=== PATIENT | female | born 1980 | race African-American/Black ===

== ENCOUNTER 2024-01-12 09:09 | Outpatient (CLI) | payer OTHER, SELFPAY ==
--- NOTE | ~2024-01-12 | MMUS_ITS ---
EXAMINATION: MM diagnostic dora BI w nilsa, US breast BI limited HISTORY: Palpable lump at the 3:00 location of the left breast TECHNIQUE: Craniocaudal, mediolateral, and mediolateral oblique 3-D tomosynthesis images of the breas ts were performed and synthetic 2-D images were generated. CAD analysis was submitted and interpreted . High resolution limited bilateral breast ultrasound was performed. COMPARISON: None, baseline BREAST PARENCHYMAL COMPOSITION: The breasts are extremely dense, which lowers the sensitivity of mamm ography. FINDINGS: MAMMOGRAPHIC FINDINGS: Right breast: There is a 1.7 cm round, obscured, equal density mass in the middle third of the outer breast at the 9:00 location, approximately 5 cm from the nipple. No suspicious calcification or archi tectural distortion are identified. Left breast: There appears to be an approximately 1.9 cm obscured, low density mass in the middle thi rd of the outer breast at the 2:00 location, 6 cm from the nipple corresponding to the area of palpab le concern. There is a 2.2 cm round, obscured, equal density mass in the anterior/middle third of the inner breast at the 9:00 location, 3 cm from the nipple. No suspicious calcification or architectura l distortion are identified. ULTRASOUND: Right breast: There is a 1.3 cm cyst at the 9:00 location, 3 cm from the nipple. There is a 1.3 x 0.7 cm oval, circumscribed, parallel, hypoechoic mass with no posterior features or internal vascularity at the 10:00 location, 3 cm from the nipple. An 8 mm round mass with similar sonographic features is seen at the 11:00 location, 2 cm from the nipple. A 4 mm mass with similar sonographic features is s een at the 12:00 location, 4 cm from the nipple. Left breast: There is a 2 cm cyst of the breast at the 2:00 location, 5 cm from the nipple correspond ing to the palpable abnormality of concern with a contiguous 6 mm complex cystic and solid component. There is a 9 mm round cyst at the 12:00 location, 4 cm from the nipple. There is a 5 mm cyst at the 1:00 location, 4 cm from the nipple. There is a 2.2 x 1.6 cm cyst at the 8:00 location, 3 cm from the nipple. A 6 mm cyst is noted at the 9:00 location, 3 cm from the nipple. There is a 1.9 cm cyst at t he 10:00 location, 4 cm from the nipple. IMPRESSION: 1. Probably benign left breast mass corresponding to the palpable abnormality of concern and probably benign masses at the 10:00, 11:00, and 12:00 locations of the right breast as detailed above. 2. Recommend 6 month follow-up bilateral diagnostic mammogram and ultrasound. BI-RADS category 3, probably benign findings. Reviewed, dictated and finalized at location L. [employer] IMPRESSION: 1. Probably benign left breast mass corresponding to the palpable abnormality o f concern and probably benign masses at the 10:00, 11:00, and 12:00 locations o f the right breast as detailed above. 2. Recommend 6 month follow-up bilateral diagnostic mammogram and ultrasound. BI-RADS category 3, probably benign findings.
== END 2024-01-12 09:10 | disposition home or self-care (01) ==
PROVIDERS: PCP Nurse Practitioner Family; Visit Provider Family Medicine
DX: Z12.31 Encounter for screening mammogram for malignant neoplasm of breast (principal); R92.8 Other abnormal and inconclusive findings on diagnostic imaging of breast
CPT/HCPCS: 76642; 77062; 77066; G0279

== ENCOUNTER 2024-02-29 08:26 | Outpatient (CLI) | payer OTHER, SELFPAY ==
--- NOTE | ~2024-02-29 | US_ITS ---
EXAMINATION: US pelvic complete DATE: 02/29/2024 09:35 INDICATION: Pelvic pain Comparison:No prior studies for comparison. TECHNIQUE: Multiple transabdominal and endovaginal sonographic images of the pelvis performed. FINDINGS: The uterus measures 10 x 5.3 x 5.8. The endometrial complex measures 6.5. The right ovary measures 6.5 x 4.3 x 5.3 cm and the left ovary measures 4.8 x 1.9 x 3.4 cm. There is a right ovarian cyst measuring 3.2 cm. There are small follicles in each ovary. Normal doppler signal in both ovaries. There is no free fluid in the pelvis. There are no abnormal masses seen on either side. IMPRESSION: 1. Right ovarian cyst measuring 3.2 cm. Reviewed, dictated and finalized at location B.
== END 2024-02-29 08:27 ==
PROVIDERS: PCP Nurse Practitioner; Visit Provider Nurse Practitioner
DX: N92.0 Excessive and frequent menstruation with regular cycle (principal); N83.201 Unspecified ovarian cyst, right side
CPT/HCPCS: 76856

== ENCOUNTER 2024-06-13 20:50 | Observation (INO) | payer OTHER, SELFPAY ==
--- NOTE | ~2024-06-13 | XR_ITS ---
EXAMINATION: XR chest 1V portable Exam Date/Time: 06/13/2024 22:23 CDT HISTORY: dyspnea Comparison: 09/24/2023. RESULT: Lines, tubes, and devices: None. Lungs and pleura: Clear. Cardiomediastinal silhouette: Stable. Other: No acute osseous or upper abdominal finding. IMPRESSION: No acute cardiopulmonary process. Reviewed, dictated and finalized at location K.
[2024-06-13 21:09] VITALS: BP 126/69; PULSE 95; RESP 20; TEMP 36.6; O2SAT 100
--- NOTE | 2024-06-13 21:27 | ECG_ITS ---
Test Date: 2024-06-13 21:58:02 Measurements Intervals [place] Rate: 87 P: 64 MT: 160 QRS: 27 QRSD: 81 T: 33 QT: 374 QTc: 450 Interpretive Statements SINUS RHYTHM No previous ECG available for comparison Electronically Signed On 06-14-2024 14:41:02 CDT by Ally Burdick M.D.
[2024-06-13 21:51] VITALS: RESP 18
[2024-06-13 21:52] VITALS: BP 113/74; PULSE 86; RESP 15; O2SAT 100
[2024-06-13 21:53] LABS: BEDSIDEPREGUCG Negative
[2024-06-13 21:59] LABS: Basophils Absolute Auto 0.1 K/mm3 (0.0-0.1); Basophils Percent Auto 1.2 % (0.2-1.2); Eosinophils Percent Auto 0.8 % (0-4.4); Hematocrit 21.8 % (37.0-47.0); Immature Granulocyte Absolute 0.01 K/mm3 (0.00-0.031); Immature Granulocyte Percent A 0.2 % (0-0.5); Lymphocytes Absolute Auto 1.63 K/mm3 (0.9-3.2); Lymphocytes Percent Auto 31.7 % (18.3-44.2); Mean Corpuscular HGB Conc 28.9 g/dl (32-36); Mean Corpuscular Hemoglobin 21.3 pg (26-34); Mean Corpuscular Volume 73.6 fl (80-100); Mean Platelet Volume 9.8 fl (7.4-10.4); Monocytes Absolute Auto 0.6 K/mm3 (0.1-0.6); Monocytes Percent Auto 11.1 % (2.6-8.5); Neutrophils Absolute Auto 2.8 K/mm3 (1.3-6.7); Platelet Count Result 380 k/mm3 (150-375); Red Blood Count 2.96 M/mm3 (4.2-5.4); Red Cell Distribution Width 17.9 % (11.5-14.5); White Blood Count 5.1 K/mm3 (4.5-10.0)
[2024-06-13 22:00] LABS: Reticulocyte Hemoglobin Conten 20.5 pg (28.2-36.6); Reticulocyte Percent 1.49 % (0.7-4.3); Reticulocytes Absolute 0.04 10^6/uL (0.02-0.10)
[2024-06-13 22:02] LABS: Add Urine Microscopic? NO; Appearance Urine Clear (Clear); Bilirubin Urine Negative (Negative); Blood Urine Negative (Negative); Color Urine Yellow (Yellow); Glucose Urine UA Negative (Negative); Ketones Urine Trace mg/dL (Negative); Leukocyte Esterase Ur Negative LEU/UL (Negative); Nitrate Urine Negative (Negative); Protein Urine Negative (Negative); Specific Grav Ur 1.024 (1.001-1.035)
[2024-06-13 22:10] LABS: Prothrombin Time 13.9 Seconds (11.1-14.7)
[2024-06-13 22:11] LABS: Partial Thromboplastin Time 26.8 Seconds (22.3-36.8)
[2024-06-13 22:18] LABS: Hemoglobin 6.3 g/dL (12.0-15.0)
[2024-06-13 22:20] LABS: NT Pro B Type Natriuretic Pept < 20 pg/mL (19.9-100); Platelet Estimate Slightly Increased (Adequate); Troponin I < 0.012 ng/mL (0.000-0.034)
[2024-06-13 22:21] LABS: Anisocytosis 2+; Schistocytes Rare
[2024-06-13 22:22] LABS: Hypochromasia 2+
[2024-06-13 22:24] LABS: Iron 23 ug/dL (37-170)
--- NOTE | 2024-06-13 22:30 | ED.GENADULT ---
HPI - General Adult General Chief complaint: Recheck/Abnormal Lab/Rx Stated complaint: low hgb Time Seen by Provider: 06/13/24 21:18 History of Present Illness HPI narrative: Patient is a 44-year-old female who presents emergency department chief complaint of low hemoglobin. Patient has prior history of anemia has had iron infusions in the past and reports that she has been feeling lightheaded the patient had outpatient blood work done by her primary care provider who called her and told her hemoglobin was 6. The patient reports that she has felt a little short of breath with exertion and reports that the symptoms are improved with rest Related Data Allergies Allergy/AdvReac Type Severity Reaction Status Date / Time No Known Allergies Allergy Verified 06/13/24 21:11 Review of Systems Review of Systems: A 10 system review of systems was completed on the patient and is negative except for what is stated in the HPI. Nursing and ancillary documentation was reviewed. Exam Narrative: GENERAL: Well-appearing, well-nourished, and in no acute distress. HEAD: Normocephalic, atraumatic. EYES: PERRLA and EOMI. ENT: Nares clear, no rhinorrhea or epistaxis. Mucous membranes moist. NECK: Supple. CHEST: Clear to auscultation. No respiratory distress. HEART: Regular rate and rhythm. No murmur heard. Normal peripheral pulses. ABDOMEN: Soft, nontender, nondistended, normal active bowel sounds. EXTREMITIES: Normal range of motion. No edema. SKIN: Warm, dry, no rash. NEURO: No focal deficits. Alert and oriented x3. PSYCH: Normal mood and affect. Course Vital Signs Vital signs: Vital Signs Temperature 36.6 C 06/13/24 21:09 Pulse Rate 95 06/13/24 21:09 Respiratory Rate 20 06/13/24 21:09 Blood Pressure 126/69 06/13/24 21:09 Pulse Oximetry 100 06/13/24 21:09 Oxygen Delivery Room Air 06/13/24 21:09 Temperature 36.6 C 06/13/24 21:09 Pulse Rate 86 06/13/24 21:52 Respiratory Rate 15 06/13/24 21:52 Blood Pressure 113/74 06/13/24 21:52 Pulse Oximetry 100 06/13/24 21:52 Oxygen Delivery Room Air 06/13/24 21:09 Medical Decision Making [facility] Narrative Medical decision making narrative: Differential diagnosis includes symptomatic anemia, GI bleed, chronic anemia, Laboratory studies were obtained showed hemoglobin of 6.3 Anemia labs were ordered 2 units of packed red blood cells were ordered for the patient case was discussed with the hospitalist patient admitted for observation Vital Signs Vital Signs: Vital Signs Temperature 36.6 C 06/13/24 21:09 Pulse Rate 95 06/13/24 21:09 Respiratory Rate 20 06/13/24 21:09 Blood Pressure 126/69 06/13/24 21:09 Pulse Oximetry 100 06/13/24 21:09 Oxygen Delivery Room Air 06/13/24 21:09 Temperature 36.6 C 06/13/24 21:09 Pulse Rate 86 06/13/24 21:52 Respiratory Rate 15 06/13/24 21:52 Blood Pressure 113/74 06/13/24 21:52 Pulse Oximetry 100 06/13/24 21:52 Oxygen Delivery Room Air 06/13/24 21:09 Lab Data 06/13/24 21:48 06/13/24 21:47 Labs: Lab Results 06/13/24 06/13/24 06/13/24 Range/Units 21:47 21:48 21:51 WBC 5.1 (4.5-10.0) K/mm3 RBC 2.96 L (4.2-5.4) M/mm3 Hgb 6.3 L* (12.0-15.0) g/dL Hct 21.8 L (37.0-47.0) % MCV 73.6 L (80-100) fl MCH 21.3 L (26-34) pg MCHC 28.9 L (32-36) g/dl RDW 17.9 H (11.5-14.5) % Plt Count 380 H (150-375) k/mm3 MPV 9.8 (7.4-10.4) fl Immature Gran % (Auto) 0.2 (0-0.5) % Neut % (Auto) 55.0 (45.5-73.1) % Lymph % (Auto) 31.7 (18.3-44.2) % [place] % (Auto) 11.1 H (2.6-8.5) % Eos % (Auto) 0.8 (0-4.4) % Baso % (Auto) 1.2 (0.2-1.2) % Lymph # (Auto) 1.63 (0.9-3.2) K/mm3 [place] # (Auto) 0.6 (0.1-0.6) K/mm3 Eos # (Auto) 0.0 (0-0.3) K/mm3 Baso # (Auto) 0.1 (0.0-0.1) K/mm3 Abs Immat Gran (auto) 0.01 (0.00-0.031) K/mm3 Absolute Neuts (auto)
[2024-06-13 22:33] LABS: Percent Iron Saturation 5 % (20-50)
[2024-06-13 22:38] LABS: Alanine Aminotransferase 12 U/L (6-35); Albumin Level 4.2 g/dL (3.5-5.1); Alkaline Phosphatase 66 U/L (38-126); Anion Gap 10 mmol/L (4-12); Aspartate Amino Transferase 21 U/L (14-36); Bilirubin,Total 0.3 mg/dL (0.2-1.3); Blood Urea Nitrogen 15 mg/dL (7-17); Calcium 8.7 mg/dL (8.4-10.2); Carbon Dioxide 24 mmol/L (22-30); Chloride 102 mmol/L (98-107); Estimated CRCL calculation 54 ml/min; Estimated Glomerular Filt Rate > 60; Glucose 96 mg/dL (65-110); Potassium 3.5 mmol/L (3.4-5.0); Sodium 136 mmol/L (137-145)
[2024-06-13 22:51] VITALS: BP 111/74; PULSE 84; RESP 18; O2SAT 100
--- NOTE | 2024-06-13 22:54 | PC.NURSE ---
second type and screen added on in [facility].
[2024-06-13 23:18] VITALS: BP 113/77; PULSE 90; RESP 19; O2SAT 99
--- NOTE | 2024-06-13 23:33 | PM.IMHP ---
H&P: HPI History of Present Illness Date/Time: 06/13/24 23:33 Chief Complaint: Fatigue, abnormal labs Narrative: Patient is a 44-year-old female with past medical history of G6PD deficiency, iron deficient anemia presents to ED with complaints of generalized weakness and abnormal labs. Patient has a known history of anemia since childhood and has had iron tablets before, iron infusions when she was [place]. She has known G6PD deficiency and has family history with her brother also having G6PD deficiency. She has never needed blood transfusion in the past. She has no other family history of anemia. She was told that she may have a hemolytic anemia. In the ED: Patient's hemoglobin 6.3, 2 units of packed red blood cells ordered. She is hemodynamically stable. Patient admitted for observation for symptomatic anemia. Review of Systems Review of Systems: Constitutional: No Fever, No Chills, No Night Sweats, endorses fatigue and generalized weakness ENT/Mouth: No Hearing Changes, No Ear Pain, No Nasal Congestion, No Sinus Pain, No Hoarseness, No sore throat, No Rhinorrhea, No Swallowing Difficulty Eyes: No Eye Pain, No Redness, No Vision Changes Cardiovascular: No Chest Pain, No Palpitations, No Dyspnea on Exertion, No Orthopnea, No Claudication, No Edema Respiratory: No Cough, No Sputum, No Wheezing, endorses some shortness of breath Gastrointestinal: No Nausea, No Vomiting, No Diarrhea, No Constipation, No Abdominal Pain, No Heartburn, No Hematochezia, No Melena Genitourinary: No Dysuria, No Urinary Frequency, No Hematuria, No Urinary Incontinence, No Urgency Musculoskeletal: No Arthralgias, No Myalgias, No Joint Swelling, No Joint Stiffness, No Back Pain Skin: No Skin Lesions, No Pruritis, No Hair Changes Neuro: No Weakness, No Numbness, No Paresthesias, No Loss of Consciousness, No Syncope, No Dizziness, No Headache Psych: No Anxiety/Panic, No Depression, No Insomnia Heme: No Bruising, No Bleeding Lymph: No Adenopathy Endocrine: No Polyuria, No Polydipsia, No Temperature Intolerance PMFSH Past Medical History Medical History (Updated 06/13/24 @ 23:38 by Cas Spicer DO) Anemia, hemolytic, G6PD deficiency Migraine Family History Family History (Updated 06/13/24 @ 23:38 by Cas Spicer DO) Sibling G6PD deficiency Social History Social History (Updated 06/13/24 @ 23:38 by Cas Spicer DO) Social History: Meds Home Medications and Allergies Home Medications Medication Instructions Recorded Confirmed Type topiramate 25 mg tablet 50 mg PO BID PRN Migraine Headache 06/13/24 06/13/24 History trazodone 50 mg tablet 50 mg PO HS 06/13/24 06/13/24 History Allergies Allergy/AdvReac Type Severity Reaction Status Date / Time No Known Allergies Allergy Verified 06/13/24 21:11 Vital Signs Vital Signs - 24 hr 06/13/24 21:09 06/13/24 21:51 06/13/24 21:52 Temperature 36.6 C Pulse Rate 95 86 Respiratory Rate 20 18 15 Blood Pressure 126/69 113/74 Pulse Oximetry 100 100 Oxygen Delivery Room Air 06/13/24 22:51 06/13/24 23:18 Temperature Pulse Rate 84 90 Respiratory Rate 18 19 Blood Pressure 111/74 113/77 Pulse Oximetry 100 99 Oxygen Delivery Exam Narrative: - GENERAL: Pleasant woman in no acute distress. Well-nourished. - EYES: EOMI. Anicteric. - HENT: Moist mucous membranes. - LUNGS: Clear to auscultation bilaterally, no wheezing, rhonchi, or rales. - CARDIOVASCULAR: Regular rate and rhythm. No murmur. No JVD. - ABDOMEN: Soft, non-tender and non-distended. No palpable masses. - EXTREMITIES: No edema. Peripheral pulses 2+. Non-tender. - NEUROLOGIC: No focal neurological deficits. CN II-XII grossly intact. - PSYCHIATRIC: Awake, Alert and oriented x 3. Appropriate mood and affect. - SKIN: No rashes or lesions. Warm. - LYMPH: No cervical lymphadenopathy. H&P: Results Labs Labs: Short CBC 06/13/24 Range/Units 21:48 WB
[2024-06-13 23:41] VITALS: BMI 26.9
--- NOTE | 2024-06-13 23:56 | ADMGEN ---
This patient, Chioma Kline, was admitted to [facility] Surg Room 323-02. Patient/family oriented to hospital policies and general routines including ID bracelet, bed and alarms, visiting hours, pain management, procedures, bathroom and other care routines, personal items, smoking policy, room service/diet, and visiting hours. Information on how to activate the Rapid Response Team has been discussed. Patient/Family are encouraged to report perceived risks to care and to ask questions if they do not understand what they are told or what they should do.
[2024-06-14] VITALS (15 sets, daily range): BP systolic 101–135; BP diastolic 54–74; PULSE 80–103; RESP 14–20; TEMP 35.9–37.1; O2SAT 98–100
[2024-06-14 00:17] LABS: Lactate Dehydrogenase 141 U/L (120-246)
[2024-06-14 00:27] LABS: Fibrinogen 261 mg/dl (215-510)
[2024-06-14 00:29] LABS: Hematocrit 20.2 % (37.0-47.0); Hemoglobin 5.9 g/dL (12.0-15.0)
[2024-06-14 00:30] LABS: Folic Acid 14.3 ng/mL (2.76->20)
[2024-06-14] MEDS: SODIUM CHLORIDE 0.9% IV 250 ML 30 ML IV CONT (00:40)
[2024-06-14] MEDS: traZODone HCL 50 MG TABLET PO (00:41)
[2024-06-14 08:03] LABS: Hematocrit 27.3 % (37.0-47.0); Hemoglobin 8.2 g/dL (12.0-15.0)
[2024-06-14] MEDS: FERROUS SULFATE 325 MG TABLET DR PO (09:14)
--- NOTE | 2024-06-14 13:37 | PM.DS ---
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 She should avoid medications that interfere with G6PD, Elizabeth beans -unclear what triggered this anemia event, ordering hemolysis labs -hemoglobin 6.3 on presentation, giving 2 units packed red blood cells in ED -no GI bleed -patient may need to establish care with rehabilitation director outpatient for iron infusions and monitoring anemia -checking ferritin, fibrinogen, iron, TIBC, LDH, reticulocyte, TSH, B12, folic acid # chronic conditions -history of migraines: Topamax -insomnia: Trazodone Diet: Regular DVT prophylaxis: SCDs Code status: Full code Disposition: Home tomorrow DS: Summary Hospital Course Reason for hospitalization: Hemolytic anemia Hospital Course: Patient is a 44-year-old female with past medical history of G6PD deficiency, iron deficient anemia presents to ED with complaints of generalized weakness and abnormal labs. Patient has a known history of anemia since childhood and has had iron tablets before, iron inf[place] was [place]. She has known G6PD deficiency and has family history with her brother also having G6PD deficiency. She has never needed blood transfusion in the past. She has no other family history of anemia. She was told that she may have a hemolytic anemia. In the ED: Patient's hemoglobin 6.3, 2 units of packed red blood cells ordered. She is hemodynamically stable. Patient was admitted for observation for symptomatic anemia. 06/14/2024: DISCHARGED After 2 units of PRBCs patient's hemoglobin stable at 8.2 no signs of any overt bleeding and remained hemodynamically stable. Patient states she was prescribed iron pills by her PCP but had not been taking them educated to continue use. Referred patient to our rehabilitation director group for continued follow-up she will likely need further transfusions of iron. Patient with no complaints denied any chest pain or shortness of breath or dizziness symptoms had overall improved. She was discharged home with spouse order given for follow-up CBC in 1 week. Time Spent with Patient Time attestation: Total time spent providing and/or coordinating discharge services: Time spent: Greater than 30 minutes Exam Narrative: - GENERAL: Pleasant woman in no acute distress. Well-nourished. - EYES: EOMI. Anicteric. - HENT: Moist mucous membranes. - LUNGS: Clear to auscultation bilaterally, no wheezing, rhonchi, or rales. - CARDIOVASCULAR: Regular rate and rhythm. No murmur. No JVD. - ABDOMEN: Soft, non-tender and non-distended. No palpable masses. - EXTREMITIES: No edema. Peripheral pulses 2+. Non-tender. - NEUROLOGIC: No focal neurological deficits. CN II-XII grossly intact. - PSYCHIATRIC: Awake, Alert and oriented x 3. Appropriate mood and affect. - SKIN: No rashes or lesions. Warm. - LYMPH: No cervical lymphadenopathy. DS: Data Data Completed and Pending Labs on day of discharge: Labs from last 24 hours 06/14/24 06/13/24 06/13/24 07:41 23:53 23:47 WBC RBC Hgb 8.2 L 5.9 L* Hct 27.3 L 20.2 L* MCV MCH MCHC RDW Plt Count MPV Immature Gran % (Auto) Neut % (Auto) Lymph % (Auto) [place] % (Auto) Eos % (Auto) Baso % (Auto) Lymph # (Auto) [place] # (Auto) Eos # (Auto) Baso # (Auto) Abs Immat Gran (auto) Absolute Neuts (auto) Absolute Nucleated RBC Nucleated RBC % Platelet Estimate Hypochromasia Anisocytosis Schistocytes Absolute Retic Percent Retic Immature Retic Fracti
[2024-06-14 14:56] LABS: Hemoglobin 8.3 g/dL (12.0-15.0)
== END 2024-06-14 15:22 | disposition home or self-care (01) ==
LOC: ANHED 22:49 → ANH3MEDSUR 06-14 07:09
PROVIDERS: Admitting Provider Student in an Organized Health Care Education/Training Program; Emergency Provider Emergency Medicine; Visit Provider Nurse Practitioner Family
DX: D55.0 Anemia due to glucose-6-phosphate dehydrogenase [G6PD] deficiency (principal); G47.00 Insomnia, unspecified
CPT/HCPCS: 36415; 36430; 71045; 80053; 81003; 81025; 82607; 82728; 82746; 83540; 83550; 83615; 83880; 84443; 84484; 85014; 85018; 85025; 85046; 85384; 85610; 85730; 86850; 86880; 86900; 86901; 86920; 93005; 99285; A9270; G0378; J7050; P9016

== ENCOUNTER 2024-06-21 11:39 | Outpatient (CLI) | payer OTHER, SELFPAY ==
[2024-06-21 11:51] LABS: Basophils Absolute Auto 0.1 K/mm3 (0.0-0.1); Basophils Percent Auto 1.4 % (0.2-1.2); Eosinophils Absolute Auto 0.1 K/mm3 (0-0.3); Eosinophils Percent Auto 2.2 % (0-4.4); Hematocrit 30.3 % (37.0-47.0); Hemoglobin 9.4 g/dL (12.0-15.0); Immature Granulocyte Absolute 0.02 K/mm3 (0.00-0.031); Immature Granulocyte Percent A 0.4 % (0-0.5); Lymphocytes Absolute Auto 1.24 K/mm3 (0.9-3.2); Lymphocytes Percent Auto 24.4 % (18.3-44.2); Mean Corpuscular Hemoglobin 23.5 pg (26-34); Mean Corpuscular Volume 75.8 fl (80-100); Mean Platelet Volume 9.3 fl (7.4-10.4); Monocytes Absolute Auto 0.4 K/mm3 (0.1-0.6); Monocytes Percent Auto 8.7 % (2.6-8.5); Neutrophils Absolute Auto 3.2 K/mm3 (1.3-6.7); Neutrophils Percent Auto 62.9 % (45.5-73.1); Platelet Count Result 323 k/mm3 (150-375); Red Cell Distribution Width 18.8 % (11.5-14.5); White Blood Count 5.1 K/mm3 (4.5-10.0)
[2024-06-21 12:03] LABS: Hypochromasia 2+; Platelet Estimate Adequate (Adequate); Schistocytes None Seen
[2024-06-21 12:04] LABS: Anisocytosis 1+; Microcytosis 1+ (NORMAL)
[2024-06-21 12:49] LABS: Iron 31 ug/dL (37-170)
[2024-06-21 12:52] LABS: Alanine Aminotransferase 15 U/L (6-35); Alkaline Phosphatase 60 U/L (38-126); Anion Gap 9 mmol/L (4-12); Aspartate Amino Transferase 20 U/L (14-36); Bilirubin,Total 0.3 mg/dL (0.2-1.3); Blood Urea Nitrogen 12 mg/dL (7-17); Calcium 8.8 mg/dL (8.4-10.2); Carbon Dioxide 24 mmol/L (22-30); Chloride 104 mmol/L (98-107); Estimated Glomerular Filt Rate > 60; Glucose 75 mg/dL (65-110); Potassium 3.8 mmol/L (3.4-5.0); Sodium 137 mmol/L (137-145)
[2024-06-21 13:02] LABS: Percent Iron Saturation 7 % (20-50)
[2024-06-21 13:25] LABS: Ferritin 7.39 ng/mL (6.24-137)
== END 2024-06-21 11:40 | disposition home or self-care (01) ==
LOC: ANHLAB 11:42
PROVIDERS: Visit Provider Internal Medicine Hematology & Oncology
DX: D64.9 Anemia, unspecified (principal)
CPT/HCPCS: 36415; 80053; 82607; 82728; 82746; 83540; 83550; 85025

== ENCOUNTER 2024-07-18 00:37 | Day surgery (SDC) | payer OTHER, SELFPAY ==
[2024-07-07 13:20] VITALS: BMI 25.0
--- NOTE | 2024-07-07 13:50 | PC.NURSE ---
Patient states she does get nauseated when not able to eat, ordered Zofran per Dr. Pham but instructed pt to check with Dr. Elliott office to make sure she is okay to take this medication with the G6PD deficiency. Pt verbalizes understanding.
[2024-07-18 11:31] VITALS: BP 115/73; PULSE 104; RESP 18; TEMP 36.1; O2SAT 100; BMI 26.0
[2024-07-18] MEDS: LACTATED RINGERS 1,000 ML 150 ML IV CONT (11:34)
--- NOTE | 2024-07-18 11:58 | WPDANESEPPF ---
Anes - Initial Pre Proc Eval Procedure: Operation Date: 07/18/24 12:30 Proposed Procedures p Colonoscopy - Fabrizio Palencia MD Date/Time: 07/18/24 11:58 Surgeon: Fabrizio Palencia MD Pre Op Diagnosis: anemia, family history of cancer Patient Data Age: 44 Gender: F Height: 1.6 m Weight: 66.7 kg Last Vital Signs Temp 96.9 F L 07/18/24 11:31 Pulse 104 H 07/18/24 11:31 Resp 18 07/18/24 11:31 BP 115/73 07/18/24 11:31 Pulse Ox 100 07/18/24 11:31 O2 Del Method Room Air 07/18/24 11:31 Allergies Allergy/AdvReac Type Severity Reaction Status Date / Time No Known Allergies Allergy Verified 07/18/24 11:26 Home Medications Medication Instructions Recorded Confirmed Type trazodone 50 mg tablet 50 mg PO HS PRN Insomnia 06/13/24 07/18/24 History ferrous sulfate 325 mg (65 mg 325 mg PO BID #60 tabs 06/14/24 07/18/24 Rx iron) tablet,delayed release atogepant 30 mg tablet (Qulipta) 30 mg PO DAILY PRN MIGRAINES 07/07/24 07/18/24 History ergocalciferol (vitamin D2) 1,250 50,000 unit PO WEEKLY 07/07/24 07/18/24 History mcg (50,000 unit) capsule Patient hx anesthesia problems: none Family hx anesthesia problems: none Results Review: All pre-operative results and documents have been reviewed as part of the pre-operative evaluation. [facility] Past Medical History Medical History (Updated 06/21/24 @ 18:18 by Alex Locke MD) Anemia, hemolytic, G6PD deficiency Migraine Family History Family History (Updated 06/13/24 @ 23:38 by Cas Spicer DO) Sibling G6PD deficiency Social History Social History (Updated 06/13/24 @ 23:38 by Cas Spicer DO) Social History: Smoking status: Never smoker Second hand tobacco smoke exposure: No Alcohol intake: current Substance use: never Substance use type: does not use Do You Feel Safe in your Home?: Yes Lack of Transportation: No Lack of Food: Never True Current Housing: I Have Housing Concerned About Future Housing: No Difficulty Paying Gas/Electric Bills: No Difficulty Paying for Meds: No Currently Unemployed: No Education: Bachelor's Degree Difficulty w/ Childcare or Family Care: No Living arrangements: with family Spiritual care concerns: No Anes - Eval Final PreProcedure Day of Procedure 07/18/24 11:58 Patient weight: normal Heart: regular rate and rhythm Lungs: clear to auscultation Airway: Mallampati scale class II Neurological: alert and oriented Last oral intake: >/= 8 hours ASA classification: II Emergent: no Anesthetic plan: proceed Anesthesia type and monitoring: general GIVS and standard monitoring Results Review: All pre-operative results and documents have been reviewed as part of the pre-operative evaluation. Informed Consent: The patient's anesthetic plan and its attendant risks and benefits were discussed with the patient/family/POA. Questions were solicited and answers provided to the satisfaction of the patient/family/POA.
--- NOTE | 2024-07-18 12:23 | PM.HPGS ---
History of Present Illness History of Present Illness Consent: Risks, benefits, and alternatives have been discussed and questions answered. Patient agrees to proceed with procedure. Chief complaint: anemia, family history of cancer Narrative: Chioma Kline is a 44 year old female here for first colonoscopy, also anemia that required blood transfusion, denies overt gib Review of Systems Review of Systems: All systems reviewed & are unremarkable except as noted in HPI and below PMFSH Past Medical History Medical History (Updated 07/18/24 @ 12:33 by Fabrizio Palencia MD) Anemia, hemolytic, G6PD deficiency Family history of colon cancer in father Migraine Family History Family History (Updated 06/13/24 @ 23:38 by Cas Spicer DO) Sibling G6PD deficiency Social History Social History (Updated 06/13/24 @ 23:38 by Cas Spicer DO) Social History: Smoking status: Never smoker Second hand tobacco smoke exposure: No Alcohol intake: current Substance use: never Substance use type: does not use Do You Feel Safe in your Home?: Yes Lack of Transportation: No Lack of Food: Never True Current Housing: I Have Housing Concerned About Future Housing: No Difficulty Paying Gas/Electric Bills: No Difficulty Paying for Meds: No Currently Unemployed: No Education: Bachelor's Degree Difficulty w/ Childcare or Family Care: No Living arrangements: with family Spiritual care concerns: No Meds Home Medications and Allergies Home Medications Medication Instructions Recorded Confirmed Type trazodone 50 mg tablet 50 mg PO HS PRN Insomnia 06/13/24 07/18/24 History ferrous sulfate 325 mg (65 mg 325 mg PO BID #60 tabs 06/14/24 07/18/24 Rx iron) tablet,delayed release atogepant 30 mg tablet (Qulipta) 30 mg PO DAILY PRN MIGRAINES 07/07/24 07/18/24 History ergocalciferol (vitamin D2) 1,250 50,000 unit PO WEEKLY 07/07/24 07/18/24 History mcg (50,000 unit) capsule Allergies Allergy/AdvReac Type Severity Reaction Status Date / Time No Known Allergies Allergy Verified 07/18/24 11:26 Vital Signs Vital Signs - 24 hr 07/18/24 11:31 Temperature 96.9 F L Pulse Rate 104 H Respiratory Rate 18 Blood Pressure 115/73 Pulse Oximetry 100 Oxygen Delivery Room Air Exam Const: General: comfortable and no acute distress HENMT: Face/Nose/Sinus: Normal nares present Eyes: General: appearance normal, both eyes and all related structures Neck: Neck: no JVD Resp: Auscultation: clear to auscultation bilaterally Cardio: Rate: regular rate Rhythm: regular rhythm GI: Inspection: non-distended GI Palp: Yes Soft to palpation Skin: General skin exam: normal color Neuro: General: gait normal Speech: normal speech Extrem: General: normal to inspection Psych: Mental Status: mental status grossly normal Assessment and Plan Assessment and plan (1) BARI (iron deficiency anemia): Code(s): D50.9 - Iron deficiency anemia, unspecified Status: Acute Assessment and Plan: colonoscopy if negative then will set up egd at another time (2) Family history of colon cancer in father: Code(s): Z80.0 - Family history of malignant neoplasm of digestive organs Status: Acute
[2024-07-18 12:37] VITALS: BP 105/48; PULSE 98; RESP 20; O2SAT 100
[2024-07-18 12:47] VITALS: BP 91/63; PULSE 96; RESP 22; O2SAT 100
[2024-07-18 12:57] VITALS: BP 105/66; PULSE 88; RESP 20; O2SAT 100
== END 2024-07-18 13:10 | disposition home or self-care (01) ==
PROVIDERS: Referring Provider Internal Medicine Hematology & Oncology; Visit Provider Internal Medicine Gastroenterology
PROC: 0DJD8ZZ Inspection of Lower Intestinal Tract, Via Natural or Artificial Opening Endoscopic (ICD-10-PCS; CPT 45378; principal; 2024-07-18 12:30)
DX: D64.9 Anemia, unspecified (principal); D50.9 Iron deficiency anemia, unspecified; Z80.0 Family history of malignant neoplasm of digestive organs
CPT/HCPCS: 45378; J2704; J7120

== ENCOUNTER 2024-08-29 17:20 | Outpatient (CLI) | payer OTHER, SELFPAY ==
[2024-08-29 18:11] LABS: Hematocrit 28.4 % (37.0-47.0); Hemoglobin 9.1 g/dL (12.0-15.0)
== END 2024-08-29 17:21 | disposition home or self-care (01) ==
LOC: ANHLAB 17:22
PROVIDERS: Visit Provider Anesthesiology
DX: D64.9 Anemia, unspecified (principal)
CPT/HCPCS: 36415; 85014; 85018

== ENCOUNTER 2024-09-05 01:12 | Day surgery (SDC) | payer OTHER, SELFPAY ==
[2024-08-29 12:20] VITALS: BMI 26.6
--- NOTE | 2024-08-29 12:24 | PC.NURSE ---
Report to the Outpatient Waiting Room, entrance under the green pavilion located off [facility], at time _0700_ on date _[id number]_. Planned Procedure Time: _0900_.? Time changes happen often and if your time is changed the preop area will call you the afternoon before. - You and your visitor will be asked to self-screen and do not enter if you have any COVID symptoms. Please call surgeon if you need to reschedule. - A mask is optional within the hospital at this time. Patients may have clear liquids (water, carbonated beverages, clear teas, apple juice) until 3 hours prior to surgery with a maximum of 20 ounces. - No food from midnight until time of surgery and no smoking Take only the following medications with a SIP of water on the morning of surgery: __None DO NOT STOP ANY OF YOUR OTHER PRESCRIPTION MEDICATIONS PRIOR TO SURGERY EXCEPT THE FOLLOWING Medications to discontinue per physician Vitamins Date to take last nrrx___[phone] Please no make-up, nail tuvaluan, hairspray, perfume, deodorant, or body powder the day of surgery.? No jewelry (including any body piercings) or valuables the day of surgery, leave them at home.? Please take a shower or bath the night before, or the morning of, surgery with an antibacterial soap.? Wear comfortable, loose fitting clothing.? - Jewelry must be removed prior to entering the operating room.? Rings and piercings that are not removed may be cut off. - The hospital will not accept responsibility for valuables.? - Please leave all valuables, including medications, at home the day of surgery. If you are going home after surgery, a licensed new autos delivery driver must drive you home.? - NO public transportation without another adult if you receive anesthesia. - We recommend that an adult stay with you for 24 hours following discharge. - We also recommend that you do not drive, make important decision, drink alcoholic beverages, or take any drugs that were not prescribed by your health care provider for at least 24 hours after your discharge time. Follow any additional instructions given to you from your surgeon. Telephone instructions given to _Chioma__and asked if any additional questions and then verbalized understanding. Patient advised to call surgeon office or pre surgery nurse liaison [phone] if any additional questions.
--- NOTE | 2024-09-04 15:45 | P.PNAN_ITS ---
Anes - Eval Pre Procedure Procedure: Operation Date: 09/05/24 11:00 Proposed Procedures p Hysteroscopy Dilation and Curettage - Albertina Rojas MD Date/Time: 09/04/24 15:45 Pre Op Diagnosis: menorrhagia with anemia Patient Data Age: 44 Gender: F Height: 1.6 m Weight: 68.2 kg Allergies Allergy/AdvReac Type Severity Reaction Status Date / Time No Known Allergies Allergy Verified 08/29/24 12:19 Home Medications Medication Instructions Recorded Confirmed Type trazodone 50 mg tablet 50 mg PO HS PRN Insomnia 06/13/24 08/29/24 History ferrous sulfate 325 mg (65 mg 325 mg PO BID #60 tabs 06/14/24 08/29/24 Rx iron) tablet,delayed release atogepant 30 mg tablet (Qulipta) 30 mg PO DAILY PRN MIGRAINES 07/07/24 08/29/24 History ergocalciferol (vitamin D2) 1,250 50,000 unit PO WEEKLY 07/07/24 08/29/24 History mcg (50,000 unit) capsule Patient hx anesthesia problems: none Family hx anesthesia problems: none Results Review: All pre-operative results and documents have been reviewed as part of the pre-operative evaluation. [facility] Past Medical History Medical History Anemia, hemolytic, G6PD deficiency Family history of colon cancer in father Migraine Family History Family History Sibling G6PD deficiency Social History Social History Social History: Smoking status: Never smoker Second hand tobacco smoke exposure: No Alcohol intake: current Substance use: never Substance use type: does not use Do You Feel Safe in your Home?: Yes Lack of Transportation: No Lack of Food: Never True Current Housing: I Have Housing Concerned About Future Housing: No Difficulty Paying Gas/Electric Bills: No Difficulty Paying for Meds: No Currently Unemployed: No Education: Bachelor's Degree Difficulty w/ Childcare or Family Care: No Living arrangements: with family Spiritual care concerns: No Exam Day of Procedure 09/04/24 15:45
--- NOTE | 2024-09-05 07:25 | WPDHPUPDATE1 ---
History and Physical Update Update Date/Time: 09/05/24 07:25 History and Physical has been reviewed, including an updated exam of the patient. There are NO changes in the patient's condition. Risks, benefits, and alternatives have been discussed and questions answered. Patient agrees to proceed with procedure.
--- NOTE | 2024-09-05 07:27 | PM.HPGS ---
History of Present Illness History of Present Illness Consent: Risks, benefits, and alternatives have been discussed and questions answered. Patient agrees to proceed with procedure. Chief complaint: menorrhagia with anemia Narrative: Chioma Kline is a 44 year old female for with heavy long cycles. Last hemoglobin was 8.8. Patient has a prior ablation in 2020 without success. Patient states she has a history of fibroids but current ultrasound shows no obvious fibroids. Plan is to proceed with D&C hysteroscopy for further evaluation. Risks of infection, bleeding, perforation, and inability to enter the cavity are reviewed. Patient voices understanding and agrees to proceed. Review of Systems Review of Systems: not repeated day of surgery; patient states no changes in status PMFSH Past Medical History Medical History (Updated 09/05/24 @ 07:33 by Albertina Rojas MD) Anemia, hemolytic, G6PD deficiency Depression with anxiety Family history of colon cancer in father Migraine Surgical History Surgical History (Updated 09/05/24 @ 07:32 by Ablertina Rojas MD) History of abdominoplasty History of bilateral tubal ligation with 3rd History of breast lift History of x3 History of endometrial ablation Family History Family History Sibling G6PD deficiency Social History Social History Social History: Smoking status: Never smoker Second hand tobacco smoke exposure: No Alcohol intake: current Substance use: never Substance use type: does not use Do You Feel Safe in your Home?: Yes Lack of Transportation: No Lack of Food: Never True Current Housing: I Have Housing Concerned About Future Housing: No Difficulty Paying Gas/Electric Bills: No Difficulty Paying for Meds: No Currently Unemployed: No Education: Bachelor's Degree Difficulty w/ Childcare or Family Care: No Living arrangements: with family Spiritual care concerns: No Meds Home Medications and Allergies Home Medications Medication Instructions Recorded Confirmed Type trazodone 50 mg tablet 50 mg PO HS PRN Insomnia 06/13/24 08/29/24 History ferrous sulfate 325 mg (65 mg 325 mg PO BID #60 tabs 06/14/24 08/29/24 Rx iron) tablet,delayed release atogepant 30 mg tablet (Qulipta) 30 mg PO DAILY PRN MIGRAINES 07/07/24 08/29/24 History ergocalciferol (vitamin D2) 1,250 50,000 unit PO WEEKLY 07/07/24 08/29/24 History mcg (50,000 unit) capsule Allergies Allergy/AdvReac Type Severity Reaction Status Date / Time No Known Allergies Allergy Verified 08/29/24 12:19 Exam Const: General: healthy appearing and alert Orientation/consciousness: patient oriented x3 Resp: Effort & Inspection: normal respiratory effort GI: GI Palp: Yes Soft to palpation, No Tenderness to palpation present (GI) and No Palpable mass present : External Female Exam: normal external appearance Speculum Exam - Vagina: normal appearance of the vagina and normal vaginal discharge Speculum Exam - Cervix: normal appearance of the cervix Bimanual exam- vagina & uterus: uterine size normal and consistency normal Bimanual Exam- Adnexa, other: normal adnexae and No adnexal tenderness Neuro: General: patient oriented x3 Assessment and Plan Assessment and plan (1) Menorrhagia: Code(s): N92.0 - Excessive and frequent menstruation with regular cycle Status: Acute Assessment and Plan: plan to proceed with D&C hysteroscopy (2) Anemia: Code(s): D64.9 - Anemia, unspecified Status: Acute
[2024-09-05 09:17] VITALS: BMI 26.3
[2024-09-05 09:42] VITALS: BP 104/69; PULSE 97; TEMP 36.5; O2SAT 100
[2024-09-05] MEDS: LACTATED RINGERS 1,000 ML 30 ML IV CONT (09:48)
[2024-09-05] MEDS: ACETAMINOPHEN 500 MG TABLET 1000 MG PO (09:48)
[2024-09-05 09:49] LABS: BEDSIDEPREGUCG Negative (Negative)
--- NOTE | 2024-09-05 10:01 | P.PNAN_ITS ---
Anes - Initial Pre Proc Eval Procedure: Operation Date: 09/05/24 11:00 Proposed Procedures p Hysteroscopy Dilation and Curettage - Albertina Rojas MD Date/Time: 09/05/24 10:01 Surgeon: Albertina Rojas MD Pre Op Diagnosis: menorrhagia with anemia Patient Data Age: 44 Gender: F Height: 1.6 m Weight: 67.5 kg Last Vital Signs Temp 36.5 C 09/05/24 09:42 Pulse 97 09/05/24 09:42 BP 104/69 09/05/24 09:42 Pulse Ox 100 09/05/24 09:42 O2 Del Method Room Air 09/05/24 09:42 Allergies Allergy/AdvReac Type Severity Reaction Status Date / Time No Known Allergies Allergy Verified 08/29/24 12:19 Home Medications Medication Instructions Recorded Confirmed Type trazodone 50 mg tablet 50 mg PO HS PRN Insomnia 06/13/24 08/29/24 History ferrous sulfate 325 mg (65 mg 325 mg PO BID #60 tabs 06/14/24 08/29/24 Rx iron) tablet,delayed release atogepant 30 mg tablet (Qulipta) 30 mg PO DAILY PRN MIGRAINES 07/07/24 08/29/24 History ergocalciferol (vitamin D2) 1,250 50,000 unit PO WEEKLY 07/07/24 08/29/24 History mcg (50,000 unit) capsule Laboratory Tests 09/05/24 09:42 POC Urine HCG, Qual Negative (Negative) Patient hx anesthesia problems: none Family hx anesthesia problems: none Results Review: All pre-operative results and documents have been reviewed as part of the pre- operative evaluation. [facility] Past Medical History Medical History Anemia, hemolytic, G6PD deficiency Depression with anxiety Family history of colon cancer in father Migraine Surgical History Surgical History History of abdominoplasty History of bilateral tubal ligation with 3rd History of breast lift History of x3 History of endometrial ablation Family History Family History Sibling G6PD deficiency Social History Social History Social History: Smoking status: Never smoker Second hand tobacco smoke exposure: No Alcohol intake: current Substance use: never Substance use type: does not use Do You Feel Safe in your Home?: Yes Lack of Transportation: No Lack of Food: Never True Current Housing: I Have Housing Concerned About Future Housing: No Difficulty Paying Gas/Electric Bills: No Difficulty Paying for Meds: No Currently Unemployed: No Education: Bachelor's Degree Difficulty w/ Childcare or Family Care: No Living arrangements: with family Spiritual care concerns: No Anes - Eval Final PreProcedure Day of Procedure 09/05/24 10:01 Patient weight: overweight Heart: regular rate and rhythm Lungs: clear to auscultation Airway: Mallampati scale class 1 Neurological: alert and oriented Last oral intake: >/= 8 hours ASA classification: II Emergent: no Anesthetic plan: proceed Anesthesia type and monitoring: general GIVS and standard monitoring Results Review: All pre-operative results and documents have been reviewed as part of the pre- operative evaluation. Informed Consent: The patient's anesthetic plan and its attendant risks and benefits were discussed with the patient/family/POA. Questions were solicited and answers provided to the satisfaction of the patient/family/POA.
[2024-09-05 10:47] VITALS: BP 120/79; PULSE 91; RESP 16; O2SAT 100
--- NOTE | 2024-09-05 10:48 | W.PM.PROC2 ---
Procedure Note - Detailed Date of Procedure 09/05/24 Pre-op Diagnosis menorrhagia with anemia Post-op Diagnosis Same Procedure Performed D&C hysteroscopy Surgeon Albertina Rojas MD Anesthesia MAC Findings uterus sounds to 8cm and appears very scarred consistent with prior ablation Description of Procedure The patient is taken to the operating and placed under anesthesia in the dorsal lithotomy position. She was prepped and draped in usual sterile fashion. Linville speculum was placed in the vagina and the cervix grasped on the anterior lip with a tenaculum. The sound encounters stenosis at 4cm. The os Finders were used and the hysteroscope used to hydro dissect. The cavity appears very scarred consistent with prior ablation. The hysteroscope was removed and the uterus sounded to 8cm. The sharp OO curette is used to curette the endometrium until a good uterine cry was noted in all areas. Minimal materials obtained consistent with the visual appearance. All instruments are removed. Sponge, needle, and instrument counts are correct per the OR staff. The patient was awakened from anesthesia and taken to recovery in stable condition. Estimated Blood Loss 5 Drains No Packing No Pathology Yes ( Endometrial curettings) Complications No immediate complications Condition Stable Disposition PACU
[2024-09-05 11:15] VITALS: BP 117/80; PULSE 82; RESP 18; O2SAT 100
[2024-09-05] MEDS: oxyCODONE HCL (*CRX) 5 MG TAB IR PO (11:17)
[2024-09-05 11:44] VITALS: BP 122/74; PULSE 73; RESP 16
== END 2024-09-05 11:46 | disposition home or self-care (01) ==
PROVIDERS: Visit Provider Obstetrics & Gynecology Gynecology
PROC: 0U5B8ZZ Destruction of Endometrium, Via Natural or Artificial Opening Endoscopic (ICD-10-PCS; CPT 58563; principal; 2024-09-05 11:00)
DX: N92.0 Excessive and frequent menstruation with regular cycle (principal); D58.9 Hereditary hemolytic anemia, unspecified; D55.0 Anemia due to glucose-6-phosphate dehydrogenase [G6PD] deficiency; N99.85 Post endometrial ablation syndrome; F41.8 Other specified anxiety disorders; Z98.890 Other specified postprocedural states; Z98.51 Tubal ligation status; Z80.0 Family history of malignant neoplasm of digestive organs
CPT/HCPCS: 58558; 88305; A9270; J2003; J2250; J2704; J3010; J7120

== ENCOUNTER 2024-10-21 00:53 | Day surgery (SDC) | payer OTHER, SELFPAY ==
[2024-10-12 15:49] VITALS: BMI 25.7
[2024-10-21 12:15] VITALS: BP 122/70; PULSE 97; RESP 16; TEMP 36.2; O2SAT 100
[2024-10-21 12:23] LABS: BEDSIDEPREGUCG Negative (Negative)
[2024-10-21] MEDS: LACTATED RINGERS 1,000 ML 150 ML IV CONT (12:27)
--- NOTE | 2024-10-21 12:31 | P.PNAN_ITS ---
Anes - Initial Pre Proc Eval Procedure: Operation Date: 10/21/24 13:30 Proposed Procedures p Esophagogastroduodenoscopy - Fabrizio Palencia MD Date/Time: 10/21/24 12:31 Surgeon: Fabrizio Palencia MD Pre Op Diagnosis: iron def anemia Patient Data Age: 44 Gender: F Height: 1.6 m Weight: 67.1 kg Last Vital Signs Temp 36.2 C L 10/21/24 12:15 Pulse 97 10/21/24 12:15 Resp 16 10/21/24 12:15 BP 122/70 10/21/24 12:15 Pulse Ox 100 10/21/24 12:15 O2 Del Method Room Air 10/21/24 12:15 Allergies Allergy/AdvReac Type Severity Reaction Status Date / Time No Known Allergies Allergy Verified 10/21/24 12:11 Home Medications ?Medication ?Instructions ?Recorded ?Confirmed ?Type ferrous sulfate 325 mg (65 mg 325 mg PO BID #60 tabs 06/14/24 10/21/24 Rx iron) tablet,delayed release atogepant 30 mg tablet (Qulipta) 30 mg PO DAILY PRN MIGRAINES 07/07/24 10/21/24 History ergocalciferol (vitamin D2) 1,250 50,000 unit PO WEEKLY 07/07/24 10/21/24 History mcg (50,000 unit) capsule atomoxetine 40 mg PO DAILY 10/12/24 10/21/24 History zolpidem 5 mg PO HS 10/12/24 10/21/24 History Laboratory Tests 10/21/24 12:21 POC Urine HCG, Qual Negative (Negative) Patient hx anesthesia problems: none Family hx anesthesia problems: none Results Review: All pre-operative results and documents have been reviewed as part of the pre- operative evaluation. [facility] Past Medical History Medical History Depression with anxiety Family history of colon cancer in father Migraine Anemia, hemolytic, G6PD deficiency Surgical History Surgical History History of endometrial ablation History of breast lift History of abdominoplasty History of bilateral tubal ligation with 3rd History of x3 Family History Family History Sibling G6PD deficiency Social History Social History Social History: Smoking status: Never smoker Second hand tobacco smoke exposure: No Alcohol intake: current Substance use: never Substance use type: does not use Do You Feel Safe in your Home?: Yes Lack of Transportation: No Lack of Food: Never True Current Housing: I Have Housing Concerned About Future Housing: No Difficulty Paying Gas/Electric Bills: No Difficulty Paying for Meds: No Currently Unemployed: No Education: Bachelor's Degree Difficulty w/ Childcare or Family Care: No Living arrangements: with family Spiritual care concerns: No Anes - Eval Final PreProcedure Day of Procedure 10/21/24 12:31 Patient weight: overweight Heart: regular rate and rhythm Lungs: clear to auscultation Airway: Mallampati scale class II Last oral intake: >/= 8 hours ASA classification: II Emergent: no Anesthetic plan: proceed Anesthesia type and monitoring: general GIVS Results Review: All pre-operative results and documents have been reviewed as part of the pre- operative evaluation. Informed Consent: The patient's anesthetic plan and its attendant risks and benefits were discussed with the patient/family/POA. Questions were solicited and answers provided to the satisfaction of the patient/family/POA.
--- NOTE | 2024-10-21 12:32 | PM.HPGS ---
History of Present Illness History of Present Illness Consent: Risks, benefits, and alternatives have been discussed and questions answered. Patient agrees to proceed with procedure. Chief complaint: iron def anemia Narrative: Chioma Kline is a 44 year old female here for egd, h/o anemia, denies overt gib, she is not using blood thinners Review of Systems Review of Systems: All systems reviewed & are unremarkable except as noted in HPI and below PMFSH Past Medical History Medical History Depression with anxiety Family history of colon cancer in father Migraine Anemia, hemolytic, G6PD deficiency Surgical History Surgical History History of endometrial ablation History of breast lift History of abdominoplasty History of bilateral tubal ligation with 3rd History of x3 Family History Family History Sibling G6PD deficiency Social History Social History Social History: Smoking status: Never smoker Second hand tobacco smoke exposure: No Alcohol intake: current Substance use: never Substance use type: does not use Do You Feel Safe in your Home?: Yes Lack of Transportation: No Lack of Food: Never True Current Housing: I Have Housing Concerned About Future Housing: No Difficulty Paying Gas/Electric Bills: No Difficulty Paying for Meds: No Currently Unemployed: No Education: Bachelor's Degree Difficulty w/ Childcare or Family Care: No Living arrangements: with family Spiritual care concerns: No Meds Home Medications and Allergies Home Medications ?Medication ?Instructions ?Recorded ?Confirmed ?Type ferrous sulfate 325 mg (65 mg 325 mg PO BID #60 tabs 06/14/24 10/21/24 Rx iron) tablet,delayed release atogepant 30 mg tablet (Qulipta) 30 mg PO DAILY PRN MIGRAINES 07/07/24 10/21/24 History ergocalciferol (vitamin D2) 1,250 50,000 unit PO WEEKLY 07/07/24 10/21/24 History mcg (50,000 unit) capsule atomoxetine 40 mg PO DAILY 10/12/24 10/21/24 History zolpidem 5 mg PO HS 10/12/24 10/21/24 History Allergies Allergy/AdvReac Type Severity Reaction Status Date / Time No Known Allergies Allergy Verified 10/21/24 12:11 Vital Signs Vital Signs - 24 hr 10/21/24 12:15 Temperature 97.1 F L Pulse Rate 97 Respiratory Rate 16 Blood Pressure 122/70 Pulse Oximetry 100 Oxygen Delivery Room Air Exam Const: General: comfortable and no acute distress HENMT: Face/Nose/Sinus: Normal nares present Eyes: General: appearance normal, both eyes and all related structures Neck: Neck: no JVD Resp: Auscultation: clear to auscultation bilaterally Cardio: Rate: regular rate Rhythm: regular rhythm GI: Inspection: non-distended GI Palp: Yes Soft to palpation Skin: General skin exam: normal color Neuro: General: gait normal Speech: normal speech Extrem: General: normal to inspection Psych: Mental Status: mental status grossly normal Assessment and Plan Assessment and plan (1) BARI (iron deficiency anemia): Code(s): D50.9 - Iron deficiency anemia, unspecified Status: Acute Assessment and Plan: egd to assess if gi source
[2024-10-21 12:41] VITALS: BP 101/60; PULSE 97; RESP 18; O2SAT 100
[2024-10-21 12:51] VITALS: BP 103/68; PULSE 89; RESP 17; O2SAT 100
[2024-10-21 13:01] VITALS: BP 106/63; PULSE 91; RESP 18; O2SAT 100
== END 2024-10-21 13:22 | disposition home or self-care (01) ==
PROVIDERS: Anesthesiology; Visit Provider Internal Medicine Gastroenterology
PROC: 0DJ08ZZ Inspection of Upper Intestinal Tract, Via Natural or Artificial Opening Endoscopic (ICD-10-PCS; CPT 43235; principal; 2024-10-21 13:30)
DX: D50.9 Iron deficiency anemia, unspecified (principal); D55.0 Anemia due to glucose-6-phosphate dehydrogenase [G6PD] deficiency; K21.9 Gastro-esophageal reflux disease without esophagitis; F41.8 Other specified anxiety disorders; Z98.890 Other specified postprocedural states; Z98.891 History of uterine scar from previous surgery; Z98.51 Tubal ligation status; Z80.0 Family history of malignant neoplasm of digestive organs
CPT/HCPCS: 43239; 88305; J2704; J7120

== ENCOUNTER 2024-12-09 12:19 | Outpatient (CLI) | payer OTHER, SELFPAY ==
--- OUTSIDE RECORDS SUMMARY | 2024-12-09 12:24 | XMS_ITS | Data Portability ---
Author Organization [place] [facility] [employer], Main Office Address [address] [place] [address] Care Team Providers Care Tire Balancer Name Role Phone MARK BURDICK Primary Care Provider [phone] Assessment No assessment recorded. Plan of Treatment Reminders Order Date Submit Date Provider Last Modified By Organization Details Last Modified Time Details Appointments Physical/ Annual Wellness 30 2024 07:30A M VERNON Morgan Not available Not available Not available Lab TSH, serum or plasma 2023 024 [facility] (Lab), [address] [place], [address], 03/04/2024 16:07:48 CBC w/ auto diff 2023 024 [facility] (Lab), [address] [place], [address], 03/04/2024 16:07:48 glycohemo globin, total, blood [address] (Lab), [address] [place], [address], 03/11/2024 11:22:11 vitamin D, 25-hydrox y, total, serum [address] (Lab), [address] [place], [address], 06/20/2024 08:18:46 vitamin B12 + folate, serum or blood [address] (Lab), [address] [place], [address], 06/20/2024 08:18:46 iron + total iron-bind ing capacity (TIBC), serum 2023 024 [facility] (Lab), [address] [place], [address], 06/13/2024 22:02:04 CBC w/ auto diff 2023 024 [facility] (Lab), [address] [place], [address], 06/13/2024 22:02:04 Referral None recorded. Procedures None recorded. Surgeries None recorded. Imaging US, gallbladd er [email or web address] [place] [address] Imaging Center, [address] [facility] [address], [place], [address], 09/01/2024 10:12:14 Medication Orders Wegovy 2.4 mg/0.75 mL subcutane ous pen injector [address] [facility]41863, [address] [place], [place], [id number], 06/13/2024 14:51:38 topiramat e 25 mg tablet 2023 024 [facility] #88460, [address] [place], [place], [id number], 06/13/2024 15:28:04 Ubrelvy 50 mg tablet [address] [facility]38007, [address] [place], [place], [id number], 06/13/2024 14:51:44 Qulipta 10 mg tablet 2023 [facility] #88189, [address] [facility], [place], [place], [id number], 06/13/2024 16:11:07 ketoconaz ole 2 % shampoo 2023 [facility] #93154, [address] [facility], [place], [place], [id number], 08/18/2024 08:50:07 Wegovy 0.25 mg/0.5 mL subcutane ous pen injector 2023 [facility] #14200, [address] [facility], [place], [place], [id number], 08/18/2024 08:45:04 zolpidem 5 mg tablet 2023 [facility] #32064, [address] [facility], [place], [place], [id number], 10/04/2024 09:30:28 atomoxeti ne 40 mg capsule 2023 [facility] #16570, [address] [facility], [place], [place], [id number], 10/04/2024 09:30:27 Patient TargetsNo targets recorded. Patient InstructionsNo instructions recorded. Reason for Referral None Reported. Results Created Date Observation Date Name Description Value Unit Range Abnormal Flag Note LastModifiedBy Organization Detail LastModifiedTime Result Notes None recorded. Problems Name Problem SNOMED Code Status Onset Date Resolution Date Notes Provider Name and Address Organization Details Recorded Time Mixed anxiety and depressive disorder 780826215 Active 2021 Not Available [facility] 3 23:59:51 Depressive disorder 24618461 Active 2020 Not Available [facility] 3 23:59:51 Chronic insomnia 726802778 Active 2023 Mark Burdick MD [address], [address], [place], [address] , [place] [facility] 4 16:58:49 Overweight 871051115 Active 2023 Mark Burdick MD [address], [address], [place], [address] , [facility] 4 17:04:53 History of obesity 904716095 Active 2023 Mark Burdick MD [address], [address], [place], [address] , [facility] 4 17:05:13 Mammography abnormal 358234454 Active 2023 Mark Burdick MD [address], [address], [place], [address] , [facility] 4 10:45:55 Fatigue 96410826 Active 2023 VERNON Morgan [address], [address], [place], [address] , [facility] [employer] 4 08:58:28 Migraine with aura 7542253 Active 2023 VERNON Morgan [address], [address], [place], [address] , [place] [facility] 4 09:01:46 Iron deficiency anemia 92524424 Active 2023 VERNON Morgan [address], [place], [address] , [facility] 4 08:27:54 Vitamin D deficiency 37735345 Active 2023 VERNON Morgan [address], [place], [address] , [facility] 4 08:17:54 Anemia 361372790 Active 2023 VERNON Morgan [address], [place], [address] , [facility] [employer] [facility] [employer] 4 08:19:25 Right upper quadrant pain 420180271 Active 2023 VERNON Morgan [address] [facility], [address], [address] , [facility] [employer] [facility] [employer] 4 08:42:17 Alopecia 64948537 Active 2023 VERNON Morgan [address] [facility], [address], [address] , [facility] [employer] [facility] [employer] 4 08:44:45 Attention deficit hyperactivity disorder 460946896 Active 2023 VERNON Morgan [address] [facility], [address], [address] , [employer] [facility] [employer] 4 09:23:16 Insomnia 739186897 Active 2023 VERNON Morgan [address] [facility], [address], [address] , [employer] [facility] [employer] 4 09:25:18 Cramp in lower limb 551863850 Active 2023 VERNON Morgan [address], [address] , [employer] [facility] [employer] 4 09:30:36 Problem Notes None recorded. Procedures Surgical History Date Name Laterality Status Provider Name and Address Organization Details Recorded Time 4 Date of Last Pap Smear completed Magdalena Arreguin RN [facility] [employer] [facility] 03/04/2024 08:49:47 4 Most Recent Mammogram completed Magdalena Arreguin RN [facility] [employer] [facility] 03/04/2024 08:49:31 section completed Not Available [facility] 01/07/2023 23:58:58 extraction of wisdom tooth completed Not Available [facility] 01/07/2023 23:58:58 Ablation completed Not Available [facility] 23:58:58 cosmetic surgery completed Not Available [facility] 01/07/2023 23:58:58 Imaging Results None recorded. Procedure Notes None recorded. Medical Equipment None Reported. Allergies No known drug allergies Medications Name Sig Start Date Stop Date Status Note LastModified by Organization Details LastModified Time ketoconazol e 2 % shampoo APPLY TO THE AFFECTED AREA(S), LATHER, LEAVE IN PLACE FOR 5 MINUTES, AND THEN RINSE OFF WITH WATER BY TOPICAL ROUTE ONCE DAILY active Not Available Not Available No t Available trazodone 50 mg tablet TAKE 1 TABLET BY MOUTH EVERY NIGHT 10/04 completed Not Available Not Available Not Available tretinoin 0.025 % topical cream active Not Available Not Available Not Available phentermine 15 mg capsule Take 1 capsule every day by oral route. active Not Available Not Available No t Available topiramate 25 mg tablet TAKE 1 TABLET BY MOUTH TWICE DAILY DIRECTED 06/13 completed Not Available Not Available Not Available phentermine 37.5 mg tablet TAKE 1 TABLET BY MOUTH EVERY DAY 10/21 completed Not Available Not Available Not Available ferrous sulfate 325 mg (65 mg iron) tablet Take 1 tablet every day by oral route as directed for 90 days. 2023 active Not Available Not Available Not Avai lable fluoxetine 10 mg capsule TAKE 1 CAPSULE BY MOUTH EVERY DAY DIRECTED 10/21 completed Not Available Not Available Not Available zolpidem 5 mg tablet Take 1 tablet every day by oral route as needed for 30 days. active Not Available Not Available No t Available ergocalcife rol (vitamin D2) 1,250 mcg (50,000 unit) capsule TAKE 1 CAPSULE BY MOUTH EVERY WEEK DIRECTED active Not Available Not Available No t Available hydroxychlo roquine 200 mg tablet Take 2 tablets every day by oral route. 10/21 completed Not Available Not Available Not Available doxycycline hyclate 20 mg tablet TAKE 1 TABLET BY MOUTH TWICE DAILY 06/13 completed Not Available Not Available Not Available clobetasol 0.05 % scalp solution APPLY THIN LAYER TOPICALLY TO THE AFFECTED AREA TWICE DAILY active Not Available Not Available No t Available fluoxetine 20 mg capsule TAKE 1 CAPSULE BY MOUTH EVERY DAY 01/23 completed Not Available Not Available Not Available sertraline 50 mg tablet Take 1 tablet every day by oral route. 10/15 completed prn- Not Available Not Available Not Available aripiprazol e 10 mg tablet TAKE 1 TABLET BY MOUTH EVERY NIGHT AT BEDTIME 01/23 completed Not Available Not Available Not Available atomoxetine 40 mg capsule Take 1 capsule every day by oral route as directed for 30 days. active Not Available Not Available No t Available aripiprazol e 5 mg tablet TAKE 1 TABLET BY MOUTH EVERY NIGHT AT BEDTIME 10/21 completed Not Available Not Available Not Available Golytely 236 gram-22.74 gram-6.74 gram-5.86 gram oral solution take as directed 06/13 completed Not Available Not Available Not Available Contrave 8 mg-90 mg tablet,exte nded release 2 tab po bid 03/17 completed Not Available Not Available Not Available Ubrelvy 50 mg tablet Take by oral route for 30 days. 06/13 completed Not Available Not Available Not Available Wegovy 2.4 mg/0.75 mL subcutaneou s pen injector Inject 2.4 mg every week by subcutane ous route as directed. 06/13 completed Not Available Not Available Not Available Wegovy 1.7 mg/0.75 mL subcutaneou s pen injector Inject by subcutane ous route for 28 days. 08/25 completed Not Available Not Available Not Available Wegovy 1 mg/0.5 mL subcutaneou s pen injector ADMINISTE R 0.5 ML UNDER THE SKIN EVERY WEEK FOR 56 DAYS 05/15 completed Not Available Not Available Not Available Wegovy 0.25 mg/0.5 mL subcutaneou s pen injector Inject by subcutane ous route for 28 days. 2023 active Not Available Not Available Not Avai lable Wegovy 0.5 mg/0.5 mL subcutaneou s pen injector INJECT 0.5MG UNDER THE SKIN EVERY WEEK FOR 4 WEEKS THEN USE 1MG DOSE 03/17 completed Not Available Not Available Not Available Qulipta 10 mg tablet active Not Available Not Available No t Available Vitals Date Recorded Body height Body mass index (BMI) Body weight Body temperature Heart rate Respiratory rate Oxygen saturation Oxygen saturation in Arterial blood by Pulse oximetry Pain severity - 0-10 verbal numeric rating [Score] - Reported Systolic blood pressure Diastolic blood pressure Provider Name and Address Organization Details Last Updated DateTime 4 160.02 cm 27.5 kg/m2 69286.2 7 g 97.2 [degF] 98 /min 20 /min 98 % 98 % 0 98 mm[Hg] 60 mm[Hg] REID Mitchell [facility] [employer] [facility] 4 08:48:01 Date Recorded Body height Body mass index (BMI) Body weight Body temperature Heart rate Oxygen saturation Oxygen saturation in Arterial blood by Pulse oximetry Respiratory rate Pain severity - 0-10 verbal numeric rating [Score] - Reported Systolic blood pressure Diastolic blood pressure Provider Name and Address Organization Details Last Updated DateTime 4 160.02 cm 25.6 kg/m2 78617.7 g 98.1 [degF] 90 /min 99 % 99 % 20 /min 0 100 mm[Hg] 62 mm[Hg] REID Mitchell [facility] [employer] [facility] 4 14:53:42 Date Recorded Body height Body mass index (BMI) Body weight Body temperature Heart rate Respiratory rate Oxygen saturation Oxygen saturation in Arterial blood by Pulse oximetry Pain severity - 0-10 verbal numeric rating [Score] - Reported Systolic blood pressure Diastolic blood pressure Provider Name and Address Organization Details Last Updated DateTime 4 160.02 cm 26.8 kg/m2 47488.2 5 g 97.4 [degF] 88 /min 20 /min 99 % 99 % 0 116 mm[Hg] 80 mm[Hg] Magdalena Arreguin RN [facility] [employer] [facility] 4 08:38:56 Date Recorded Body height Body mass index (BMI) Body weight Body temperature Heart rate Respiratory rate Oxygen saturation Oxygen saturation in Arterial blood by Pulse oximetry Pain severity - 0-10 verbal numeric rating [Score] - Reported Systolic blood pressure Diastolic blood pressure Provider Name and Address Organization Details Last Updated DateTime 4 160.02 cm 26.3 kg/m2 22971.8 2 g 97.4 [degF] 90 /min 20 /min 99 % 99 % 2 104 mm[Hg] 62 mm[Hg] REID Mitchell [facility] [employer] [facility] 4 09:03:08 Social History Question Answer Notes LastModified by Organizat ion Details LastModified Time Tobacco Smoking Status Never Smoker Not Available [facility] 01/07/2023 23:58:29 Do You Have An Advance Directive? No [id number] Information not available 01/07/2023 What Is Your Level Of Alcohol Consumption? None [id number] Information not available 01/07/2023 Is Blood Transfusion Acceptable In An Emergency? Yes Information not available 01/23/2023 What Is Your Level Of Caffeine Consumption? None MIGRATION.23400 22943 Information not available 01/07/2023 What Is Your Code Status? Full Code Information not available 01/23/2023 In The 14 Days Before Symptom Onset, Have You Had Close Contact With A Laboratory-confi rmed COVID-19 While That Case Was Ill? No MIGRATION.97263 [id number] Information not available 01/07/2023 In The 14 Days Before Symptom Onset, Have You Had Close Contact With A Person Who Is Under Investigation For COVID-19 While That Person Was Ill? No MIGRATION.45971 [id number] Information not available 01/07/2023 Are You Currently Employed? Yes Information not available 01/23/2023 What Type Of Diet Are You Following? REGULAR MIGRATION.38498 88208 Information not available 01/07/2023 What Is The Highest Grade Or Level Of School You Have Completed Or The Highest Degree You Have Received? [id number] MIGRATION.55251 56934 Information not available 01/07/2023 What Is Your Occupation? [employer] Information not available 03/17/2023 How Many Days Of Moderate To Strenuous Exercise, Like A Brisk Walk, Did You Do In The Last 7 Days? 4 Information not available 08/25/2023 On Those Days That You Engage In Moderate To Strenuous Exercise, How Many Minutes, On Average, Do You Exercise? 40 Information not available 08/25/2023 Have There Been Any Changes To Your Family Or Social Situation? No Information not available 06/13/2024 What Is The Fluoride Status Of Your Home? Unknown MIGRATION.[id number] Information not available 01/07/2023 Do You Use Insect Repellent Routinely? No MIGRATION.32277 15183 Information not available 01/07/2023 Where Do You Live? [place]House MIGRATION.80360 01338 Information not available 01/07/2023 Do You Have A Medical Power Of Or Scrub Tech? No MIGRATION.13016 17356 Information not available 01/07/2023 How Many Children Do You Have? 1 Information not available 01/23/2023 Do You Have Any Pets? No MIGRATION.26244 55829 Information not available 01/07/2023 Do You Use Protection During Sex? No Information not available 01/23/2023 What Is Your Relationship Status? MIGRATION.38906 61743 Information not available 01/07/2023 Do You Use Your Seat Belt Or Car Seat Routinely? Yes MIGRATION.56701 90422 Information not available 01/07/2023 Are You Sexually Active? Yes Information not available 01/23/2023 Do You Have Smoke And Carbon Monoxide Detectors In Your Home? Yes MIGRATION.38805 62249 Information not available 01/07/2023 Are You Passively Exposed To Smoke? No MIGRATION.13192 65041 Information not available 01/07/2023 Are There Any Smokers In Your House? No MIGRATION.95419 90432 Information not available 01/07/2023 Do You Participate In Social Media? Yes Information not available 01/23/2023 What Types Of Sporting Activities Do You Participate In? Cardio, Stepper ,weight Lifting Information not available 08/25/2023 Do You Feel Stressed (tense, Restless, Nervous, Or Anxious, Or Unable To Sleep At Night)? [id number] MIGRATION.65391 95326 Information not available 01/07/2023 Do You Use Any Illicit Or Recreational Drugs? No Information not available 01/23/2023 Do You Use Sunscreen Routinely? No MIGRATION.17091 93757 Information not available 01/07/2023 Have You Recently Traveled Abroad? No MIGRATION.11616 89613 Information not available 01/07/2023 Are You Currently In School? No MIGRATION.57985 75014 Information not available 01/07/2023 Do You Have Any Dietary Restrictions? No MIGRATION.86585 94363 Information not available 01/07/2023 Do You Or Have You Ever Used Any Other Forms Of Tobacco Or Nicotine? No Information not available 01/23/2023 Sex: Unknown Functional Status Question Answer Note LastModified by Organization D etails LastModified Time What is your exercise level? Moderate Information not available 01/23/2023 Mental Status None recorded. Family History Relationship Description Onset Age of this Age Resolved Age Notes LastModified by Organization Details LastModified Time Father Family history of malignant neoplasm colon [email or web address] Not available 10/04 08:53:01 Paternal Grandfather Family history of malignant neoplasm [email or web address] Not available 10/04 08:53:01 Paternal Grandmother Family history of malignant neoplasm [email or web address] Not available 10/04 08:53:01 Maternal Grandmother Family history of malignant neoplasm [email or web address] Not available 10/04 08:53:01 Maternal Grandfather Myocardial infarction [id number] Not available 01/07/2023 23:59:00 Medical History Condition Response BLINDNESS N RHEUMATIC FEVER N KIDNEY STONES N BLADDER PROBLEMS N MRSA N OTHER # 1 N POLIO N LUNG DISEASE/DISORDER N HISTORY OF DRUG ABUSE N COPD N RADIATION / CHEMOTHERAPY N Other # 2 N BLOOD DISEASES N SURGERY N EAR OR HEARING PROBLEMS N MUMPS N SHINGLES N BOWEL PROBLEMS N FEMALE PROBLEMS / INFECTIONS N DEPRESSION (INCLUDING POST ) N STROKE/TIA N THYROID DISEASE N ULCERS N BENIGN PROSTATIC HYPERPLASIA N MEASLES N CERVICALGIA N TB SKIN TEST N HYPOTENSION N MYOCARDIAL INFARCTION N OBESITY Y PARAPELGIA N GERD/NAUSEA N ANEURYSM N URINARY/BLADDER/KIDNEY PROBLEMS N CORONARY ARTERY DISEASE (CAD) N MENIERE'S DISEASE N ADDICTION CONCERNS N ENDOMETRIOSIS N USE OF BLOOD THINNERS N SKIN PROBLEMS N EMPHYSEMA N GASTROINTESTINAL DISORDER N MUSCLE,JOINT OR BONE PROBLEMS N GASTROINTESTINAL BLEEDING N BLOOD CLOTS N ASTHMA N CATARACTS N ERECTILE DYSFUNCTION N GI PROBLEMS N CHF N Low Testosterone N NEUROPATHY N INFERTILITY N AIDS/HIV N FRACTURES N CHEMOTHERAPY / RADIATION N VISION/EYE PROBLEMS N LIVER DISEASE N MALE HYPOGONADISM N HYPERTENSION N TOURETTE'S N ANXIETY DISORDER N BLOOD TRANSFUSION N ANEMIA/BLOOD DISORDER N CHRONIC EAR INFECTIONS N BRONCHITIS N TUBERCULOSIS N GLAUCOMA N FOOT PROBLEM N DIVERTICULITIS N CHICKENPOX N SLEEP APNEA N ALLERGIES/HAYFEVER N INFECTIOUS DISEASE N HEART ARRHYTHMIA N PROSTATE N INSOMNIA Y HIGH CHOLESTEROL / HYPERLIPIDEMIA N HYPERTHYROIDISM N EYE PROBLEMS N EATING DISORDER N EDEMA N CHRONIC PAIN SYNDROME N CONSTIPATION N CAROTID BLOCKAGE N BACK / NECK PROBLEMS N HAVE YOU BEEN HOSPITALIZED OR SEEN IN [facility] IN THE PAST YEAR ? N ATHEROSCLEROSIS N BREAST PROBLEMS N DIALYSIS N ECZEMA N FIBROMYALGIA N OSTEOPOROSIS N ARTHRITIS N NO SIGNIFICANT PAST MEDICAL HISTORY N APPENDICITIS N DIABETES, TYPE N BAD TEETH N HEARTBURN / REFLUX N ADD/ADHD N AUTISM SPECTRUM DISORDER (ASD) N HEPATITIS / LIVER DISEASE N PULMONARY DISEASE N GOUT N SLEEP DISORDER N ALZHEIMER'S DISEASE N PAIN N HERPES N DEMENTIA N HEADACHES/MIGRAINES N SEIZURES/EPILEPSY N VASCULAR DISEASE N PACEMAKER N DIZZINESS Y HEART DISEASE/HEART PROBLEMS N KIDNEY DISEASE N DEVELOPMENTAL OR BEHAVIORAL DISORDERS N MULTIPLE SCLEROSIS N SCARLET FEVER N MENTAL DISORDER/ILLNESS N CARDIAC ARRHYTHMIA N CANCER: SPECIFY N PNEUMONIA N ATRIAL FIBRILLATION N Gall Stones N PULMONARY EMBOLISM N AUTOIMMUNE DISEASE N Gynecological History Statement/Question Response Abnormal Pap N Flow Heavy Date of LMP 08/03/2024 STIs/STDs N Dislike of Light during Menstrual Headac he Y Do your menstrual headaches get severe Y Duration of Flow (days) 10 Most Recent Mammogram 01/08/2024 Age at Menarche 14 Breast Problems no How many live births 3 Date of Last Colonoscopy Frequency of Cycle (Q days) Most Recent Bone Density Sexually Active? Y Do you get headaches during your period Y Menses Monthly N Date of Last Pap Smear 02/08/2024 Discharge no Obstetrics History GPAL:G 3 P 3 0 0 0 Type Value Full Term 3 Total 3 Immunizations Vaccine Type Date Status Note Provider Nam e and Address Organization Details Recorded Time Influenza, split virus, quadrivalent, PF 08/25/2023 completed REID Mitchell, [facility] [employer] 08/25/2023 11:32:21 Influenza, split virus, trivalent, PF 10/05/2024 completed Magdalena Arreguin RN null, [facility] [employer] [facility] 10/05/2024 09:31:35 Past Encounters Encounter ID Performer Location Encounter Start Date Encounter Closed Date Diagnosis/Indication Diagnosis SNOMED-CT Code Diagnosis ICD10 Code Diagnosis Note [id number] [address] [address] 09/12/2021 00:00:00 09/12/2021 16:17:[id number] [address] 10/15/2021 00:00:00 10/15/2021 12:23:48 [id number] [facility] [address] [place] [address] 11/13/2021 00:00:00 11/13/2021 16:45:31 [id number] [facility] [address] [place] [address] 04/15/2022 00:00:00 04/15/2022 18:14:56 [id number] [facility] [address] [place] [address] 06/11/2022 00:00:00 06/11/2022 16:45:37 [id number] [facility] [address] [place] [address] 10/21/2022 00:00:00 10/21/2022 18:04:32 [id number] [facility] [address] [facility] [place] [address] 10/30/2022 00:00:00 10/30/2022 16:43:14 [id number] Magdalena Quintero NP [facility] [address] [facility] [place] [address] 01/23/2023 08:56:16 01/23/2023 09:36:16 Mixed anxiety and depressive disorder 433278779 F41.8 Trazodone nightly working. Obese 875009525 E66.9 Failed phentermin e, contrave, orlistat ( overseas), Qsymia, topiramate . Patient believes she has tried all steps to get through what is needed for approval of wegovy. [id number] Magdalena Quintero NP [facility] [address] [facility] [place] [address] 03/17/2023 17:42:15 03/18/2023 08:58:46 Obese 721467254 E66.9 Failed phentermin e, contrave, orlistat ( overseas), Qsymia, topiramate . Patient believes she has tried all steps to get through what is needed for approval of wegovy. 03/17/23 Wegovy 1 mg for 4 weeks and then to 1.7 mg weekly. [id number] Magdalena Quintero NP [address] [address] 05/15/2023 10:59:50 05/15/2023 11:52:55 Obese 206002056 E66.9 Failed phentermin e, contrave, orlistat ( overseas), Qsymia, topiramate . Patient believes she has tried all steps to get through what is needed for approval of wegovy. 03/17/23 Wegovy 1 mg for 4 weeks and then to 1.7 mg weekly. Insomnia 359211520 G47.0 0 Trazodone prn sleep. [id number] Magdalena Quintero NP [place] [address] 08/25/2023 10:46:38 08/25/2023 11:33:18 Insomnia 913640493 G47.00 Trazodone prn sleep. Obese 644676391 E66.9 Failed phentermin e, contrave, orlistat ( overseas), Qsymia, topiramate . Patient believes she has tried all steps to get through what is needed for approval of wegovy. 03/17/23 Wegovy 1 mg for 4 weeks and then to 1.7 mg weekly. wegovy 2.4 mg weekly. Down another 20 lbs today. Increased belching 88798 005 R14.2 sulfur odor- take famotidine or prilosec otc prn. Change diet to remove garlic. Administra tion of influenza vaccine [id number] Z23 Flu shot given 08/25/23 [id number] Mark Burdick MD [address] [address] 08/31/2023 12:26:13 08/31/2023 14:47:21 [id number] Mark Burdick MD [address] [address] 11/23/2023 16:44:19 11/23/2023 17:21:55 Chronic insomnia 169373381 F51.04 Obese 881465556 E66.9 Overweight 717692863 E66 .3 History of obesity 72217 3001 Z91.89 [id number] Mark Burdick MD [address] [address] 12/24/2023 08:59:31 12/24/2023 09:26:01 Adult health examination 475082708 Z00.00 Overweight 937559154 E66 .3 History of obesity 61654 3001 Z91.89 Screening for disorder 106132735 Z13.9 [id number] VERNON Morgan [address] [address] 03/04/2024 08:30:51 03/04/2024 09:27:33 Fatigue 35752338 R53.83 Migraine with aura 48277 06 G43.109 Obese 029408321 E66.9 [id number] Annmarie Montes De Oca [employer]ESS [employer] [address] [address] 06/13/2024 14:38:31 06/13/2024 15:36:56 Iron deficiency anemia 35303998 D50.9 Migraine with aura 20492 06 G43.109 Patient has failed amitripyli ne and topiramate . Unable to take propranolo l due to BP Fatigue 66962848 R53.83 [id number] VERNON Morgan [address] [address] 06/20/2024 08:56:20 06/20/2024 11:16:06 [id number] VERNON Morgan [address] [address] 08/18/2024 08:32:19 08/18/2024 08:54:06 Right upper quadrant pain 731377793 R10.11 Overweight 038563402 E66 .3 Alopecia 60714607 L65.9 [id number] VERNON Morgan [facility] [address] [place] [address] 10/04/2024 08:52:29 10/04/2024 09:33:35 Attention deficit hyperactivity disorder 654828597 F90.9 Insomnia 600476072 F51.0 1 Administra tion of influenza vaccine 40452401 Z23 Cramp in lower limb 4499 78346 R25.2 Advised to add OTC Magnesium Health Concerns Section Related Observation LastModified by Organization Detai ls LastModified Time None Recorded Concern Status LastModified by Organization Details LastModified Time None Recorded Advance Directives Directive N: Payers Encounter Date Sequence Insurance Name Policy Number Policy Saab Covered Member ID Saab Member ID Guarantor Name 03/04/2024 1 EAST - DOS PRIOR TO 2024 - [employer] () Antwan Kline [id number] Chioma Kline 06/13/2024 1 EAST - DOS PRIOR TO 2024 - [employer] () Antwan Kline [id number] Chioma Kline 06/20/2024 1 EAST - DOS PRIOR TO 2024 - [employer]NA () Antwan Kline [id number] Chioma Kline 08/18/2024 1 EAST - DOS PRIOR TO 2024 - [employer] () Antwan Kline [id number] Chioma Green 10/04/2024 1 EAST - DOS PRIOR TO 2024 - [employer] () Antwan Kline [id number] Chioma Kline Notes Date Note Type Note Provider Name and Address Organization Details Recorded Time 03/04/2024 text/html Chioma Kline is a 43 year old patient here for generalized malaise. She states that she is fatigued and having headaches. She is having headaches at least three times a week. She previously took rizatriptan which minimally helps the headache and causes side effects.The headaches are causing photophobia. She has to call out of work, lay in her dark closet, and sleep them off.She is interested in starting a daily prophylactic. She previously tried topamax and amitriptyline. VERNON Morgan [address], [place], [address], [employer] [facility] [employer] [facility] 03/04/2024 09:17:12 06/13/2024 text/html Chioma Kline is a 44 year old Dizziness, fatigue, eating 10 pounds of ice weekly. 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 VERNON Morgan [address], [place], [address], [employer] [facility] [employer] 06/13/2024 15:36:46 08/18/2024 text/html Chioma Kline is a 44 year old female patient here today for stomach concerns She notes that after she eats, she will have RUQ stabbing stomach pains, cramping, and bloating. States this will subside when she fasts but comes back as soon as she eats. She would like to restart Wegovy She has alopecia, previously managed by derm. Industrial Services Worker she was seeing is no longer seeing her, she has asked that I take over her ketoconazole shampoo. 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 Adult Self-Audit ADHD score rating 6, consistent with adult ADHD. Advised we can trial non-controlled substance, will have to see psych for controlled. She has concerns with insomnia, states her trazodone is not effective anymore. Concerns with muscle cramps VERNON Morgan [address], [place], [address], [employer] [facility] 10/04/2024 09:32:07 OBGyn Episode No OBEpisode recorded.
--- OUTSIDE RECORDS SUMMARY | 2024-12-09 12:24 | XMS_ITS | Clinical Summary ---
Author Organization [facility] Address [address] [place] [address] Care Team Providers Care Glacing Machine Tender Name Role Phone Mark Burdick MD Primary Care Provider [phone] Allergies No known active allergies Medications traZODone (DESYREL) 50 mg tablet Take 50 mg by mouth 2 times daily. 09/16/2021 Active cholecalciferol 1,250 mcg (50,000 unit) Capsule Take 50,000 Units by mouth every 7 days. Active ferrous fumarate (FERRETTS) 325 mg (106 mg iron) Tablet Take 325 mg by mouth daily. Active Active Problems No known active problems Encounters Date Type Department Care Team Description 12/01/2024 External Device Data [facility] ABSTRACTION Provider, Abstract 11/22/2024 External Device Data [facility] ABSTRACTION Provider, Abstract 09/12/2024 External Device Data [facility]STRACTION Provider, Abstract from Last 3 Months Family History Medical History Relation Name Comments No Known Problems Brother 1 No Known Problems Child 1 No Known Problems Child 2 No Known Problems Child 3 Colon Cancer Father No Known Problems Mother No Known Problems Sister 1 No Known Problems Sister 2 Relation Name Status Comments Brother 1 Alive Brother 2 Alive Child 1 Alive Child 2 Alive Child 3 Alive Father Mother Alive Sister 1 Alive Sister 2 Alive Social History Tobacco Use Types Packs/Day Years Used Date Smoking Tobacco: Never Tobacco Cessation:Counseling Given: Not Answered Alcohol Use Standard Drinks/Week Comments Not Currently 0 (1 standard drink = 0.6 oz pur e alcohol) Comments Unknown Sex and Gender Information Value Date Recorded Sex Assigned at Not on file Legal Sex Female 10:51 AM CDT Gender Identity Not on file Sexual Orientation Not on file Last Filed Vital Signs Vital Sign Reading Time Taken Comments Blood Pressure 129/87 06/21/2024 10:56 AM CDT Pulse 64 06/21/2024 10:56 AM CDT Temperature 36.7 ??C (98 ??F) 06/21/2024 10:56 AM CDT Respiratory Rate 16 06/21/2024 10:56 AM CDT Oxygen Saturation 93% 06/21/2024 10:56 AM CDT Inhaled Oxygen Concentration - - Weight 67.1 kg (148 lb) 06/21/2024 10:56 AM CDT Height 160 cm (5' 3 ) 06/21/2024 10:56 AM CDT Body Mass Index 26.22 06/21/2024 10:56 AM CDT Plan of Treatment Upcoming Encounters Date Type Department Care Team (Late st Contact Info) Description 12/09/2024 12:30 PM DRIVER LICENSE TECHNICIAN Office Visit [facility] Oncology and Hematology [facility] [address] [facility] [place] [address] Alex Locke MD [address] [facility] [address] [place] [address] Health Maintenance Due Date Last Done Comments Pre-Diabetes and Diabetes Screening 1980 HEPATITIS B VACCINES (1 of 3 - 19+ 3-dose series) 2001 CERVICAL CANCER SCREENING 02/09/2022 02/09/2019 BREAST CANCER SCREENING 2022 INFLUENZA VACCINE (#1) 2024 3, 08/24/2020, 08/10/2019, Additional history exists COVID-19 Vaccine ( season) 2024 2021, 03/22/2021 DTAP/TDAP/TD VACCINES (2 - Td or Tdap) 10/14/2028 10/14/2018 HPV VACCINES Aged Out No longer eligi ble based on patient's age to complete this topic Procedures Procedure Name Priority Date/Time Associated Diagnosis Comments VITAMIN B12 AND FOLATE Routine 8:22 AM DRIVER LICENSE TECHNICIAN Chronic anemia RETICULOCYTES Routine 12/06/2024 8:22 AM DRIVER LICENSE TECHNICIAN Chronic anemia LACTATE DEHYDROGENASE Routine 12/06/2024 8:22 AM DRIVER LICENSE TECHNICIAN Chronic anemia IRON, TIBC, AND PERCENT SATURATION Routine 12/06/2024 8:22 AM DRIVER LICENSE TECHNICIAN Chronic anemia FERRITIN Routine 12/06/2024 8:22 AM DRIVER LICENSE TECHNICIAN Chronic anemia from Last 3 Months Results * VITAMIN B12 AND FOLATE (12/06/2024 8:22 AM DRIVER LICENSE TECHNICIAN) [facility] VITAMIN B12 485 200 - 1100 pg/mL [facility] FOLATE, SERUM 13.9 ng/mL [facility] Comment: ? Reference Range ? Low: ? <3.4 ? Borderline: ?3.4-5.4 ? Normal: ?>5.4 Test Performed at: [address] ??[phone] Katelynn Tan MD Blood 12/06/2024 8:22 AM DRIVER LICENSE TECHNICIAN 12/06/2024 8:22 AM DRIVER LICENSE TECHNICIAN us Alex Locke MD CHEMISTRY ORDERABLES Final Resu lt [facility] [phone] [address] * (ABNORMAL) IRON, TIBC, AND PERCENT SATURATION (12/06/2024 8:22 AM DRIVER LICENSE TECHNICIAN) IRON <10(L) 40 - 190 mcg/dL [facility] Comment: Verified by repeat analysis. TIBC 456(H) 250 - 450 mcg/dL (calc) [facility] IRON % SATURATION 1.10(L) 16 - 45 % (calc) [facility] Comment: Test Performed at: [facility] [address] [place] [address] ??[phone] Katelynn Tan MD Blood 12/06/2024 8:22 AM DRIVER LICENSE TECHNICIAN 12/06/2024 8:22 AM DRIVER LICENSE TECHNICIAN us Alex Locke MD CHEMISTRY ORDERABLES Final Resu lt Performing Organization Address [facility]/ZIP Co de Phone Number [facility] [phone] [facility] [address] [place] [phone] * RETICULOCYTES (12/06/2024 8:22 AM DRIVER LICENSE TECHNICIAN) RETICULOCYTES 1.1 % [facility] RETICULOCYTE, ABSOLUTE 26,400 20,000 - 80,000 cells/uL [facility] Comment: Test Performed at: [facility] ??[id number] Katelynn Tan MD Blood 12/06/2024 8:22 AM DRIVER LICENSE TECHNICIAN 12/06/2024 8:22 AM DRIVER LICENSE TECHNICIAN us Alex Locke MD HEMATOLOGY ORDERABLES Final Res ult Performing Organization Address City/[facility]/ZIP Co de Phone Number [facility] [phone] [facility] [address] [place] [phone] * LACTATE DEHYDROGENASE (12/06/2024 8:22 AM DRIVER LICENSE TECHNICIAN) LD (LACTATE DEHYDROGENASE) 125 100 - 200 U/L [facility] Comment: Test Performed at: [facility] [address] [place] [address] ??[phone] Katelynn Tan MD Blood 12/06/2024 8:22 AM DRIVER LICENSE TECHNICIAN 12/06/2024 8:22 AM DRIVER LICENSE TECHNICIAN Alex Locke MD CHEMISTRY ORDERABLES Final Resu lt [facility] [phone] [facility] [address] [place] [phone] * (ABNORMAL) FERRITIN (12/06/2024 8:22 AM DRIVER LICENSE TECHNICIAN) FERRITIN 1(L) 16 - 232 ng/mL [facility] Comment: Test Performed at: [facility] ??[id number] Katelynn Tan MD Blood 12/06/2024 8:22 AM DRIVER LICENSE TECHNICIAN 12/06/2024 8:22 AM DRIVER LICENSE TECHNICIAN Alex Locke MD CHEMISTRY ORDERABLES Final Resu lt Performing Organization Address City/[facility]/ZIP Co de Phone Number [facility] [phone] [facility] [phone] from Last 3 Months Insurance [facility] Care Teams Glacing Machine Tender Relationship Specialty Start Date End Date Burdick, Mark, MD [address] [place] [address] PCP - General Family Practice 06/21/24
[2024-12-09 12:32] LABS: Mean Corpuscular HGB Conc 27.2 g/dl (32-36); Mean Corpuscular Hemoglobin 19.4 pg (26-34); Mean Corpuscular Volume 71.4 fl (80-100); Mean Platelet Volume 9.5 fl (7.4-10.4); Platelet Count Result 526 k/mm3 (150-375); Red Blood Count 2.52 M/mm3 (4.2-5.4); Red Cell Distribution Width 17.5 % (11.5-14.5); White Blood Count 6.4 K/mm3 (4.5-10.0)
[2024-12-09 12:34] LABS: Hemoglobin 4.9 g/dL (12.0-15.0)
== END 2024-12-09 12:20 | disposition home or self-care (01) ==
LOC: ANHLAB 12:21
PROVIDERS: Visit Provider Internal Medicine Hematology & Oncology
DX: D64.9 Anemia, unspecified (principal)
CPT/HCPCS: 36415; 85027

== ENCOUNTER 2024-12-09 13:53 | Observation (INO) | payer OTHER, SELFPAY ==
--- OUTSIDE RECORDS SUMMARY | 2024-12-09 14:01 | XMS_ITS | Encounter Summary ---
Author Organization [facility] Address [address] [place] [address] Care Team Providers Care Arch Support Technician Name Role Phone Mark Burdick MD Primary Care Provider [phone] Reason for Visit * Reason Comments Follow Up Encounter Details Date Type Department Care Team (Late st Contact Info) Description 12/09/2024 12:30 PM FEDERAL APPELLATE CLERK Office Visit [facility] Oncology and Hematology - [place] [address] [place] [address] [facility] [address] [place] [address] Alex Locke MD [address] [facility] [address] [place] [address] Chronic anemia (Primary Dx) Social History Tobacco Use Types Packs/Day Years [...] on file Sexual Orientation Not on file documented as of this encounter Last Filed Vital Signs Vital Sign Reading Time Taken Comments Blood Pressure 117/80 12/09/2024 12:36 PM FEDERAL APPELLATE CLERK Pulse 96 12/09/2024 12:36 PM FEDERAL APPELLATE CLERK Temperature 36.6 ??C (97.8 ??F) 12/09/2024 12:[address] Respiratory Rate 16 12/09/2024 12:36 PM FEDERAL APPELLATE CLERK Oxygen Saturation 94% 12/09/2024 12:36 PM FEDERAL APPELLATE CLERK Inhaled Oxygen Concentration - - Weight 73.6 kg (162 lb 3.2 oz) 12/09/2024 12:36 PM FEDERAL APPELLATE CLERK Height - - Body Mass Index 28.73 06/21/2024 10:56 AM CDT documented in this encounter Progress Notes * Alex Locke MD - 12/09/2024 12:39 PM CST HEMATOLOGY / ONCOLOGY PROGRESS NOTE Patient Identification: Name: Chioma Kline Age: 44 y.o. Sex: female : 1980 DIAGNOSIS Iron deficiency anemia CURRENT TREATMENT Iron twice a day with vitamin C TREATMENT HISTORY Iron infusion July 17, 2024 EGD October 21, 2024 came back normal Colonoscopy July 2024 came back normal SUBJECTIVE Patient came into the office for follow-up visit after the iron infusion. She is extremely tired and exhausted. She denies any melena hematochezia but does have her menstrual bleeding which she believes is not heavy. Complain of shortness of breath. No other new complaint. Review of system Constitutional: Patient did not mention fevers, sweats, complain of tiredness and fatigue and shortness of breath HEENT: Patient did not mention sinus congestion, hearing or vision problems Respiratory: Patient did not mention cough, dyspnea, wheeze Cardiovascular: Patient did not mention chest pain, exertional chest pressure/discomfort, nausea, syncope, complain of shortness of breath GI: Patient did not mention constipation, diarrhea, dsyphagia, reflux symptoms, vomiting, melena : Patient did not mention dysuria, frequency, incontinence, urgency Integumentary system: no lymphadenopathy, sweats, flushing Musculoskeletal: Patient not mention: myalgia, arthralgia Neurological: Patient did not mention blurry or disturbed vision, numbness/weakness, dizziness Skin: No lumps, bumps or rashes. 12 point review of system was reviewed Objective: Vital signs in last 24 hours: As per nursing note Exam: HEENT: Atraumatic, external ears normal, nose normal, oropharynx moist, no pharyngeal exudates. no sinus tenderness Neck- normal range of motion, no tenderness, supple Respiratory: No respiratory distress, normal breath sounds, no rales, no wheezing Cardiovascular: Normal rate, normal rhythm, no murmurs, no gallops, no rubs GI: Soft, nondistended, normal bowel sounds, nontender, no splenomegaly, no hepatomegaly, no mass, no rebound, no guarding : No costovertebral angle tenderness Musculoskeletal: No edema, no tenderness, no deformities. Back- no tenderness Integument: Well hydrated, no rash, Digits and nails inspection normal Lymphatic: No lymphadenopathy noted Neurologic: Alert & oriented x 3, CN 2-12 normal, normal motor function, normal sensory function, no focal deficits noted Exam as above PATH LABS Labs from June 21 showed creatinine 0.7 B12 541 iron 31 saturation 7 ferritin 7 hemoglobin 9.4 MCV 75.8 Labs from December 09 showed hemoglobin 4.9 hematocrit 18 ferritin 1 LDH 125 vitamin B12 485 iron less than 10 saturation 1.1 Assessment: Plan: There are no active problems to display for this patient. Iron deficiency anemia. Patient received iron infusion in July 2024. EGD and colonoscopy done in 2023 came back normal. Most likely her significant iron deficiency anemia is due to female bleeding. I will admit her to the hospital today for blood transfusion and gynecology evaluation. She will receive IV iron infusionin the hospital as well. She will continue oral iron twice a day with vitamin C. Follow-up with me after discharge from the hospital. 12/09/2024 Alex Locke MD RAL APPELLATE CLERK documented in this encounter Plan of Treatment Upcoming Encounters Date Type Department Care Team (Late st Contact Info) Description 01/09/2025 11:00 AM FEDERAL APPELLATE CLERK Office Visit [facility] Oncology and Hematology - [place] [address] [facility] [address] [place] [address] Alex Locke MD [address] [facility] [address] [place] [address] Scheduled Orders Name Type Priority Associated Diagnoses Orde r Schedule CBC WITHOUT DIFFERENTIAL Lab Stat Chronic anemia Expected: 01/06/2025, Expires: 12/09/2025 FERRITIN Lab Routine Chronic anemia Expected: 01/06/2025, Expires: 12/09/2025 IRON, TIBC, AND PERCENT SATURATION Lab Routine Chronic anemia Expected: 01/06/2025, Expires: 12/09/2025 documented as of this encounter Visit Diagnoses Diagnosis Chronic anemia- Primary Anemia, unspecified documented in this encounter Care Teams Arch Support Technician Relationship Specialty Start Date End Date Mark Burdick MD [address] [place] [address] PCP - General Family Practice 06/21/24 documented as of this encounter
[2024-12-09 14:28] VITALS: BP 135/75; PULSE 110; RESP 20; TEMP 36.6; O2SAT 100
--- NOTE | 2024-12-09 15:27 | ED.RECABL ---
HPI - Recheck/Abnormal Lab/Rx General Chief Complaint: Recheck/Abnormal Lab/Rx <Meri Shelton PA-C - Last Filed: 12/10/24 15:24> Stated Complaint: low hgb 4.7 <Meri Shelton PA-C - Last Filed: 12/10/24 15:24> Time Seen by Provider: 12/09/24 15:27 <Meri Shelton PA-C - Last Filed: 12/10/24 15:24> Focused HPI: This is a 44-year-old female that presents to the emergency department for low hemoglobin. Reports hemoglobin of 4.9 on outpatient blood work today. Her mattress finisher is Dr. Locke. GENERAL: Well-appearing, well-nourished, and in no acute distress. HEAD: Normocephalic, atraumatic. CHEST: Clear to auscultation. ?No respiratory distress. HEART: Regular rate and rhythm.? NEURO: ?Alert and oriented x3. Patient screened in triage and initial orders placed.? ?Additional care and disposition to be based upon?diagnostic testing and treatment. <Meri Shelton PA-C - Last Filed: 12/10/24 15:24> History of Present Illness HPI narrative: Agree with HPI. Routine follow-up today that showed low hemoglobin. She has been having exertional shortness of breath and dizziness with going from sitting to standing. Has been compliant with oral and IV iron therapy. Recently completed her menstrual cycle 2 days ago. Did not have heavy bleeding or clotting. No syncope. No dark black stools or blood in stool. <James Choudhury MD - Last Filed: 12/09/24 23:27> Related Data Home Medications: Home Medications ?Medication ?Instructions ?Recorded ?Confirmed ?Last Taken ?Type atogepant 30 mg tablet (Qulipta) 30 mg PO DAILY PRN MIGRAINES 07/07/24 12/10/24 10/10/24 History ergocalciferol (vitamin D2) 1,250 50,000 unit PO WEEKLY 07/07/24 12/10/24 12/06/24 History mcg (50,000 unit) capsule atomoxetine 40 mg PO DAILY 10/12/24 12/10/24 12/09/24 History zolpidem 5 mg PO HS 10/12/24 12/10/24 12/09/24 History <Meri Shelton PA-C - Last Filed: 12/10/24 15:24> Allergies/Adverse Reactions: Allergies Allergy/AdvReac Type Severity Reaction Status Date / Time No Known Allergies Allergy Verified 12/09/24 13:54 <Meri Shelton PA-C - Last Filed: 12/10/24 15:24> Review of Systems Review of Systems: All systems reviewed & are unremarkable except as noted in HPI and below <James Choudhury MD - Last Filed: 12/09/24 23:27> Constitutional: Constitutional: Denies chills, Reports fatigue and Denies fever(s) <James Choudhury MD - Last Filed: 12/09/24 23:27> Cardiovascular: Cardiovascular: Reports no additional cardiovascular complaints <James Choudhury MD - Last Filed: 12/09/24 23:27> Respiratory: Respiratory: Reports no additional respiratory complaints <James Choudhury MD - Last Filed: 12/09/24 23:27> Gastrointestinal: Gastrointestinal: Reports no additional gastrointestinal complaints <James Choudhury MD - Last Filed: 12/09/24 23:27> Neurologic: Reports system reviewed and no additional complaints, except as documented <James Choudhury MD - Last Filed: 12/09/24 23:27> FOR[facility]LY [facility], [facility] Past Medical History Medical History: Medical History Depression with anxiety Family history of colon cancer in father Migraine Anemia, hemolytic, G6PD deficiency <Meri Shelton PA-C - Last Filed: 12/10/24 15:24> Surgical History Surgical History: Surgical History History of endometrial ablation History of breast lift History of abdominoplasty History of bilateral tubal ligation with 3rd History of x3 <Meri Shelton PA-C - Last Filed: 12/10/24 15:24> Family History Family History: Family History Sibling G6PD deficiency <Meri Shelton PA-C - Last Filed: 12/10/24 15:24> Social History Social History: Social History Social History: Smoking status: Never smoker Second hand tobacco smoke exposure: No Alcohol intake: never Substance use: never Substance use type: does not use Do You Feel Safe in your Home?: Yes Lack of Transportation: No Lack of Food: Never True Current Housing: I Have Housing Concerned About Future Housing: No Difficulty Paying Gas/Electric Bills: No Difficulty Paying for Meds: No Currently Unemployed: No Education: Bachelor's Degree Difficulty w/ Childcare or Family Care: No Living arrangements: with family Spiritual care concerns: No <Meri Shelton PA-C - Last Filed: 12/10/24 15:24> Exam Narrative: GENERAL: Well-appearing, well-nourished, and in no acute distress. HEAD: Normocephalic, atraumatic. ENT: Mucous membranes moist. CHEST: Clear to auscultation. No respiratory distress. HEART: Regular rate and rhythm. Normal peripheral pulses. ABDOMEN: Soft, nontender, nondistended. EXTREMITIES: Normal range of motion. No edema. SKIN: Warm, dry, no rash. NEURO: Alert and oriented x3. PSYCH: Normal mood and affect. <James Choudhury MD - Last Filed: 12/09/24 23:27> Course Course Emergency Course: Resting comfortably. Admit to hospitalist service. Blood transfusion ordered. <James Choudhury MD - Last Filed: 12/09/24 23:27> Vital Signs Vital signs: Vital Signs Temperature 97.9 F 12/09/24 14:28 Pulse Rate 110 H 12/09/24 14:28 Respiratory Rate 20 12/09/24 14:28 Blood Pressure 135/75 12/09/24 14:28 Pulse Oximetry 100 12/09/24 14:28 Oxygen Delivery Room Air 12/09/24 14:28 Temperature 98.3 F 12/10/24 14:00 Pulse Rate 84 12/10/24 14:00 Respiratory Rate 18 12/10/24 14:00 Blood Pressure 116/78 12/10/24 14:00 Pulse Oximetry 96 12/10/24 14:00 Oxygen Delivery Room Air 12/09/24 14:28 <Meri Shelton PA-C - Last Filed: 12/10/24 15:24> Vital Signs Temperature 97.9 F 12/09/24 14:28 Pulse Rate 110 H 12/09/24 14:28 Respiratory Rate 20 12/09/24 14:28 Blood Pressure 135/75 12/09/24 14:28 Pulse Oximetry 100 12/09/24 14:28 Oxygen Delivery Room Air 12/09/24 14:28 Temperature 98.3 F 12/10/24 14:00 Pulse Rate 84 12/10/24 14:00 Respiratory Rate 18 12/10/24 14:00 Blood Pressure 116/78 12/10/24 14:00 Pulse Oximetry 96 12/10/24 14:00 Oxygen Delivery Room Air 12/09/24 14:28 <James Choudhury MD - Last Filed: 12/09/24 23:27> MDM - Recheck/Abnormal Lab/Rx Lab Data Result diagrams: 12/10/24 13:52 12/09/24 17:53 <Meri Shelton PA-C - Last Filed: 12/10/24 15:24> Labs: Lab Results 12/09/24 Range/Units 17:53 Sodium 139 (137-145) mmol/L Potassium 3.7 (3.4-5.0) mmol/L Chloride 105 (98-107) mmol/L Carbon Dioxide 23 (22-30) mmol/L Anion Gap 11 (4-12) mmol/L BUN 11 (7-17) mg/dL Creatinine 0.59 L (0.7-1.0) mg/dL Estim Creat Clear Calc 101 ml/min Estimated GFR > 60 (59 - ) Glucose 100 (65-110) mg/dL Calcium 8.8 (8.4-10.2) mg/dL Total Bilirubin 0.4 (0.2-1.3) mg/dL AST 27 (14-36) U/L ALT 19 (6-35) U/L Alkaline Phosphatase 86 (38-126) U/L Total Protein 8.0 (6.3-8.2) g/dL Albumin 4.1 (3.5-5.1) g/dL Blood Type A Positive Antibody Screen Negative Crossmatch See Detail <Meri Shelton PA-C - Last Filed: 12/10/24 15:24> Lab Results 12/09/24 Range/Units 17:53 Sodium 139 (137-145) mmol/L Potassium 3.7 (3.4-5.0) mmol/L Chloride 105 (98-107) mmol/L Carbon Dioxide 23 (22-30) mmol/L Anion Gap 11 (4-12) mmol/L BUN 11 (7-17) mg/dL Creatinine 0.59 L (0.7-1.0) mg/dL Estim Creat Clear Calc 101 ml/min Estimated GFR > 60 (59 - ) Glucose 100 (65-110) mg/dL Calcium 8.8 (8.4-10.2) mg/dL Total Bilirubin 0.4 (0.2-1.3) mg/dL AST 27 (14-36) U/L ALT 19 (6-35) U/L Alkaline Phosphatase 86 (38-126) U/L Total Protein 8.0 (6.3-8.2) g/dL Albumin 4.1 (3.5-5.1) g/dL Blood Type A Positive Antibody Screen Negative Crossmatch See Detail <James Choudhury MD - Last Filed: 12/09/24 23:27> Critical Care Time Critical Care Time Critical Care Time: No <Meri Shelton PA-C - Last Filed: 12/10/24 15:24> Discharge Plan Discharge Clinical Impression: Anemia Qualifiers: Anemia type: unspecified type Qualified Code(s): D64.9 - Anemia, unspecified <Meri Shelton PA-C - Last Filed: 12/10/24 15:24> Patient Disposition: Still a Patient <KOBE Anna Last Filed: 12/10/24 15:24> Condition: Stable <Meri Shelton PA-C - Last Filed: 12/10/24 15:24>
[2024-12-09 18:25] LABS: Alanine Aminotransferase 19 U/L (6-35); Alkaline Phosphatase 86 U/L (38-126); Aspartate Amino Transferase 27 U/L (14-36); Blood Urea Nitrogen 11 mg/dL (7-17); Calcium 8.8 mg/dL (8.4-10.2); Chloride 105 mmol/L (98-107); Estimated CRCL calculation 101 ml/min; Estimated Glomerular Filt Rate > 60
[2024-12-09 18:26] LABS: Bilirubin,Total 0.4 mg/dL (0.2-1.3); Glucose 100 mg/dL (65-110); Potassium 3.7 mmol/L (3.4-5.0); Sodium 139 mmol/L (137-145)
[2024-12-09 18:38] LABS: Albumin Level 4.1 g/dL (3.5-5.1)
[2024-12-09 18:51] LABS: Anion Gap 11 mmol/L (4-12); Carbon Dioxide 23 mmol/L (22-30)
[2024-12-09 21:02] VITALS: BP 123/77; PULSE 99; RESP 18; TEMP 36.8; O2SAT 100
--- OUTSIDE RECORDS SUMMARY | 2024-12-09 21:11 | XMS_ITS | Encounter Summary ---
Author Organization [facility] Address [address] [place] [address] Care Team Providers Care Temperature Regulator Pyrometer Name Role Phone Mark Burdick MD Primary Care Provider [phone] Reason for Visit * Reason Comments Follow Up Encounter Details Date Type Department Care Team (Late st Contact Info) Description 12/09/2024 12:30 PM FIELD MARKETING LEAD Office Visit [facility] Oncology and Hematology - [place] [address] [place] [address] [facility] [address] [place] [address] Alex Locke MD [address] [facility] [address] [place] [address] Chronic anemia (Primary Dx) Social [...] Comments Blood Pressure 117/80 12/09/2024 12:36 PM FIELD MARKETING LEAD Pulse 96 12/09/2024 12:36 PM FIELD MARKETING LEAD Temperature 36.6 ??C (97.8 ??F) 12/09/2024 12:[address] Respiratory Rate 16 12/09/2024 12:36 PM FIELD MARKETING LEAD Oxygen Saturation 94% 12/09/2024 12:36 PM FIELD MARKETING LEAD Inhaled Oxygen Concentration - - Weight 73.6 kg (162 lb 3.2 oz) 12/09/2024 12:36 PM FIELD MARKETING LEAD Height - - Body Mass Index 28.73 [...] from the hospital. 12/09/2024 Alex Locke MD D MARKETING LEAD documented in this encounter Plan of Treatment Upcoming Encounters Date Type Department Care Team (Late st Contact Info) Description 01/09/2025 11:00 AM FIELD MARKETING LEAD Office Visit [facility] Oncology and Hematology - [place] [address] [facility] [address] [place] [address] Alex Locke MD [address] [facility] [address] [place] [address] Scheduled Orders Name Type Priority [...] unspecified documented in this encounter Care Teams Temperature Regulator Pyrometer Relationship Specialty Start Date End Date Mark Burdick MD [address] [place] [address] PCP - General Family Practice 06/21/24 documented as of this encounter
--- OUTSIDE RECORDS SUMMARY | 2024-12-09 21:11 | XMS_ITS | Encounter Summary ---
Author Organization [facility] Address [address] [facility] Attn: [place] [address] Care Team Providers Care Computer Science Teacher Name Role Phone Mark Burdick MD Primary Care Provider [phone] Encounter Details Date Type Department Care Team (Late st Contact Info) Description 12/08/2024 Orders Only Initial Department [address] [facility] [address] GOMEZN: [place] [address] Provider, Historical Social History Tobacco Use Types Packs/Day Years Used Date Smoking Tobacco: Never Alcohol Use Standard Drinks/Week Comments Not Currently 0 (1 standard drink = 0.6 oz pur e alcohol) Comments Unknown Sex and Gender Information Value Date Recorded Sex Assigned at Not on file Legal Sex Female 10:51 AM CDT Gender Identity Not on file Sexual Orientation Not on file documented as of this encounter Plan of Treatment Upcoming Encounters Date Type Department Care Team (Late st Contact Info) Description 01/09/2025 11:00 AM WAREHOUSE DELIVERY MANAGER Office Visit [facility] Oncology and Hematology - [place] [address] [place] [address] [facility] [address] [place] [address] Alex Locke MD [address] [facility] [address] [place] [address] documented as of this encounter Procedures Procedure Name Priority Date/Time Associated Diagnosis Comments CBC WITH DIFFERENTIAL Routine 12/08/2024 1:51 PM WAREHOUSE DELIVERY MANAGER documented in this encounter Results * (ABNORMAL) CBC WITH DIFFERENTIAL (12/08/2024 1:51 PM WAREHOUSE DELIVERY MANAGER) [facility] Signature WBC 5.4 3.8 - 10.8 Thousand/ uL [facility] RBC 2.44(L) 3.80 - 5.10 Million/u L [facility] HEMOGLOBIN 4.7(LL) 11.7 - 15.5 g/dL [facility] Comment: Verified by repeat analysis. HEMATOCRIT 19.1(L) 35.0 - 45.0 % [facility] Comment: Verified by repeat analysis. MCV 78.3(L) 80.0 - 100.0 fL [facility] MCH 19.3(L) 27.0 - 33.0 pg [facility] MCHC 24.6(L) 32.0 - 36.0 g/dL [facility] Comment: For adults, a slight decrease in the calculated MCHC value (in the range of 30 to 32 g/dL) is most likely not clinically significant; however, it should be interpreted with caution in correlation with other red cell parameters and the patient's clinical condition. RDW 15.9(H) 11.0 - 15.0 % [facility] PLATELETS 498(H) 140 - 400 Thousand/ uL [facility] MPV 10.6 7.5 - 12.5 fL [facility] NEUTROPHIL ABSOLUTE 2,700 1,500 - 7,800 cells/uL [facility] BANDS ABSOLUTE 54 0 - 750 cells/uL [facility] LYMPHOCYTE ABSOLUTE 1,998 850 - 3,900 cells/uL [facility] MONOCYTE ABSOLUTE 378 200 - 950 cells/uL [facility] EOSINOPHIL ABSOLUTE 108 15 - 500 cells/uL [facility] BASOPHILS ABSOLUTE 162 0 - 200 cells/uL [facility] NEUTROPHIL 50 % [facility] BANDS 1 % [facility] LYMPHOCYTES 37 % [facility] MONOCYTE 7 % [facility] EOSINOPHILS 2 % [facility] BASOPHILS 3 % [facility] COMMENT HEMATOLOGY [facility] Comment: The smear has been manually reviewed and the manual differential has been reported. Review of the peripheral smear reveals increased numbers of platelets. Hypochromasia 2 + Anisocytosis 2 + Basophilic stippling 1 + Tear-drop cells 1 + Ovalocytes 1 + Test Performed at: [place] [address] [place] ??[phone] Katelynn Tan 12/08/2024 1:51 PM WAREHOUSE DELIVERY MANAGER 12/08/2024 1:52 PM WAREHOUSE DELIVERY MANAGER us Alex Locke MD HEMATOLOGY ORDERABLES Final Res ult [facility] [phone] [place] [address] [place] [address] documented in this encounter Visit Diagnoses Not on filedocumented in this encounter Care Teams Computer Science Teacher Relationship Specialty Start Date End Date Mark Burdick MD [address] [place] [phone] PCP - General Family Practice 06/21/24 documented as of this encounter
--- OUTSIDE RECORDS SUMMARY | 2024-12-09 21:11 | XMS_ITS | Clinical Summary ---
Author Organization [facility] Address [address] [place] [address] [place] [address] Care Team Providers Care Administrative Support Coordinator Name Role Phone Mark Burdick MD Primary Care Provider [phone] Allergies No known active allergies Medications traZODone (DESYREL) 50 mg tablet Take 50 mg by mouth 2 times daily. 09/16/2021 Active cholecalciferol 1,250 mcg (50,000 unit) Capsule Take 50,000 Units by mouth every 7 days. Active ferrous fumarate (FERRETTS) 325 mg (106 mg iron) Tablet Take 325 mg by mouth daily. Active atogepant (Qulipta) 10 mg Tablet Take 10 mg by mouth daily. Active zolpidem (AMBIEN) 5 mg tablet Take 1 Tablet by mouth daily. 11/03/2024 Active atomoxetine (STRATTERA) 40 mg capsule Take 40 mg by mouth daily. 11/30/2024 Active Active Problems No known active problems Encounters Date Type Department Care Team Description 12/09/2024 12:30 PM FOREST RANGER TECHNICIAN Office Visit [facility] Oncology and Hematology - [place] [address] [facility] [address] [place] [address] [place] [address] Alex Locke MD Chronic anemia (Primary Dx) 12/08/2024 Orders Only Initial Department [address] [facility] [address] [place]ATES: [place] [address] Provider, Historical 12/01/2024 External Device Data STL ABSTRACTION Provider, [...] Comments Blood Pressure 117/80 12/09/2024 12:36 PM FOREST RANGER TECHNICIAN Pulse 96 12/09/2024 12:36 PM FOREST RANGER TECHNICIAN Temperature 36.6 ??C (97.8 ??F) 12/09/2024 12:[address] Respiratory Rate 16 12/09/2024 12:36 PM FOREST RANGER TECHNICIAN Oxygen Saturation 94% 12/09/2024 12:36 PM FOREST RANGER TECHNICIAN Inhaled Oxygen Concentration - - Weight 73.6 kg (162 lb 3.2 oz) 12/09/2024 12:36 PM FOREST RANGER TECHNICIAN Height 160 cm (5' 3 ) 06/21/2024 10:56 AM CDT Body Mass Index 28.73 06/21/2024 10:56 AM CDT Plan of Treatment Upcoming Encounters Date Type Department Care Team (Late st Contact Info) Description 01/09/2025 11:00 AM FOREST RANGER TECHNICIAN Office Visit [facility] Oncology and Hematology - [place] [address] [facility] [address] [place] [address] Alex Locke MD [address] [facility] [place] [address] [place] [address] Health Maintenance Due Date Last Done Comments Pre-Diabetes and Diabetes Screening 1982 HEPATITIS B VACCINES (1 of 3 - 19+ 3-dose series) 2001 CERVICAL CANCER SCREENING 2012 BREAST CANCER SCREENING 2022 COVID-19 Vaccine ( season) 2024 2021, 03/22/2021 DTAP/TDAP/TD VACCINES (2 - Td or Tdap) 10/14/2028 10/14/2018 INFLUENZA VACCINE Completed 10/05/2024, , 08/24/2020, Additional history exists HPV VACCINES Aged Out No longer eligi ble based on patient's age to complete this topic Procedures Procedure Name Priority Date/Time Associated Diagnosis Comments CBC WITH DIFFERENTIAL Routine 12/08/2024 1:51 PM FOREST RANGER TECHNICIAN VITAMIN B12 AND FOLATE Routine 8:22 AM FOREST RANGER TECHNICIAN Chronic anemia RETICULOCYTES Routine 12/06/2024 8:22 AM FOREST RANGER TECHNICIAN Chronic anemia LACTATE DEHYDROGENASE Routine 12/06/2024 8:22 AM FOREST RANGER TECHNICIAN Chronic anemia IRON, TIBC, AND PERCENT SATURATION Routine 12/06/2024 8:22 AM FOREST RANGER TECHNICIAN Chronic anemia FERRITIN Routine 12/06/2024 8:22 AM FOREST RANGER TECHNICIAN Chronic anemia from Last 3 Months Results * (ABNORMAL) CBC WITH DIFFERENTIAL (12/08/2024 1:51 PM FOREST RANGER TECHNICIAN) WBC 5.4 3.8 - 10.8 Thousand/ uL [facility] RBC 2.44(L) 3.80 - 5.10 Million/u L [facility] HEMOGLOBIN 4.7(LL) 11.7 - 15.5 g/dL [facility] Comment: Verified by repeat analysis. HEMATOCRIT 19.1(L) 35.0 - 45.0 % [facility] Comment: Verified by repeat analysis. MCV 78.3(L) 80.0 - 100.0 fL [facility] MCH 19.3(L) 27.0 - 33.0 pg [facility] MCHC 24.6(L) 32.0 - 36.0 g/dL [facility] Comment: For adults, a slight decrease in the calculated MCHC value (in the range of 30 to 32 g/dL) is most likely not clinically significant; however, it should be interpreted with caution in correlation with other red cell parameters and the patient's clinical condition. RDW 15.9(H) 11.0 - 15.0 % [facility] PLATELETS 498(H) 140 - 400 Thousand/ uL [facility] MPV 10.6 7.5 - 12.5 fL [...] + Ovalocytes 1 + Test Performed at: [place] [address] [place] ??[phone] ParrisOrlandoleigh Tameka 12/08/2024 1:51 PM FOREST RANGER TECHNICIAN 12/08/2024 1:52 PM FOREST RANGER TECHNICIAN us Alex Locke MD HEMATOLOGY ORDERABLES Final Res ult [facility] [phone] [place] [address] [place] [address] * VITAMIN B12 AND FOLATE (12/06/2024 8:22 AM FOREST RANGER TECHNICIAN) VITAMIN B12 485 200 - 1100 pg/mL [facility] FOLATE, SERUM 13.9 ng/mL [facility] Comment: ? Reference Range ? Low: ? <3.4 ? Borderline: ?3.4-5.4 ? Normal: ?>5.4 Test Performed at: [address] ??[phone] Katelynn Tan MD Blood 12/06/2024 8:22 AM FOREST RANGER TECHNICIAN 12/06/2024 8:22 AM FOREST RANGER TECHNICIAN Alex Locke MD CHEMISTRY ORDERABLES Final Resu lt [facility] [phone] [address] * (ABNORMAL) IRON, TIBC, AND PERCENT SATURATION (12/06/2024 8:22 AM FOREST RANGER TECHNICIAN) IRON <10(L) 40 - 190 mcg/dL [facility] Comment: Verified by repeat analysis. TIBC 456(H) 250 - 450 mcg/dL (calc) [facility] IRON % SATURATION 1.10(L) 16 - 45 % (calc) [facility] Comment: Test Performed at: [facility] ??[phone] Katelynn Tan MD Blood 12/06/2024 8:22 AM FOREST RANGER TECHNICIAN 12/06/2024 8:22 AM FOREST RANGER TECHNICIAN Alex Locke MD CHEMISTRY ORDERABLES Final Resu lt Performing Organization Address [facility]/ZIP Co de Phone Number [facility] [phone] [facility] [address] [place] [phone] * RETICULOCYTES (12/06/2024 8:22 AM FOREST RANGER TECHNICIAN) RETICULOCYTES 1.1 % [facility] RETICULOCYTE, ABSOLUTE 26,400 20,000 - 80,000 cells/uL [facility] Comment: Test Performed at: [facility] [address] [place] [address] ??[phone] Katelynn Tan MD Blood 12/06/2024 8:22 AM FOREST RANGER TECHNICIAN 12/06/2024 8:22 AM FOREST RANGER TECHNICIAN us Alex Locke MD HEMATOLOGY ORDERABLES Final Res ult Performing Organization Address [facility] Co de Phone Number [facility] [phone] [facility] [address] [place] [phone] * LACTATE DEHYDROGENASE (12/06/2024 8:22 AM FOREST RANGER TECHNICIAN) Pathologist [facility] LD (LACTATE DEHYDROGENASE) 125 100 - 200 U/L [facility] Comment: Test Performed at: [facility] [address] [place] [address] ??[phone] Katelynn Tan MD Blood 12/06/2024 8:22 AM FOREST RANGER TECHNICIAN 12/06/2024 8:22 AM FOREST RANGER TECHNICIAN us Alex Locke MD CHEMISTRY ORDERABLES Final Resu lt Performing Organization Address [facility] Co de Phone Number [facility] [phone] [facility] [address] [place] [phone] * (ABNORMAL) FERRITIN (12/06/2024 8:22 AM FOREST RANGER TECHNICIAN) Pathologist [facility] FERRITIN 1(L) 16 - 232 ng/mL [facility] Comment: Test Performed at: [facility] [address] ??[phone] Katelynn Tan MD Blood 12/06/2024 8:22 AM FOREST RANGER TECHNICIAN 12/06/2024 8:22 AM FOREST RANGER TECHNICIAN us Alex Locke MD CHEMISTRY ORDERABLES Final Resu lt [facility] [phone] [facility] [address] [phone] from Last [address] [address] [place] [address] Care Teams Administrative Support Coordinator Relationship Specialty Start Date End Date Mark Burdick MD [address] [place] [address] PCP - General Family Practice 06/21/24
[2024-12-09 22:00] VITALS: BP 122/74; PULSE 98; RESP 15; TEMP 36.9; O2SAT 100
[2024-12-09 22:07] VITALS: BP 122/74; PULSE 98; RESP 15; TEMP 36.9; O2SAT 100
[2024-12-09] MEDS: SODIUM CHLORIDE 0.9% IV 250 ML 30 ML IV CONT (22:08)
[2024-12-09] MEDS: TUBING, BLOOD PLUM PUMP TUBING 1 EACH XX (22:08)
[2024-12-09 22:16] VITALS: BP 116/80; PULSE 96; RESP 15; TEMP 36.9; O2SAT 100
[2024-12-09] MEDS: diphenhydrAMINE HCl INJ 50 MG/ML VIAL 25 MG IV PUSH (22:17)
[2024-12-09 23:38] VITALS: BP 100/66; PULSE 104; RESP 21; O2SAT 100
[2024-12-10] VITALS (9 sets, daily range): BP systolic 100–116; BP diastolic 52–78; PULSE 84–101; RESP 14–19; TEMP 36.5–36.8; O2SAT 79–100; BMI 30.3
[2024-12-10] MEDS: TUBING, BLOOD PLUM PUMP TUBING 1 EACH XX (01:44)
--- NOTE | 2024-12-10 02:49 | ADMGEN ---
This patient, Chioma Kline, was admitted to 3 Med Surg Room 303-01. Patient/family oriented to hospital policies and general routines including ID bracelet, bed and alarms, visiting hours, pain management, procedures, bathroom and other care routines, personal items, smoking policy, room service/diet, and visiting hours. Information on how to activate the Rapid Response Team has been discussed. Patient/Family are encouraged to report perceived risks to care and to ask questions if they do not understand what they are told or what they should do.
[2024-12-10 06:35] LABS: Basophils Absolute Auto 0.1 K/mm3 (0.0-0.1); Basophils Percent Auto 0.9 % (0.2-1.2); Eosinophils Absolute Auto 0.1 K/mm3 (0-0.3); Eosinophils Percent Auto 1.6 % (0-4.4); Hematocrit 23.4 % (37.0-47.0); Immature Granulocyte Absolute 0.02 K/mm3 (0.00-0.031); Immature Granulocyte Percent A 0.3 % (0-0.5); Lymphocytes Absolute Auto 1.66 K/mm3 (0.9-3.2); Mean Corpuscular HGB Conc 29.9 g/dl (32-36); Mean Corpuscular Hemoglobin 22.8 pg (26-34); Mean Corpuscular Volume 76.2 fl (80-100); Mean Platelet Volume 9.5 fl (7.4-10.4); Monocytes Absolute Auto 0.8 K/mm3 (0.1-0.6); Monocytes Percent Auto 11.9 % (2.6-8.5); Neutrophils Absolute Auto 3.8 K/mm3 (1.3-6.7); Neutrophils Percent Auto 59.3 % (45.5-73.1); Platelet Count Result 385 k/mm3 (150-375); Red Blood Count 3.07 M/mm3 (4.2-5.4); Red Cell Distribution Width 19.7 % (11.5-14.5); White Blood Count 6.4 K/mm3 (4.5-10.0)
[2024-12-10 07:23] LABS: Anisocytosis 1+; Hypochromasia 2+; Platelet Estimate Adequate (Adequate); Target Cells 1+
[2024-12-10 07:24] LABS: Schistocytes Rare
--- NOTE | 2024-12-10 10:51 | PM.IMHP ---
H&P: HPI History of Present Illness Date/Time: 12/10/24 10:51 Chief Complaint: low hg Narrative: 44 y.o female with PMH/o migraine headaches, ADHD, vit D deficiency she is following with DR Locke as an oupt. She was found to have hg of 4.9. C/o sob with exertion. She is on oral and IV Iron replacement. She recently completed her menstrual cycle 2 days ago. Denies, black stools, blood in urine or stool, feeling of dizziness or passing out. Of note, she recently had EGD on 10/[address] Ba, multiple biopsies were taken, unremarkable EGD. she is feeling better after 2 units of blood. still somewhat weak. Reports cramping after meals. denies any chest pain, no blood in urine or stool., non smoker, non drinker. Seeing her OBGYN for uterine issues that could be contributing to her anemia. [facility] Past Medical History Medical History Depression with anxiety Family history of colon cancer in father Migraine Anemia, hemolytic, G6PD deficiency Surgical History Surgical History History of endometrial ablation History of breast lift History of abdominoplasty History of bilateral tubal ligation with 3rd History of x3 Family History Family History Sibling G6PD deficiency Social History Social History Social History: Smoking status: Never smoker Second hand tobacco smoke exposure: No Alcohol intake: never Substance use: never Substance use type: does not use Do You Feel Safe in your Home?: Yes Lack of Transportation: No Lack of Food: Never True Current Housing: I Have Housing Concerned About Future Housing: No Difficulty Paying Gas/Electric Bills: No Difficulty Paying for Meds: No Currently Unemployed: No Education: Bachelor's Degree Difficulty w/ Childcare or Family Care: No Living arrangements: with family Spiritual care concerns: No Meds Home Medications and Allergies Home Medications ?Medication ?Instructions ?Recorded ?Confirmed ?Type ferrous sulfate 325 mg (65 mg 325 mg PO BID #60 tabs 06/14/24 12/10/24 Rx iron) tablet,delayed release atogepant 30 mg tablet (Qulipta) 30 mg PO DAILY PRN MIGRAINES 07/07/24 12/10/24 History ergocalciferol (vitamin D2) 1,250 50,000 unit PO WEEKLY 07/07/24 12/10/24 History mcg (50,000 unit) capsule atomoxetine 40 mg PO DAILY 10/12/24 12/10/24 History zolpidem 5 mg PO HS 10/12/24 12/10/24 History Allergies Allergy/AdvReac Type Severity Reaction Status Date / Time No Known Allergies Allergy Verified 12/09/24 13:54 Vital Signs Vital Signs - 24 hr 12/09/24 14:28 12/09/24 21:02 12/09/24 22:00 Temperature 97.9 F 98.2 F 98.4 F Pulse Rate 110 H 99 98 Respiratory Rate 20 18 15 Blood Pressure 135/75 123/77 122/74 Pulse Oximetry 100 100 100 Oxygen Delivery Room Air 12/09/24 22:07 12/09/24 22:16 12/09/24 23:38 Temperature 98.4 F 98.4 F Pulse Rate 98 96 104 H Respiratory Rate 15 15 21 H Blood Pressure 122/74 116/80 100/66 Pulse Oximetry 100 100 100 Oxygen Delivery 12/10/24 01:38 12/10/24 01:41 12/10/24 01:47 Temperature 97.9 F 97.9 F 97.9 F Pulse Rate 97 93 97 Respiratory Rate 15 14 19 Blood Pressure 100/70 100/70 100/52 L Pulse Oximetry 100 100 100 Oxygen Delivery 12/10/24 01:57 12/10/24 02:26 12/10/24 02:50 Temperature 98.0 F 97.7 F 97.7 F Pulse Rate 94 92 89 Respiratory Rate 18 16 14 Blood Pressure 110/70 114/76 114/75 Pulse Oximetry 100 99 100 Oxygen Delivery 12/10/24 05:28 Temperature 98.1 F Pulse Rate 101 H Respiratory Rate 16 Blood Pressure 116/66 Pulse Oximetry 100 Oxygen Delivery H&P: Results Labs Labs: Short CBC 12/10/24 Range/Units 05:57 WBC 6.4 (4.5-10.0) K/mm3 Hgb 7.0 L (12.0-15.0) g/dL Hct 23.4 L (37.0-47.0) % Plt Count 385 H (150-375) k/mm3 BMP 12/09/24 17:53 Sodium 139 Potassium 3.7 Chloride 105 Carbon Dioxide 23 BUN 11 Creatinine 0.59 L Glucose 100 Calcium 8.8 Liver Function 12/09/24 Range/Units 17:53 Total Bilirubin 0.4 (0.2-1.3) mg/dL AST 27 (14-36) U/L ALT 19 (6-35) U/L Alkaline Phosphatase 86 (38-126) U/L Albumin 4.1 (3.5-5.1) g/dL Assessment and Plan Assessment and plan (1) Menorrhagia: Code(s): N92.0 - Excessive and frequent menstruation with regular cycle Status: Acute (2) Anemia, hemolytic, G6PD deficiency: Code(s): D55.0 - Anemia due to hwqzjzm-6-ghdioobjm dehydrogenase [G6PD] deficiency Status: Acute (3) BARI (iron deficiency anemia): Code(s): D50.9 - Iron deficiency anemia, unspecified Status: Acute Plan Pt received 2 units of PRBC -repeat Hg is 7.4. will repeat in am She is working with her OBGYN for uterine issues taht DR Locke believe contributes to her anemia # chronic migraine headache- resume home meds # chronic insomnia-resume home meds Quality VTE Prophylaxis VTE prophylaxis: mechanical ordered
[2024-12-10 13:56] LABS: Hematocrit 24.5 % (37.0-47.0); Hemoglobin 7.4 g/dL (12.0-15.0)
[2024-12-10] MEDS: FAMOTIDINE 20 MG TABLET PO (15:29)
[2024-12-10] MEDS: FERROUS SULFATE 325 MG TABLET DR PO (17:17)
[2024-12-10] MEDS: ONDANSETRON INJ 4 MG/2 ML VIAL IV PUSH (20:40)
[2024-12-10] MEDS: ZOLPIDEM TARTRATE (*CRX) 5 MG TABLET PO (20:40)
[2024-12-11 05:05] VITALS: BP 115/80; PULSE 94; RESP 16; TEMP 36.7; O2SAT 100
[2024-12-11 06:40] LABS: Hematocrit 24.6 % (37.0-47.0); Hemoglobin 7.3 g/dL (12.0-15.0)
[2024-12-11] MEDS: FERROUS SULFATE 325 MG TABLET DR PO (09:18)
[2024-12-11] MEDS: ONDANSETRON INJ 4 MG/2 ML VIAL IV PUSH (09:18)
--- NOTE | 2024-12-11 12:22 | P.DS_ITS ---
DS: Admitting Diagnosis Discharge Date 12/11/24 Admitting Diagnosis anemia DS: Discharge Diagnosis Discharge Diagnosis (1) Menorrhagia: Code(s): N92.0 - Excessive and frequent menstruation with regular cycle Status: Acute (2) Anemia, hemolytic, G6PD deficiency: Code(s): D55.0 - Anemia due to qdzuykg-7-axnuzqlxu dehydrogenase [G6PD] deficiency Status: Acute (3) BARI (iron deficiency anemia): Code(s): D50.9 - Iron deficiency anemia, unspecified Status: Acute DS: Summary Hospital Course Hospital Course: 44 y.o female with PMH/o migraine headaches, ADHD, vit D deficiency she is following with DR Locke as an oupt. She was found to have hg of 4.9. C/o sob with exertion. She is on oral and IV Iron replacement. She recently completed her menstrual cycle 2 days ago. Denies, black stools, blood in urine or stool, feeling of dizziness or passing out. She is working with her OBGYN for uterine issues that DR Locke believe contributes to her anemia Of note, she recently had EGD on 10/[address] Ba, multiple biopsies were taken, unremarkable EGD. she is feeling better after 2 units of blood. still somewhat weak. Reports cramping after meals. denies any chest pain, no blood in urine or stool., non smoker, non drinker. Seeing her OBGYN for uterine issues that could be contributing to her anemia. Pt received 2 units of PRBC -repeat Hg is 7.4. Repeated 7.3. It had been awhile since she got her iron infusion. will give dose here and discharge with a close f/u with PCP and hem/onc. Will order CBC to be repeated within the next couple of days. REturn to ED f start feeling dizzy,lightheaded, blood in urine or stool or any new or worsening sympotms. Status at Discharge Functional status at discharge: independent ambulation Overall status at discharge: patient is progressing back to baseline Time Spent with Patient Time attestation: Total time spent providing and/or coordinating discharge services: Time spent: Greater than 30 minutes Exam Const: General: comfortable Eyes: General: appearance normal, both eyes and all related structures Resp: Effort & Inspection: normal respiratory effort Auscultation: clear to auscultation bilaterally Cardio: Rate: regular rate Rhythm: regular rhythm GI: GI Palp: Yes Soft to palpation Auscultation: normal bowel sounds Skin: General skin exam: normal color Neuro: General: gait normal Motor exam (neuro): 5/5 motor strength present throughout Sensory Exam: normal sensation Extrem: General: normal to inspection DS: Data Data Completed and Pending Labs on day of discharge: Labs from last 24 hours 12/11/24 12/10/24 06:19 13:52 Hgb 7.3 L 7.4 L Hct 24.6 L 24.5 L Discharge Plan Discharge Attending physician on discharge: Rickie Neely Discharging Clinician: Deborah Turk Anticipated Discharge Date/Time: 12/11/24 15:00 Patient Disposition: Home, Self-Care Activity: march shower Diet: regular Discharge Instructions: You were admitted for anemia. You rceived 2 units of blood. Repeated hg was 7.3-7.4. Since it had been awhile, we will give you a dose of IV iron as well. Please follow up with PCP and director industrial nursing within a week. CBC is ordered, please have labs done in the next couple of days after discharge prior to your farhan with pcp or director industrial nursing. Come back to ed if you feel dizzy, palpitation (racing heart), sob, fatigued and/or having any other new or worsening symptoms. Patient Instructions: Antibiotic Form Patient Language: Syrian Stand Alone Forms: General Discharge Information Follow-up/Referrals: Alex Locke MD [Physician] - 1 Week Rajendra,Annmarie Dalton, CLOTH ST[employer]TER [Primary Care Provider] - 1 Week Discharge Medications: Continued ferrous sulfate 325 mg (65 mg iron) Tablet,Delayed Release (Dr/Ec) 325 mg PO BID Qty: 60 0RF atomoxetine 40 mg PO DAILY zolpidem 5 mg PO HS ergocalciferol (vitamin D2) 1,250 mcg (50,000 unit) capsule 50,000 unit PO WEEKLY Patient Comments: takes on tuesdays Qulipta 30 mg Tablet 30 mg PO DAILY PRN (Reason: MIGRAINES) Other Ambulatory Orders: Complete Blood Count no Diff (Routine) Timeframe: 1 Week Location: Determined by Patient Ordered By: Deborah Turk Date of admission: 12/09/24 23:15 Primary Care Provider: TavonAnnmarie Admitting Provider: Mariano Thornton V. Attending physician on admission: Mariano Thornton V. Condition: Stable Quality VTE Prophylaxis VTE prophylaxis: mechanical ordered Hospitalist MIPS Heart Failure (Exclusion) Patient has history of Heart Transplant or Left Ventricular Assistive Device?: No IF YES, STOP HERE Heart Failure (Qualifier) Patient has current or prior documentation of LVEF less than or equal to 40%, or mod/servere depressed LVSF?: No IF NO, STOP HERE
[2024-12-11] MEDS: ONDANSETRON HCL ODT 4 MG TABLET PO (13:15)
[2024-12-11] MEDS: IRON SUCROSE COMPLEX 100 MG in SODIUM CHLORIDE 0.9% IV 50 ML 220 MG IVPB (13:16)
== END 2024-12-11 14:25 | disposition home or self-care (01) ==
LOC: ANHED 23:27 → ANH3MEDSUR 12-11 12:32
PROVIDERS: Nurse Practitioner; Physician Assistant; Admitting Provider Internal Medicine; Emergency Provider Emergency Medicine; Visit Provider General Practice
DX: N92.0 Excessive and frequent menstruation with regular cycle (principal); D55.0 Anemia due to glucose-6-phosphate dehydrogenase [G6PD] deficiency; D50.9 Iron deficiency anemia, unspecified; F90.9 Attention-deficit hyperactivity disorder, unspecified type; F41.8 Other specified anxiety disorders; G43.909 Migraine, unspecified, not intractable, without status migrainosus; E55.9 Vitamin D deficiency, unspecified; F51.04 Psychophysiologic insomnia; Z79.899 Other long term (current) drug therapy; Z80.0 Family history of malignant neoplasm of digestive organs
CPT/HCPCS: 36415; 36430; 80053; 85014; 85018; 85025; 86850; 86900; 86901; 86923; 96361; 96374; 96375; 99285; A9270; G0378; J1200; J1756; J2405; J7050; P9016

== ENCOUNTER 2025-01-09 12:01 | Outpatient (CLI) | payer OTHER, SELFPAY ==
[2025-01-09 13:04] LABS: Immature Reticulocyte Fraction 14.7 % (3.0-15.9); Mean Corpuscular HGB Conc 29.5 g/dl (32-36); Mean Corpuscular Hemoglobin 22.5 pg (26-34); Mean Corpuscular Volume 76.2 fl (80-100); Mean Platelet Volume 9.6 fl (7.4-10.4); Platelet Count Result 433 k/mm3 (150-375); Red Blood Count 2.31 M/mm3 (4.2-5.4); Red Cell Distribution Width 23.4 % (11.5-14.5); Reticulocyte Hemoglobin Conten 15.2 pg (28.2-36.6); Reticulocyte Percent 0.91 % (0.7-4.3); Reticulocytes Absolute 0.02 10^6/uL (0.02-0.10); White Blood Count 6.2 K/mm3 (4.5-10.0)
[2025-01-09 13:06] LABS: Hemoglobin 5.2 g/dL (12.0-15.0)
[2025-01-09 13:07] LABS: Hematocrit 17.6 % (37.0-47.0)
[2025-01-09 16:06] LABS: Iron 19 ug/dL (37-170)
[2025-01-09 16:17] LABS: Percent Iron Saturation 4 % (20-50)
[2025-01-09 16:44] LABS: Ferritin 3.16 ng/mL (6.24-137)
[2025-01-09 19:42] LABS: Alanine Aminotransferase 16 U/L (6-35); Albumin Level 3.6 g/dL (3.5-5.1); Alkaline Phosphatase 72 U/L (38-126); Anion Gap 8 mmol/L (4-12); Aspartate Amino Transferase 22 U/L (14-36); Bilirubin,Total 0.4 mg/dL (0.2-1.3); Blood Urea Nitrogen 13 mg/dL (7-17); Calcium 8.6 mg/dL (8.4-10.2); Carbon Dioxide 24 mmol/L (22-30); Chloride 105 mmol/L (98-107); Estimated Glomerular Filt Rate > 60; Glucose 84 mg/dL (65-110); Lactate Dehydrogenase 142 U/L (120-246); Potassium 3.2 mmol/L (3.4-5.0); Sodium 137 mmol/L (137-145)
[2025-01-09 20:42] LABS: Folic Acid 10.3 ng/mL (2.76->20)
[2025-01-11 19:24] LABS: Hematocrit 19.3 % (35.0-45.0); Hemoglobin 5.2 g/dL (11.7-15.5); MCH 22.1 pg (27.0-33.0); MCV 82.1 fL (80.0-100.0); RDW 21.1 % (11.0-15.0); Red Blood Cell Count 2.35 Million/uL (3.80-5.10)
== END 2025-01-09 12:02 | disposition home or self-care (01) ==
LOC: ANHLAB 12:02
PROVIDERS: Visit Provider Internal Medicine Hematology & Oncology
DX: D64.9 Anemia, unspecified (principal)
CPT/HCPCS: 36415; 80053; 82607; 82728; 82746; 83021; 83540; 83550; 83615; 84238; 85027; 85046

== ENCOUNTER 2025-01-10 07:06 | Outpatient (RCR) | payer OTHER, SELFPAY ==
[2025-01-10] VITALS (9 sets, daily range): BP systolic 97–111; BP diastolic 66–75; PULSE 84–102; RESP 14–18; TEMP 36.2–36.8; O2SAT 100
[2025-01-10 07:44] LABS: Hemoglobin 4.7 g/dL (12.0-15.0)
[2025-01-10 07:45] LABS: Hematocrit 16.4 % (37.0-47.0)
[2025-01-10] MEDS: diphenhydrAMINE HCl CAP 25 MG CAPSULE PO (08:46)
[2025-01-10] MEDS: ACETAMINOPHEN 325 MG TABLET 650 MG PO (08:46)
[2025-01-10] MEDS: SODIUM CHLORIDE 0.9% IV 250 ML 30 ML IV CONT (08:48)
--- NOTE | 2025-01-10 09:28 | PC.NURSE ---
Patients H&H resulted critically low, Hgb: 4.7, Hct: 16.7. This RN notified Dr. Locke and received telephone orders for an additional 1 unit of PRBC while shes here.
== END 2025-02-06 14:08 | disposition home or self-care (01) ==
LOC: ANHCPCTRAN 07:06
PROVIDERS: Visit Provider Internal Medicine Hematology & Oncology
DX: D64.9 Anemia, unspecified (principal)
CPT/HCPCS: 36415; 36430; 85014; 85018; 86850; 86900; 86901; 86923; A9270; J7050; P9016

== ENCOUNTER 2025-02-07 07:13 | Outpatient (RCR) | payer OTHER, SELFPAY ==
[2025-02-07] VITALS (9 sets, daily range): BP systolic 107–124; BP diastolic 70–79; PULSE 65–98; RESP 16–18; TEMP 36.4–37.4; O2SAT 100
[2025-02-07] MEDS: ACETAMINOPHEN 325 MG TABLET 650 MG PO (07:37)
[2025-02-07] MEDS: diphenhydrAMINE HCl CAP 25 MG CAPSULE PO (07:37)
[2025-02-07] MEDS: SODIUM CHLORIDE 0.9% IV 250 ML 30 ML IV CONT (07:38)
[2025-02-07 07:42] LABS: Hematocrit 18.7 % (37.0-47.0); Hemoglobin 5.6 g/dL (12.0-15.0)
[2025-02-07] MEDS: FUROSEMIDE INJ 40 MG/4 ML VIAL 20 MG IV PUSH (09:54)
== END 2025-05-08 23:59 | disposition home or self-care (01) ==
LOC: ANHCPCTRAN 07:13
PROVIDERS: Visit Provider Internal Medicine Hematology & Oncology
DX: D64.9 Anemia, unspecified (principal)
CPT/HCPCS: 36415; 36430; 85014; 85018; 86850; 86900; 86901; 86923; 96374; A9270; J1938; J7050; P9016

== ENCOUNTER 2025-02-13 07:03 | Outpatient (CLI) | payer OTHER, SELFPAY ==
--- NOTE | ~2025-02-13 | CT_ITS ---
CT of the Abdomen and Pelvis: Indication: Anemia Technique: 2.5 mm axial scans were obtained through the abdomen and pelvis following intravenous adm inistration of 100 cc of Omnipaque 350. Dose reduction technique was used on this scan by utilizing a utomated exposure control and iterative reconstruction technique. The dose-length product (DLP) was 2 87.26 mGy-cm. Findings: Scans through the lung bases are unremarkable. Several hepatic cysts are noted. The spleen, pancreas, gallbladder, adrenals and kidneys are within n ormal limits. No evidence of aortic aneurysm. No lymphadenopathy. There is some fluid distended small bowel loops, but no distinct evidence for obstruction. Large sherwin l unremarkable. Images through the pelvis were performed. Heterogeneous uterus suggests presence of fibroids. Probabl e mildly complex left ovarian cyst. No ascites. Impression: Probable mildly complex left ovarian cyst and probable uterine fibroids. Consider follow-up ultrasoun d to further evaluate. Several fluid-filled minimally distended small bowel loops. Correlate for diarrheal illness. No disti nct evidence for obstruction. Reviewed, dictated and finalized at location . Impression: Probable mildly complex left ovarian cyst and probable uterine fibroids. Consid er follow-up ultrasound to further evaluate. Several fluid-filled minimally distended small bowel loops. Correlate for diarr heal illness. No distinct evidence for obstruction.
--- OUTSIDE RECORDS SUMMARY | 2025-02-13 07:07 | XMS_ITS | Clinical Summary ---
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 Name Role Phone Mark Burdick MD Primary Care Provider [phone] Allergies No known active allergies Medications traZODone [...] Encounters Date Type Department Care Team Description 02/07/2025 Orders Only [facility] Oncology and Hematology - [place] [address] [place] [id number] Alex Locke MD 02/06/2025 Abstract [facility] Oncology and Hematology - [place] [address] [place] [address] Alex Locke MD 01/25/2025 External Device Data STL ABSTRACTION Provider, Abstract 01/24/2025 4:00 PM CDT Telephone Check Up [facility] Oncology and Hematology - [place] [address] [place] [address] Alex Locke MD 01/14/2025 External Device Data STL ABSTRACTION Provider, Abstract 01/14/2025 External Device Data STL ABSTRACTION Provider, Abstract 01/11/2025 External Device Data STL ABSTRACTION Provider, Abstract 01/10/2025 Abstract [facility] Oncology and Hematology [place] [address] [place] [address] Alex Locke MD 01/10/2025 Orders Only [facility] Oncology and Hematology - [place] [address] [place] [address] Alex Locke MD 01/09/2025 11:00 AM VIDEO PRODUCTION COORDINATOR Office Visit [facility] Oncology and Hematology [facility] [address] [place] [address] Alex Locke MD Chronic anemia (Primary Dx) 01/04/2025 Orders Only [facility] Oncology and Hematology - [place] [address] [place] [address] Alex Locke MD 12/28/2024 External Device Data STL ABSTRACTION Provider, Abstract 12/12/2024 Orders Only [facility] Oncology and Hematology - [place] [address] [place] [address] Alex Locke MD 12/09/2024 12:30 PM VIDEO PRODUCTION COORDINATOR Office Visit [facility] Oncology and Hematology [facility] [address] [place] [address] Alex Locke MD Chronic anemia (Primary Dx) 12/08/2024 Orders Only Initial Department [address] [facility] [address] BATES: Prelude [place] [address] Provider, Historical 12/01/2024 External Device Data STL [...] Sign Reading Time Taken Comments Blood Pressure 128/71 01/09/2025 11:11 AM VIDEO PRODUCTION COORDINATOR Pulse 98 01/09/2025 11:11 AM VIDEO PRODUCTION COORDINATOR Temperature 35.9 C (96.7 F) 01/09/2025 11:11 AM VIDEO PRODUCTION COORDINATOR Respiratory Rate 16 01/09/2025 11:11 AM VIDEO PRODUCTION COORDINATOR Oxygen Saturation 97% 01/09/2025 11:11 AM VIDEO PRODUCTION COORDINATOR Inhaled Oxygen Concentration - - Weight 70.9 kg (156 lb 3.2 oz) 01/09/2025 11:11 AM VIDEO PRODUCTION COORDINATOR Height 160 cm (5' 3 ) 06/21/2024 10:56 AM CDT Body Mass Index 27.67 06/21/2024 10:56 AM CDT Plan of Treatment Upcoming Encounters Date Type Department Care Team (Late st Contact Info) Description 03/09/2025 11:00 AM CDT Office Visit [facility] Oncology and Hematology - [place] [address] [place] [address] [facility] [address] [place] [address] Alex Locke MD [address] [facility] [address] [place] [address] Health Maintenance Due Date Last Done Comments Pre-Diabetes and Diabetes Screening 1982 HEPATITIS B VACCINES (1 of 3 - 19+ 3-dose series) 2001 HPV/Cotest (21-29) 2003 HPV/Cotest (30-65) 2012 CERVICAL CANCER SCREENING 02/09/2022 PAP SMEAR 02/09/2022 02/09/2019 BREAST CANCER SCREENING 2022 COVID-19 Vaccine (3 - season) 2024 2021, 03/22/2021 DTAP/TDAP/TD VACCINES (2 - Td or Tdap) 10/14/2028 10/14/2018 INFLUENZA VACCINE Completed 10/05/2024, , 08/24/2020, Additional history exists HPV VACCINES Aged Out No longer eligi ble based on patient's age to complete this topic Procedures Procedure Name Priority Date/Time Associated Diagnosis Comments CHG ANTIBODY SCREEN RBC EA SERUM Routine 02/06/2025 12:47 PM CDT CBC WITH AUTODIFFERENTIAL Routine 02/06/2025 12:05 PM CDT COMPREHENSIVE METABOLIC PANEL Routine 01/09/2025 11:16 AM VIDEO PRODUCTION COORDINATOR POONAM PANEL Routine 12/27/2024 10:26 AM VIDEO PRODUCTION COORDINATOR CBC WITH DIFFERENTIAL Routine 12/09/2024 9:18 AM VIDEO PRODUCTION COORDINATOR CBC WITH DIFFERENTIAL Routine 12/09/2024 8:26 AM VIDEO PRODUCTION COORDINATOR CBC WITH DIFFERENTIAL Routine 12/08/2024 1:51 PM VIDEO PRODUCTION COORDINATOR VITAMIN B12 AND FOLATE Routine 8:22 AM VIDEO PRODUCTION COORDINATOR Chronic anemia RETICULOCYTES Routine 12/06/2024 8:22 AM VIDEO PRODUCTION COORDINATOR Chronic anemia LACTATE DEHYDROGENASE Routine 12/06/2024 8:22 AM VIDEO PRODUCTION COORDINATOR Chronic anemia IRON, TIBC, AND PERCENT SATURATION Routine 12/06/2024 8:22 AM VIDEO PRODUCTION COORDINATOR Chronic anemia FERRITIN Routine 12/06/2024 8:22 AM VIDEO PRODUCTION COORDINATOR Chronic anemia from Last 3 Months Results * CHG ANTIBODY SCREEN RBC EA SERUM (02/06/2025 12:47 PM CDT) us Alex Locke MD CHG - LABORATORY Final Result * CBC WITH AUTODIFFERENTIAL (02/06/2025 12:05 PM CDT) Blood us Alex Locke MD HEMATOLOGY ORDERABLES Final Res ult * COMPREHENSIVE METABOLIC PANEL (01/09/2025 11:16 AM VIDEO PRODUCTION COORDINATOR) Blood Result [facility] us Alex Locke MD CHEMISTRY ORDERABLES Final Resu lt * POONAM PANEL (12/27/2024 10:26 AM VIDEO PRODUCTION COORDINATOR) Blood Result [facility] us Alex Locke MD CHEMISTRY ORDERABLES Final Resu lt * CBC WITH DIFFERENTIAL (12/09/2024 9:18 AM VIDEO PRODUCTION COORDINATOR) Only the most recent of3 resultswithin the time period is included. Blood us Alex Locke MD HEMATOLOGY ORDERABLES Final Res ult * VITAMIN B12 AND FOLATE (12/06/2024 8:22 AM VIDEO PRODUCTION COORDINATOR) Pathologist [facility] VITAMIN B12 485 200 - 1100 pg/mL [facility] FOLATE, SERUM 13.9 ng/mL [facility] Comment: Reference Range Low: <3.4 Borderline: 3.4-5.4 Normal: >5.4 Test Performed at: [facility] [address] [place] [address] Katelynn Tan MD Blood 12/06/2024 8:22 AM VIDEO PRODUCTION COORDINATOR 12/06/2024 8:22 AM VIDEO PRODUCTION COORDINATOR Result [facility] Alex Locke MD CHEMISTRY ORDERABLES Final Resu lt [facility] [phone] [facility] [id number] [place] [phone] * (ABNORMAL) IRON, TIBC, AND PERCENT SATURATION (12/06/2024 8:22 AM VIDEO PRODUCTION COORDINATOR) IRON <10(L) 40 - 190 mcg/dL [facility] Comment: Verified by repeat analysis. TIBC 456(H) 250 - 450 mcg/dL (calc) [facility] IRON % SATURATION 1.10(L) 16 - 45 % (calc) [facility] Comment: Test Performed at: [facility] [address] [place] [address] Katelynn Tan MD Blood 12/06/2024 8:22 AM VIDEO PRODUCTION COORDINATOR 12/06/2024 8:22 AM VIDEO PRODUCTION COORDINATOR Alex Locke MD CHEMISTRY ORDERABLES Final Resu lt Performing Organization Address [facility]/ZIP Co de Phone Number [facility] [phone] [facility] [address] [place] [address] [place] [address] * RETICULOCYTES (12/06/2024 8:22 AM VIDEO PRODUCTION COORDINATOR) RETICULOCYTES 1.1 % [facility] RETICULOCYTE, ABSOLUTE 26,400 20,000 - 80,000 cells/uL [facility] Comment: Test Performed at: [facility] Formerly named [facility] [address] [place] [address] Katelynn Tan MD Blood 12/06/2024 8:22 AM VIDEO PRODUCTION COORDINATOR 12/06/2024 8:22 AM VIDEO PRODUCTION COORDINATOR us Alex Locke MD HEMATOLOGY ORDERABLES Final Res ult [facility] [phone] [facility] [address] [place] [address] [place] [address] * LACTATE DEHYDROGENASE (12/06/2024 8:22 AM VIDEO PRODUCTION COORDINATOR) LD (LACTATE DEHYDROGENASE) 125 100 - 200 U/L [facility] Comment: Test Performed at: [facility] [address] [place] [address] Katelynn Tan MD Blood 12/06/2024 8:22 AM VIDEO PRODUCTION COORDINATOR 12/06/2024 8:22 AM VIDEO PRODUCTION COORDINATOR Alex Locke MD CHEMISTRY ORDERABLES Final Resu lt [facility] [phone] [facility] [address] [place] [address] * (ABNORMAL) FERRITIN (12/06/2024 8:22 AM VIDEO PRODUCTION COORDINATOR) FERRITIN 1(L) 16 - 232 ng/mL [facility] Comment: Test Performed at: [facility] [address] [place] [address] Katelynn Tan MD Blood 12/06/2024 8:22 AM VIDEO PRODUCTION COORDINATOR 12/06/2024 8:22 AM VIDEO PRODUCTION COORDINATOR Alex Locke MD CHEMISTRY ORDERABLES Final Resu lt [facility] [phone] [facility] [address] [place] [address] from Last [address] [place] [address] Care Teams Wire Drawing Die Maker Relationship Specialty Start Date End Date Mark Burdick MD [address] [place] [address] PCP - General Family Practice 06/21/24
--- OUTSIDE RECORDS SUMMARY | 2025-02-13 07:07 | XMS_ITS | Data Portability ---
Author Organization [place] [facility] [place] [employer], Main Office Address [address] [place] [address] Care Team Providers Care Quality Control Checker Name Role Phone MARK BURDICK Primary Care Provider Assessment No assessment recorded. Plan of Treatment Reminders Order Date Submit Date Provider Last Modified By Organization Details Last Modified Time Details Appointments None recorded. Lab lipid panel, serum [address] (Lab), [address] [place], [address], 5 07:55:33 CMP, serum or plasma [address] (Lab), [address] [place], [address], 5 07:55:33 CBC w/ auto diff [address] (Lab), [address] [place], [address], 5 07:55:32 iron + total iron-augusto ng capacity (TIBC), serum [address] (Lab), [address] [place], [address], 5 07:55:32 reticulocy te count, auto, blood [address] (Lab), [address] [place], [address], 5 07:55:33 TSH, serum or plasma [address] (Lab), [address] [place], [address], 5 07:55:33 POONAM (antinucle ar antibodies ) screen, serum 2024 025 PAYAL [facility] (Lab), [address] [place], [address], 5 10:26:02 rf (rheumatoi d factor), serum [address] (Lab), [address] [place], [address], 5 07:55:33 C-reactive protein, quantitati ve, serum or plasma [address] (Lab), [address] [place], [address], 5 07:55:33 glycohemog lobin, total, blood [address] (Lab), [address] [place], [address], 5 07:55:33 hepatitis C virus Ab, serum [address] (Lab), [address] [place], [address], 5 07:55:33 vitamin D, 25-hydroxy , total, serum [address] (Lab), [address] [place], [address], 4 08:18:46 vitamin B12 + folate, serum or blood [address] [facility] [address] ([facility]), [address] [place], [address], 4 08:18:46 iron + total iron-augusto ng capacity (TIBC), serum [address] [facility] (Lab), [address] [place], [address], 4 22:02:04 CBC w/ auto diff [address] [facility] (Lab), [address] [place], [address], 4 22:02:04 Referral None recorded. Procedures None recorded. Surgeries None recorded. Imaging MAMMO, diagnostic , digital, bilateral - Please call patient to schedule. 2024 025 [facility] (Mammography) , [address], [place], [address], 5 10:10:33 US, breast, bilateral - Please call patient to schedule. 2024 025 [facility] (Mammography) , [address], [place], [address], 5 10:10:33 CT, abdomen + pelvis, w/ contrast - Please call patient to schedule. [address] (Imaging), [address], [place], [address], 5 12:23:03 US, gallbladde r [email or web address] [place] [address] Center, [address], [place], [address], 4 10:12:14 Medication Orders Wegovy 0.25 mg/0.5 mL subcutaneo us pen injector 2024 025 [facility] #70462, [address], [place], [place], [id number], 5 09:07:33 zolpidem 10 mg tablet 2024 025 [facility] #80269, [address], [place], [place], [id number], 5 09:07:34 ondansetro n 4 mg disintegra ting tablet 2024 025 [facility] #05024, [address], [place], [place], [id number], 5 09:07:33 atomoxetin e 40 mg capsule 2024 025 [facility] #88641, [address], [place], [place], [id number], 5 09:07:32 zolpidem 5 mg tablet 2023 024 [facility] #72440, [address], [place], [place], [id number], 4 09:30:28 atomoxetin e 40 mg capsule 2023 024 [facility] #56086, [address] [facility], [place], [place], [id number], 4 09:30:27 ketoconazo le 2 % shampoo 2023 024 [facility] #69713, [address], [place], [place], [id number], 4 08:50:07 Wegovy 0.25 mg/0.5 mL subcutaneo us pen injector 2023 024 [facility] #40654, [address] [place], [place], [id number], 5 08:38:00 Qulipta 10 mg tablet 2023 024 PAYAL [facility] #10765, [address] [place], [place], [id number], 4 16:11:07 Patient TargetsNo targets recorded. Patient InstructionsNo instructions recorded. Reason for Referral None Reported. Results Created Date Observation Date Name Description Value Unit Range Abnormal Flag Note LastModifiedBy Organization Detail LastModifiedTime Result Notes None recorded. Problems Name Problem SNOMED Code Status Onset Date Resolution Date Notes Provider Name and Address Organization Details Recorded Time Mixed anxiety and depressive disorder 137043888 Active 2021 [facility] 3 23:59:51 Depressive disorder 00926525 Active 2020 Not Available [facility] 3 23:59:51 Chronic insomnia 993219813 Active 2023 Mark Burdick MD [address], [place] [address], [place], [address] , [employer] 4 16:58:49 Overweight 092443114 Active 2023 Mark Burdick MD [address], [address], [place], [address] , [employer] 4 17:04:53 History of obesity 169083507 Active 2023 Mark Burdick MD [address], [address], [place], [address] , [employer] [facility] [employer] 4 17:05:13 Mammography abnormal 193289743 Active 2023 Mark Burdick MD [address], [address], [place], [address] , [place] [facility] 4 10:45:55 Fatigue 04599347 Active 2023 VERNON Morgan [address], [address], [place], [address] , [place] [facility] 4 08:58:28 Migraine with aura 8163752 Active 2023 VERNON Morgan [address], [address], [place], [address] , [place] [facility] 4 09:01:46 Iron deficiency anemia 44269041 Active [address], [place], [address] , [place] [facility] 4 08:27:54 Vitamin D deficiency 25871638 Active [address], [place], [address] , [place] [facility] 4 08:17:54 Anemia 728725733 Active [address], [place], [address] , [place] [facility] 4 08:19:25 Right upper quadrant pain 688782065 Active [address], [place], [address] , [place] [facility] 4 08:42:17 Alopecia 90960135 Active 2023 VERNON Morgan [address], [address], [place], [address] , [place] [facility] 4 08:44:45 Attention deficit hyperactivity disorder 730073191 Active [address], [place], [address] , [facility] [employer] 4 09:23:16 Insomnia 095587814 Active 2023 VERNON Morgan [address] [facility], [place] [address], [place], [address] , [facility] [employer] [facility] [employer] 4 09:25:18 Cramp in lower limb 740577625 Active 2023 VERNON Morgan [address] [facility], [place] [address], [place], [address] , [employer] [facility] [employer] 4 09:30:36 Nausea 924478188 Active 2024 VERNON Morgan [address] [facility], [address], [address] , [employer] [facility] [employer] 5 09:00:11 Multiple joint pain 85289259 Active 2024 VERNON Morgan [address] [facility], [place] [address], [place], [address] , [employer] [facility] [employer] 5 09:01:02 Obese 982452374 Active 2024 VERNON Morgan [address] [address], [place], [address] , [employer] [facility] [employer] 5 09:15:36 Fear of medical treatment 160859351 Active 2024 VERNON Morgan [address], [address] , [employer] [facility] [employer] 5 16:33:15 Problem Notes None recorded. Procedures Surgical History Date Name Laterality Status Provider Name and Address Organization Details Recorded Time 4 Date of Last Pap Smear completed Magdalena Arreguin RN [facility] [employer] 03/04/2024 08:49:47 4 Most Recent Mammogram completed Magdalena Arreguin RN [facility] [employer] 03/04/2024 08:49:31 section completed Not Available [facility] 01/07/2023 23:58:58 extraction of wisdom tooth completed Not Available [facility] 01/07/2023 23:58:58 Ablation completed Not Available [facility] 23:58:58 cosmetic surgery completed Not Available [facility] 01/07/2023 23:58:58 Imaging Results None recorded. Procedure [...] Available Not Available zolpidem 5 mg tablet TAKE 1 TABLET BY MOUTH EVERY DAY NEEDED active Not Available Not Available No t Available ergocalcife rol (vitamin D2) 1,250 mcg (50,000 unit) capsule TAKE 1 CAPSULE BY MOUTH EVERY WEEK DIRECTED active Not Available Not Available No t Available hydroxychlo roquine 200 mg tablet Take 2 tablets every day by oral route. 10/21 completed Not Available Not Available Not Available zolpidem 10 mg tablet TAKE 1 TABLET BY MOUTH EVERY DAY NEEDED active Not Available Not Available No t Available doxycycline hyclate 20 mg tablet TAKE 1 TABLET BY MOUTH TWICE DAILY 06/13 completed Not Available Not Available Not Available clobetasol 0.05 % scalp solution APPLY THIN LAYER TOPICALLY TO THE AFFECTED AREA TWICE DAILY active Not Available Not Available No t Available ondansetron 4 mg disintegrat ing tablet PLACE 2 TABLETS ON THE TONGUE TWICE DAILY NEEDED FOR 30 DAYS active Not Available Not Available No t Available fluoxetine 20 mg capsule TAKE 1 CAPSULE BY MOUTH EVERY DAY 01/23 completed Not Available Not Available Not Available sertraline 50 mg tablet Take 1 tablet every day by oral route. 10/15 completed prn- Not Available Not Available Not Available diazepam 5 mg tablet Take 1 tablet twice a day by oral route as needed for 1 day. 2024 active Not Available Not Available Not Avai lable aripiprazol e 10 mg tablet TAKE 1 TABLET BY MOUTH EVERY NIGHT AT BEDTIME 01/23 completed Not Available Not Available Not Available atomoxetine 40 mg capsule TAKE 1 CAPSULE BY MOUTH EVERY DAY DIRECTED 2024 active Not Available Not Available Not Avai lable aripiprazol e 5 mg tablet TAKE 1 [...] 2.4 mg/0.75 mL subcutaneou s pen injector ADMINISTE R 2.4 MG UNDER THE SKIN EVERY WEEK DIRECTED active Not Available Not Available No t Available Wegovy 1.7 mg/0.75 mL subcutaneou s pen injector Inject by subcutane ous route for 28 days. 08/25 completed Not Available Not Available Not Available Wegovy 1 mg/0.5 mL subcutaneou s pen injector ADMINISTE R 0.5 ML UNDER THE SKIN EVERY WEEK FOR 56 DAYS 05/15 completed Not Available Not Available Not Available Wegovy 0.25 mg/0.5 mL subcutaneou s pen injector Inject 0.25 mg every week by subcutane ous route as directed for 28 days. active Not Available Not Available No t Available Wegovy 0.5 mg/0.5 mL subcutaneou s pen [...] Updated DateTime 4 160.02 cm 25.6 kg/m2 44088.7 g 98.1 [degF] 90 /min 99 % 99 % 20 /min 0 100 mm[Hg] 62 mm[Hg] Magdalena Arreguin RN [facility] [employer] [facility] 4 14:53:42 Date Recorded Body height Body mass index (BMI) Body weight Body temperature Heart rate Respiratory rate Oxygen saturation Oxygen saturation in Arterial blood by Pulse oximetry Pain severity - 0-10 verbal numeric rating [Score] - Reported Systolic blood pressure Diastolic blood pressure Provider Name and Address Organization Details Last Updated DateTime 4 160.02 cm 26.8 kg/m2 33949.2 5 g 97.4 [degF] 88 /min 20 /min 99 % 99 % 0 116 mm[Hg] 80 mm[Hg] Magdalena Arreguin RN [facility] [employer] [facility] 4 08:38:56 Date Recorded Body height Body mass index (BMI) Body weight Body temperature Heart rate Respiratory rate Oxygen saturation Oxygen saturation in Arterial blood by Pulse oximetry Pain severity - 0-10 verbal numeric rating [Score] - Reported Systolic blood pressure Diastolic blood pressure Provider Name and Address Organization Details Last Updated DateTime 4 160.02 cm 26.3 kg/m2 37496.8 2 g 97.4 [degF] 90 /min 20 /min 99 % 99 % 2 104 mm[Hg] 62 mm[Hg] Magdalena Arreguin RN [place] [facility] [employer] [facility] 4 09:03:08 Date Recorded Body height Body mass index (BMI) Body weight Body temperature Heart rate Respiratory rate Oxygen saturation Oxygen saturation in Arterial blood by Pulse oximetry Pain severity - 0-10 verbal numeric rating [Score] - Reported Systolic blood pressure Diastolic blood pressure Provider Name and Address Organization Details Last Updated DateTime 5 160.02 cm 28 kg/m2 12310.6 4 g 97.3 [degF] 66 /min 20 /min 99 % 99 % 0 108 mm[Hg] 62 mm[Hg] Magdalena Arreguin RN [place] [facility] [employer] [facility] 5 08:41:38 Social History Question Answer Notes LastModified by Organizat ion Details LastModified Time Tobacco Smoking Status Never Smoker Not Available [facility] 01/07/2023 23:58:29 Do You Have An Advance Directive? No [id number] Information not available 01/07/2023 What Is Your Level Of Alcohol Consumption? None [id number].[id number] Information not available 01/07/2023 Is Blood Transfusion Acceptable In An Emergency? Yes Information not available 01/23/2023 What Is Your Level Of Caffeine Consumption? None MIGRATION.09589 [id number] Information not available 01/07/2023 What Is Your Code Status? Full Code Information not available 01/23/2023 In The 14 Days Before Symptom Onset, Have You Had Close Contact With A Laboratory-confi rmed COVID-19 While That Case Was Ill? No MIGRATION.[id number] Information not available 01/07/2023 In The 14 Days Before Symptom Onset, Have You Had Close Contact With A Person Who Is Under Investigation For COVID-19 While That Person Was Ill? No MIGRATION.46448 22515 Information not available 01/07/2023 Are You Currently Employed? Yes Information not available 01/23/2023 What Type Of Diet Are You Following? REGULAR MIGRATION.22111 51675 Information not available 01/07/2023 What Is The Highest Grade Or Level Of School You Have Completed Or The Highest Degree You Have Received? 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 Unknown MIGRATION.[id number] [id number] Information not available 01/07/2023 Do You Use Insect Repellent Routinely? No MIGRATION.10718 01992 Information not available 01/07/2023 Where Do You Live? SingleLevelHouse MIGRATION.53794 64245 Information not available 01/07/2023 Do You Have A Medical Power Of Truck Driver Salesperson? No MIGRATION.99189 04137 Information not available 01/07/2023 How Many Children Do You Have? 1 Information not available 01/23/2023 Do You Have Any Pets? No MIGRATION.60428 82293 Information not available 01/07/2023 Do You Use Protection During Sex? No Information not available 01/23/2023 What Is Your Relationship Status? MIGRATION.11420 39677 Information not available 01/07/2023 Do You Use Your Seat Belt Or Car Seat Routinely? Yes MIGRATION.21216 28232 Information not available 01/07/2023 Are You Sexually Active? Yes Information not available 01/23/2023 Do You Have Smoke And Carbon Monoxide Detectors In Your Home? Yes MIGRATION.71218 44009 Information not available 01/07/2023 Are You Passively Exposed To Smoke? No MIGRATION.19111 32899 Information not available 01/07/2023 Are There Any Smokers In Your House? No MIGRATION.69919 79978 Information not available 01/07/2023 Do You Participate In Social Media? Yes Information not available 01/23/2023 What Types Of Sporting Activities Do You Participate In? Cardio, Stepper ,weight Lifting Information not available 08/25/2023 Do You Feel Stressed (tense, Restless, Nervous, Or Anxious, Or Unable To Sleep At Night)? [id number] MIGRATION.41092 39862 Information not available 01/07/2023 Do You Use Any Illicit Or Recreational Drugs? No Information not available 01/23/2023 Do You Use Sunscreen Routinely? No MIGRATION.53142 36555 Information not available 01/07/2023 Have You Recently Traveled Abroad? No MIGRATION.59461 28619 Information not available 01/07/2023 Are You Currently In School? No MIGRATION.81864 05289 Information not available 01/07/2023 Do You Have Any Dietary Restrictions? No MIGRATION.40763 09006 Information not available 01/07/2023 Do You Or [...] Father Family history of malignant neoplasm colon [email or web address] Not available 10/04 08:53:01 Paternal Grandfather Family history of malignant neoplasm [id number] Not available 10/04 08:53:01 Paternal Grandmother Family history of malignant neoplasm [email or web address] Not available 10/04 08:53:01 Maternal Grandmother Family history of malignant neoplasm [email or web address] Not available 10/04 08:53:01 Maternal Grandfather Myocardial infarction [id number] Not available 01/07/2023 23:59:00 Medical History Condition Response BLINDNESS N RHEUMATIC FEVER N KIDNEY STONES N BLADDER PROBLEMS N MRSA N OTHER # 1 N POLIO N LUNG DISEASE/DISORDER N HISTORY OF DRUG ABUSE N RADIATION / CHEMOTHERAPY N COPD N Other # 2 N BLOOD DISEASES N SURGERY N EAR OR HEARING PROBLEMS N MUMPS N SHINGLES N BOWEL PROBLEMS N FEMALE PROBLEMS / INFECTIONS N DEPRESSION (INCLUDING POST ) N STROKE/TIA N THYROID DISEASE N ULCERS N BENIGN PROSTATIC HYPERPLASIA N MEASLES N CERVICALGIA N HYPOTENSION N TB SKIN TEST N MYOCARDIAL INFARCTION N PARAPELGIA N OBESITY Y GERD/NAUSEA N ANEURYSM N URINARY/BLADDER/KIDNEY PROBLEMS N [...] HAVE YOU BEEN HOSPITALIZED OR SEEN IN PSYCHIATRIC IN THE PAST YEAR ? N ATHEROSCLEROSIS [...] PAIN N HERPES N DEMENTIA N HEADACHES/MIGRAINES Y SEIZURES/EPILEPSY N VASCULAR DISEASE N PACEMAKER N DIZZINESS Y HEART DISEASE/HEART PROBLEMS N KIDNEY DISEASE N DEVELOPMENTAL OR BEHAVIORAL DISORDERS N MULTIPLE SCLEROSIS N SCARLET FEVER N MENTAL DISORDER/ILLNESS N CARDIAC ARRHYTHMIA N CANCER: SPECIFY N PNEUMONIA N ATRIAL FIBRILLATION N Gall Stones N PULMONARY EMBOLISM N AUTOIMMUNE DISEASE N Gynecological History Statement/Question Response Abnormal Pap N Flow Heavy Date of LMP 12/06/2024 STIs/STDs N Dislike of Light during Menstrual [...] Immunizations Vaccine Type Date Status Note Provider Jung perez and Address Organization Details Recorded Time Influenza, split virus, quadrivalent, PF 08/25/2023 completed Magdalena Arreguin RN null, [place] [facility] [place] [facility] [employer] 08/25/2023 11:32:21 Influenza, split virus, trivalent, PF 10/05/2024 completed Magdalena Arreguin RN null, [place] [facility] 10/05/2024 09:31:35 Past Encounters Encounter ID Performer Location Encounter Start Date Encounter Closed Date Diagnosis/Indication Diagnosis SNOMED-CT Code Diagnosis ICD10 Code Diagnosis Note [id number] [facility] [place] [address] [place] [id number] 1 09/12/2021 00:00:00 09/12/2021 16:17:11 [id number] [facility] [place] [address] [place] [id number] 1 10/15/2021 00:00:00 10/15/2021 12:23:48 [id number] [facility] [place] [address] [place] [address] 1 11/13/2021 00:00:00 11/13/2021 16:45:31 [id number] [facility] [address] [place] [id number] 1 04/15/2022 00:00:00 04/15/2022 18:14:56 [id number] [facility] [address] [place] [address] 1 06/11/2022 00:00:00 06/11/2022 16:45:37 [id number] [facility] [address] [place] [id number] 1 10/21/2022 00:00:00 10/21/2022 18:04:32 [id number] [facility] [place] [address] [place] [id number] 1 10/30/2022 00:00:00 10/30/2022 16:43:14 [id number] Magdalena Quintero NP [facility] [address] [place] [id number] 1 01/23/2023 08:56:16 01/23/2023 09:36:16 Mixed anxiety and depressive disorder 669512850 F41.8 Trazodone nightly working. Obese 143029861 E66.9 Failed phentermin e, contrave, orlistat ( overseas), Qsymia, topiramate . Patient believes she has tried all steps to get through what is needed for approval of wegovy. [id number] Magdalena Quintero NP [place] [address] 1 03/17/2023 17:42:15 03/18/2023 08:58:46 Obese 468546087 E66.9 Failed phentermin e, contrave, orlistat ( overseas), Qsymia, topiramate . Patient believes she has tried all steps to get through what is needed for approval of wegovy. 03/17/23 Wegovy 1 mg for 4 weeks and then to 1.7 mg weekly. [id number] Magdalena Quintero NP [place] [address] 1 05/15/2023 10:59:50 05/15/2023 11:52:55 Obese 425912490 E66.9 Failed phentermin e, contrave, orlistat ( overse), Qsymia, topiramate . Patient believes she has tried all steps to get through what is needed for approval of wegovy. 03/17/23 Wegovy 1 mg for 4 weeks and then to 1.7 mg weekly. Insomnia 412963623 G47.0 0 Trazodone prn sleep. [id number] Magdalena Quintero NP [place] [address] 1 08/25/2023 10:46:38 08/25/2023 11:33:18 Insomnia 259656938 G47.00 Trazodone prn sleep. Obese 175447406 E66.9 Failed phentermin e, contrave, orlistat ( overseas), Qsymia, topiramate . Patient believes she has tried all steps to get through what is needed for approval of wegovy. 03/17/23 Wegovy 1 mg for 4 weeks and then to 1.7 mg weekly. wegovy 2.4 mg weekly. Down another 20 lbs today. Increased belching 40315 005 R14.2 sulfur odor- take famotidine or prilosec otc prn. Change diet to remove garlic. Administra tion of influenza vaccine 58539811 Z23 Flu shot given 08/25/23 [id number] Mark Burdick MD [address] [address] 08/31/2023 12:26:13 08/31/2023 14:47:21 [id number] Mark Burdick MD [place] [id number] 11/23/2023 16:44:19 11/23/2023 17:21:55 Chronic insomnia 474216873 F51.04 Obese 108992875 E66.9 Overweight 591483389 E66 .3 History of obesity 55061 3001 Z91.89 [id number] Mark Burdick MD [address] [address] 12/24/2023 08:59:31 12/24/2023 09:26:01 Adult health examination 651446682 Z00.00 Overweight 558303539 E66 .3 History of obesity 92737 3001 Z91.89 Screening for disorder 144899779 Z13.9 [id number] VERNON Morgan [address] [address] 03/04/2024 08:30:51 03/04/2024 09:27:33 Fatigue 77280520 R53.83 Migraine with aura 47710 06 G43.109 Obese 541377190 E66.9 [id number] VERNON Morgan [address] [address] 06/13/2024 14:38:31 06/13/2024 15:36:56 Iron deficiency anemia 77244115 D50.9 Migraine with aura 58686 06 G43.109 Patient has failed amitripyli ne and topiramate . Unable to take propranolo l due to BP Fatigue 46645318 R53.83 [id number] VERNON Morgan [address] [address] 06/20/2024 08:56:20 06/20/2024 11:16:06 [id number] [address] [address] 08/18/2024 08:32:19 08/18/2024 08:54:06 Right upper quadrant pain 734070894 R10.11 Overweight 609133026 E66 .3 Alopecia 67915278 L65.9 [id number] VERNON Morgan [address] [address] 10/04/2024 08:52:29 10/04/2024 09:33:35 Attention deficit hyperactivity disorder 097798800 F90.9 Insomnia 780872684 F51.0 1 Administra tion of influenza vaccine 86990756 Z23 Cramp in lower limb 4499 60202 R25.2 Advised to add OTC Magnesium [id number] VERNON Morgan [address] [address] 12/27/2024 08:30:20 12/27/2024 09:19:02 Adult health examination 177019432 Z00.00 patient is in overall fair health - anemia is the largest persistent issueHealt h maintance reviewedDi et and exercise reviewedAl l patient questions answered Anemia 728618351 D64.9 Recent blood transfusio n at [facility] s seen hematology , feels they are not investigat ing Insomnia 110658741 F51.0 1 Well controlled Obese 726555604 E66.9 Well controlled Nausea 904707409 R11.0 idiopathic , persistent Multiple joint pain 3567 8005 M25.50 with associated muscle weakness Hepatitis C screening 41 3441101 Z11.59 Liver as possible anemia issue? Attention deficit hyperactivity disorder 288470193 F90.9 Well controlled Mammography abnormal 168 632549 R92.8 01/12/24 notes cysts, recommende d 6 month FU with diagnositi c mammo and US Hyperlipid emia screening 600040012 Z13.220 Diabetes m ellitus screening 656395142 Z13.1 Health Concerns Section Related Observation LastModified by Organization Detai ls LastModified Time None Recorded Concern Status LastModified by Organization Details LastModified Time None Recorded Advance Directives Directive N: Payers Encounter Date Sequence Insurance Name Policy Number Policy Saab Covered Member ID Saab Member ID Guarantor Name 06/13/2024 1 EAST - DOS PRIOR TO 2024 - HUMANA () Antwan Green [id number] Chioma Green 06/20/2024 1 EAST - DOS PRIOR TO 2024 - HUMANA () Antwan Green [id number] Chioma Green 08/18/2024 1 EAST - DOS PRIOR TO 2024 - HUMANA () Antwan Green [id number] Chioma Green 10/04/2024 1 EAST - DOS PRIOR TO 2024 - HUMANA () Antwan Green [id number] Chioma Green 12/27/2024 1 WEST - TRIWEST () Chioma Green [id number] Chioma Green Notes Date Note Type Note Provider Name and Address Organization Details Recorded Time 06/13/2024 text/html Chioma Kline is a 44 year old Dizziness, fatigue, eating 10 pounds of ice weekly. States she was diagnosed with hemolytic anemia when she was living in [place], had iron infusions then but hasn't since she's lived here. Annmarie Montes De Oca, [facility] [address] [facility], [facility] [address], [place], [address], [facility] [employer] 06/13/2024 15:36:46 08/18/2024 text/html Chioma Kline is a 44 year old female patient here today for stomach concerns She notes that after she eats, she will have RUQ stabbing stomach pains, cramping, and bloating. States this will subside when she fasts but comes back as soon as she eats. She would like to restart Wegovy She has alopecia, previously managed by derm. Tableau Developer she was seeing is no longer seeing her, she has asked that I take over her ketoconazole shampoo. VERNON Morgan [address], [address], [place], [address], [employer] 08/18/2024 08:51:17 10/04/2024 text/html Chioma Kline is [...] anymore. Concerns with muscle cramps VERNON Morgan [address], [address], [place], [address], [employer] 10/04/2024 09:32:07 12/27/2024 text/html Annual Wellness and ER FU Was in [facility] for anemia, hemoglobin was 4.7 at hematology visit. Was given 2 units of blood. Persistent severe anemia. No known cause. Has seen hematology. Is taking ferrous sulfate Concerns with occasional chest pain, notes winded easily when walking. Notes her body is easily fatigued, will have myalgias and arthropathy Migraines well controlled with Qulipta ADHD, managed well with atomoxetine Insomnia, controlled with zolpidem, states she could benefit from a higher dose Flu shot: 10/05/2024OVID vaccines: declinesTdap: 2022Mammogram: 01/12/2024, abnormalColonoscopy /EGD: 08/2024WWE: 2023 with VERNON Olmos [address], [address], [place], [address], [employer] 12/27/2024 09:16:56 OBGyn Episode No OBEpisode recorded.
== END 2025-02-13 07:04 | disposition home or self-care (01) ==
DX: R93.5 Abnormal findings on diagnostic imaging of other abdominal regions, including retroperitoneum (principal); D64.9 Anemia, unspecified
CPT/HCPCS: 74177; Q9967

== ENCOUNTER 2025-03-23 07:15 | Outpatient (RCR) | payer OTHER, SELFPAY ==
[2025-03-23] VITALS (7 sets, daily range): BP systolic 104–117; BP diastolic 60–77; PULSE 83–100; RESP 18; TEMP 36.4–36.8; O2SAT 100
[2025-03-23] MEDS: ACETAMINOPHEN 325 MG TABLET 650 MG PO (07:50)
[2025-03-23] MEDS: diphenhydrAMINE HCl CAP 25 MG CAPSULE PO (07:51)
[2025-03-23] MEDS: FUROSEMIDE INJ 40 MG/4 ML VIAL 20 MG IV PUSH (10:10)
== END 2025-04-14 11:37 | disposition home or self-care (01) ==
LOC: ANHCPCTRAN 07:15
PROVIDERS: Visit Provider Internal Medicine Hematology & Oncology
DX: D64.89 Other specified anemias (principal)
CPT/HCPCS: 36415; 36430; 86850; 86880; 86900; 86901; 86902; 86922; 96374; A9270; J1938; P9016

== ENCOUNTER 2025-03-28 06:57 | Outpatient (CLI) | payer OTHER, SELFPAY ==
--- NOTE | ~2025-03-28 | US_ITS ---
EXAMINATION: US pelvic complete w TV INDICATION: Pelvic pain. Menorrhagia. Comparison:Ultrasound dated 02/29/2024 TECHNIQUE: Multiple transabdominal and endovaginal sonographic images of the pelvis performed. FINDINGS: The uterus measures 10 x 5.3 x 5.8 cm. Myometrium is somewhat heterogeneous, although no di screte mass identified. There are multiple nabothian cysts. The endometrial complex measures 17 mm. Right ovary measures 3.7 x 2.2 x 2.3 cm. Left ovary measures 4.9 x 2.4 x 3 cm. There are small left a dnexal cyst measuring 2 cm which is simple, likely exophytic or paraovarian. Trace fluid in the cervi x. There is no free fluid in the pelvis. There are no abnormal masses seen on either side. IMPRESSION: 1. Enlarged uterus with endometrial thickening. 2: Left adnexal simple cyst measuring 2 cm, likely benign exophytic ovarian or paraovarian cyst. Reviewed, dictated and finalized at location B.
--- NOTE | ~2025-03-28 | XR_ITS ---
CHEST RADIOGRAPH, PA AND LATERAL CLINICAL HISTORY: SHORTNESS OF BREATH,PELVIC PAIN, SOB X 2 MON. . COMPARISON: 06/13/2024 TECHNIQUE: PA and lateral views of the chest. FINDINGS The cardiomediastinal silhouette is unremarkable. The lungs are clear. Visualized osseous structures and soft tissues are unremarkable. IMPRESSION: No focal infiltrate or effusion. Reviewed, dictated and finalized at location A.
--- OUTSIDE RECORDS SUMMARY | 2025-03-28 07:07 | XMS_ITS | Data Portability ---
Author Organization [employer], Main Office Address [address] [place] [address] Care Team Providers Care Lna Name Role Phone MARK BURDICK Primary Care Provider Assessment No assessment recorded. Plan of Treatment Reminders Order Date Submit Date Provider Last Modified By Organization Details Last Modified Time Details Appointments None recorded. Lab lipid panel, serum [address] (Lab), [address] [place], [address], 5 07:55:33 CMP, serum or plasma [address] (Lab), [address] [place], [address], 5 07:55:33 CBC w/ auto diff [address] (Lab), [address] [place], [address], 5 07:55:32 iron + total iron-bindin g capacity (TIBC), serum [address] (Lab), [address] [place], [address], 5 07:55:32 reticulocyt e count, auto, blood [address] (Lab), [address] [place], [address], 5 07:55:33 TSH, serum or plasma [address] (Lab), [address] [place], [address], 5 07:55:33 POONAM (antinuclea r antibodies) screen, serum 2024 025 [facility] (Lab), [address] [place], [address], 5 10:26:02 rf (rheumatoid factor), serum [address] (Lab), [address] [place], [address], 5 07:55:33 C-reactive protein, quantitativ e, serum or plasma [address] (Lab), [address] [place], [address], 5 07:55:33 glycohemogl obin, total, blood [address] (Lab), [address] [place], [address], 5 07:55:33 hepatitis C virus Ab, serum [address] (Lab), [address] [place], [address], 5 07:55:33 Referral None recorded. Procedures None recorded. Surgeries None recorded. Imaging XR, chest, 2 view [address] [place] [address] Center, [address], [address], 5 09:16:53 MAMMO, diagnostic, digital, bilateral - Please call patient to schedule. [address] (Mammography) , [address], [place], [address], 5 15:51:31 US, breast, bilateral - Please call patient to schedule. [address] (Mammography) , [address], [place], [address], 5 15:51:31 CT, abdomen + pelvis, w/ contrast - Please call patient to schedule. [address] (Imaging), [address], [place], [address], 5 12:23:03 US, gallbladder 2023 [email or web address] [place] [address] Imaging Center, [address], [place], [address], 4 10:12:14 Medication Orders Wegovy 0.25 mg/0.5 mL subcutaneou s pen injector 2024 025 [facility]167, [address] [place], [place], [id number], 5 08:39:35 zolpidem 10 mg tablet 2024 025 [place]19243, [address] [place], [place], [id number], 5 09:07:34 ondansetron 4 mg disintegrat ing tablet 2024 025 [facility], [address] [place], [place], [id number], 5 09:07:33 atomoxetine 40 mg capsule 2024 025 [facility]29589, [address] [facility], [place], [place], [id number], 5 09:07:32 zolpidem 5 mg tablet [address] [facility] #17556, [address] [facility], [place], [place], [id number], 5 08:39:39 atomoxetine 40 mg capsule 2023 [facility] #72133, [address] [facility], [place], [place], [id number], 4 09:30:27 ketoconazol e 2 % shampoo 2023 [facility] #24632, [address] [facility], [place], [place], [id number], 4 08:50:07 Wegovy 0.25 mg/0.5 mL subcutaneou s pen injector [address] [facility] #03394, [address] [facility], [place], [place], [id number], 5 08:39:35 Patient TargetsNo targets recorded. Patient InstructionsNo instructions recorded. Reason for Referral None Reported. Results Created Date Observation Date Name Description Value Unit Range Abnormal Flag Note LastModifiedBy Organization Detail LastModifiedTime 02/14/2002/13/2025 CT, abdom en + pelvi s, w/ contr ast No observ ation record ed. [facility] [address], [place], [address], 02/14/2025 11:18:11 Result Notes None recorded. Problems Name Problem SNOMED Code Status Onset Date Resolution Date Notes Provider Name and Address Organization Details Recorded Time Mixed anxiety and depressive disorder 026824664 Active 2021 Not [address] [facility] 3 23:59:51 Depressive disorder 51606388 Active [address] [facility] 3 23:59:51 Chronic insomnia 138248910 Active 2023 Mark Burdick MD [address], [place], [address] , [employer] 4 16:58:49 Overweight 059897467 Active 2023 Mark Burdick MD [address], [address], [place], [address] , [employer] 4 17:04:53 History of obesity 215359902 Active 2023 Mark Burdick MD [address], [address], [place], [address] , [employer] 4 17:05:13 Mammography abnormal 640030278 Active 2023 Mark Burdick MD [address], [address], [place], [address] , [employer] 4 10:45:55 Fatigue 22265306 Active 2023 VERNON Morgan [address], [place], [address] , [employer] 4 08:58:28 Migraine with aura 3179959 Active 2023 VERNON Morgan [address], [place], [address] , [employer] 4 09:01:46 Iron deficiency anemia 63486846 Active 2023 VERNON Morgan [address], [place], [address] , [employer] 4 08:27:54 Vitamin D deficiency 61479407 Active 2023 VERNON Morgan [address], [place], [address] , [employer] 4 08:17:54 Anemia 457892793 Active 2023 VERNON Morgan [address], [place], [address] , [employer] 4 08:19:25 Right upper quadrant pain 400571146 Active 2023 VERNON Morgan [address], [place], [address] , [employer] 4 08:42:17 Alopecia 59635638 Active 2023 VERNON Morgan [address], [place], [address] , [employer] 4 08:44:45 Attention deficit hyperactivity disorder 989641663 Active 2023 VERNON Morgan [address], [place], [address] , [employer] 4 09:23:16 Insomnia 998829984 Active 2023 VERNON Morgan [address], [place], [address] , [employer] 4 09:25:18 Cramp in lower limb 269324360 Active 2023 VERNON Morgan [address], [place], [address] , [employer] 4 09:30:36 Nausea 463736614 Active 2024 VERNON Morgan [address], [place], [address] , [place] [facility] [employer] 5 09:00:11 Pain of multiple joints 99724395 Active 2024 VERNON Morgan [address], [place], [address] , [facility] [employer] [facility] 5 09:01:02 Obese 854760512 Active 2024 VERNON Morgan [address], [place], [address] , [facility] [employer] [facility] 5 09:15:36 Fear of medical treatment 712301661 Active 2024 VERNON Morgan [address] [facility], [place], [address] , [facility] [employer] [facility] 5 16:33:15 Dyspnea on exertion 97469155 Active 2024 VERNON Morgan [address] [facility], [place], [address] , [facility] [employer] 5 08:47:55 Problem Notes None recorded. Procedures Surgical History Date Name Laterality Status Provider Name and Address Organization Details Recorded Time 4 Date of Last Pap Smear completed Magdalena Arreguin RN [facility] [employer] [facility] 03/04/2024 08:49:47 4 Most Recent Mammogram completed Magdalena Arreguin RN [facility] [employer] [facility] 03/04/2024 08:49:31 section completed Not Available [facility] 01/07/2023 23:58:58 extraction of wisdom tooth completed Not Available [facility] 01/07/2023 23:58:58 Ablation completed Not Available [facility] 23:58:58 cosmetic surgery completed Not Available [facility] 01/07/2023 23:58:58 Imaging Results Imaging Date Name Status LastModified by Brittny wilson Details LastModified Time 02/13/2025 CT, abdomen + pelvis, w/ contrast completed [place] [address] [facility] [address], [place], [address], 02/14/2025 11:18:11 Procedure Notes None recorded. Medical Equipment None [...] 1 TABLET BY MOUTH EVERY DAY NEEDED 03/24 completed Not Available Not Available Not Available ergocalcife rol (vitamin D2) 1,250 mcg [...] Available Not Available diazepam 5 mg tablet TAKE 1 TABLET BY MOUTH TWICE DAILY FOR 1 DAY NEEDED active Not Available Not Available No t Available aripiprazol e 10 mg tablet TAKE 1 TABLET BY MOUTH EVERY NIGHT AT BEDTIME 01/23 completed Not Available Not Available Not Available atomoxetine 40 mg capsule TAKE 1 CAPSULE BY MOUTH EVERY DAY DIRECTED active Not Available Not Available No [...] 2.4 MG UNDER THE SKIN EVERY WEEK active Not Available Not Available No t [...] ous route as directed for 28 days. 03/24 completed Not Available Not Available Not Available Wegovy 0.5 mg/0.5 mL subcutaneou s [...] saturation in Arterial blood by Pulse oximetry Systolic blood pressure Diastolic blood pressure Provider Name and Address Organization Details Last Updated DateTime 4 160.02 cm 26.8 kg/m2 76496.2 5 g 97.4 [degF] 88 /min 20 /min 99 % 99 % 116 mm[Hg] 80 mm[Hg] Magdalena Arreguin RN [facility] [employer] [facility] 4 08:38:56 Date Recorded Body height Body mass index (BMI) Body weight Body temperature Heart rate Respiratory rate Oxygen saturation Oxygen saturation in Arterial blood by Pulse oximetry Systolic blood pressure Diastolic blood pressure Provider Name and Address Organization Details Last Updated DateTime 4 160.02 cm 26.3 kg/m2 66373.8 2 g 97.4 [degF] 90 /min 20 /min 99 % 99 % 104 mm[Hg] 62 mm[Hg] Magdalena Arreguin RN [facility] [employer] [facility] 4 09:03:08 Date Recorded Body height Body mass index (BMI) Body weight Body temperature Heart rate Respiratory rate Oxygen saturation Oxygen saturation in Arterial blood by Pulse oximetry Systolic blood pressure Diastolic blood pressure Provider Name and Address Organization Details Last Updated DateTime 5 160.02 cm 28 kg/m2 93215.6 4 g 97.3 [degF] 66 /min 20 /min 99 % 99 % 108 mm[Hg] 62 mm[Hg] Magdalena Arreguin RN [facility] [employer] [facility] 5 08:41:38 Date Recorded Body height Body mass index (BMI) Body weight Body temperature Heart rate Respiratory rate Oxygen saturation Oxygen saturation in Arterial blood by Pulse oximetry Systolic blood pressure Diastolic blood pressure Provider Name and Address Organization Details Last Updated DateTime 5 160.02 cm 26.7 kg/m2 90055.4 5 g 97.8 [degF] 90 /min 20 /min 99 % 99 % 120 mm[Hg] 82 mm[Hg] Magdalena Arreguin RN [facility] [employer] [facility] 5 08:42:56 Social History Question Answer Notes LastModified by Organizat ion Details LastModified Time Tobacco Smoking Status Never Smoker Not Available [facility] 01/07/2023 23:58:29 Do You Have An Advance Directive? No [id number] Information not available 01/07/2023 Is Blood Transfusion Acceptable In An Emergency? Yes Information not available 01/23/2023 What Is Your Level Of Caffeine Consumption? None MIGRATION.34546 68670 Information not available 01/07/2023 What Is Your Code Status? Full Code Information not available 01/23/2023 In The 14 Days Before Symptom Onset, Have You Had Close Contact With A Laboratory-confi rmed COVID-19 While That Case Was Ill? No MIGRATION.[id number] [id number] Information not available 01/07/2023 In The 14 Days Before Symptom Onset, Have You Had Close Contact With A Person Who Is Under Investigation For COVID-19 While That Person Was Ill? No MIGRATION.80223 92295 Information not available 01/07/2023 What Type Of Diet Are You Following? REGULAR MIGRATION.70425 43458 Information not available 01/07/2023 What Is The Highest Grade Or Level Of School You Have Completed Or The Highest Degree You Have Received? GT70043-8 MIGRATION.41321 24992 Information not available 01/07/2023 How Many Days Of Moderate To Strenuous [...] The Fluoride Status Of Your Home? Unknown MIGRATION.[id number] 51238 Information not available 01/07/2023 Do You Use Insect Repellent Routinely? No MIGRATION.73287 93207 Information not available 01/07/2023 Where Do You Live? SingleLevelHouse MIGRATION.79753 63311 Information not available 01/07/2023 Do You Have A Medical Power Of Dough Maker? No MIGRATION.34445 30584 Information not available 01/07/2023 How Many Children Do You Have? 1 Information not available 01/23/2023 Do You Have Any Pets? No MIGRATION.11175 15859 Information not available 01/07/2023 Do You Use Protection During Sex? No Information not available 01/23/2023 What Is Your Relationship Status? MIGRATION.45691 24960 Information not available 01/07/2023 Do You Use Your Seat Belt Or Car Seat Routinely? Yes MIGRATION.38442 40182 Information not available 01/07/2023 Are You Sexually Active? Yes Information not available 01/23/2023 Do You Have Smoke And Carbon Monoxide Detectors In Your Home? Yes MIGRATION.09099 97471 Information not available 01/07/2023 Are You Passively Exposed To Smoke? No MIGRATION.61282 92539 Information not available 01/07/2023 Are There Any Smokers In Your House? No MIGRATION.38430 24572 Information not available 01/07/2023 Do You Participate In Social Media? Yes Information not available 01/23/2023 What Types Of Sporting Activities Do You Participate In? Cardio, Stepper ,weight Lifting Information not available 08/25/2023 Do You Use Sunscreen Routinely? No MIGRATION.07764 44315 Information not available 01/07/2023 Have You Recently Traveled Abroad? No MIGRATION.64899 61317 Information not available 01/07/2023 Are You Currently In School? No MIGRATION.71300 32903 Information not available 01/07/2023 Do You Have Any Dietary Restrictions? No MIGRATION.06770 03989 Information not available 01/07/2023 Sex: Unknown Functional Status Question Answer Note LastModified by Organizat ion Details LastModified Time Do you use any illicit or recreational drugs? No Information not available 01/23/2023 Do you or have you ever used any other forms of tobacco or nicotine? No Information not available 01/23/2023 What is your level of alcohol consumption? None [id number] Information not available 01/07/2023 Are you currently employed? Yes Information not available 01/23/2023 What is your occupation? [employer] Information not available 03/17/2023 What is your exercise level? Moderate Information not available 03/24/2025 Mental Status Question Answer Note LastModified by Organizat ion Details LastModified Time Do you feel stressed (tense, restless, nervous, or anxious, or unable to sleep at night)? PD1596-0 [id number] Information not available 01/07/2023 Family History Relationship Description Onset Age of this Age Resolved Age Notes LastModified by Organization Details LastModified Time Father Family history of malignant neoplasm colon [email or web address] Not available 10/04 08:53:01 Paternal Grandfather Family history of malignant neoplasm [email or web address] Not available 10/04 08:53:01 Paternal Grandmother Family history of malignant neoplasm [email or web address] Not available 10/04 08:53:01 Maternal Grandmother Family history of malignant neoplasm [email or web address] Not available 10/04 08:53:01 Maternal Grandfather Myocardial infarction [id number] Not available 01/07/2023 23:59:00 Medical History Condition Response BLINDNESS N RHEUMATIC FEVER N KIDNEY STONES N BLADDER PROBLEMS N MRSA N OTHER # 1 N POLIO N LUNG DISEASE/DISORDER N HISTORY OF DRUG ABUSE N RADIATION / CHEMOTHERAPY N COPD N Other # 2 N BLOOD DISEASES N SURGERY N EAR OR HEARING PROBLEMS N MUMPS N SHINGLES N FEMALE PROBLEMS / INFECTIONS N BOWEL PROBLEMS N DEPRESSION (INCLUDING POST ) N STROKE/TIA N THYROID DISEASE N ULCERS N BENIGN PROSTATIC HYPERPLASIA N MEASLES N CERVICALGIA N TB SKIN TEST N HYPOTENSION N MYOCARDIAL INFARCTION N PARAPELGIA N OBESITY [...] GLAUCOMA N FOOT PROBLEM N DIVERTICULITIS N SLEEP APNEA N CHICKENPOX N ALLERGIES/HAYFEVER N INFECTIOUS DISEASE N PROSTATE N HEART ARRHYTHMIA N INSOMNIA Y HIGH CHOLESTEROL / HYPERLIPIDEMIA N EYE PROBLEMS N HYPERTHYROIDISM N EATING DISORDER N EDEMA N CHRONIC PAIN SYNDROME N CONSTIPATION N CAROTID BLOCKAGE N BACK / NECK PROBLEMS N HAVE YOU BEEN HOSPITALIZED OR SEEN IN [facility] IN THE PAST YEAR ? [...] DISORDER N ALZHEIMER'S DISEASE N PAIN N DEMENTIA N HERPES N SEIZURES/EPILEPSY N HEADACHES/MIGRAINES Y VASCULAR DISEASE N PACEMAKER N DIZZINESS Y HEART DISEASE/HEART PROBLEMS N KIDNEY DISEASE N SCARLET FEVER N MULTIPLE SCLEROSIS N DEVELOPMENTAL OR BEHAVIORAL DISORDERS N MENTAL DISORDER/ILLNESS N CANCER: SPECIFY N CARDIAC ARRHYTHMIA N PNEUMONIA N ATRIAL FIBRILLATION N Gall Stones N PULMONARY EMBOLISM N AUTOIMMUNE DISEASE N Gynecological History Statement/Question Response Abnormal Pap N Flow Heavy Date of LMP 02/11/2025 STIs/STDs N Dislike of Light during Menstrual [...] virus, quadrivalent, PF 08/25/2023 completed REID Mitchell, [facility] [employer] 08/25/2023 11:32:21 Influenza, split virus, trivalent, PF 10/05/2024 completed REID Mitchell, [facility] [employer] [facility] 10/05/2024 09:31:35 Past Encounters Encounter ID Performer Location Encounter Start Date Encounter Closed Date Diagnosis/Indication Diagnosis SNOMED-CT Code Diagnosis ICD10 Code Diagnosis Note [id number] Mark Burdick MD [address] [address] 09/12/2021 00:00:00 09/12/2021 16:17:11 [id number] Mark Burdick MD [address] [address] 10/15/2021 00:00:00 10/15/2021 12:23:48 [id number] Mark Burdick MD [facility] [address] [place], [place] [address] [place] [address] 11/13/2021 00:00:00 11/13/2021 16:45:31 [id number] Mark Burdick MD [facility] [address] [place] [address] 04/15/2022 00:00:00 04/15/2022 18:14:56 [id number] [facility] [address] [place] [address] 06/11/2022 00:00:00 06/11/2022 16:45:37 [id number] Mark Burdick MD [address] [address] 10/21/2022 00:00:00 10/21/2022 18:04:32 [id number] Mark Burdick MD [facility] [address] [place] [address] 10/30/2022 00:00:00 10/30/2022 16:43:14 [id number] Magdalena Quintero NP [address] [address] 01/23/2023 08:56:16 01/23/2023 09:36:16 Mixed anxiety and depressive disorder 581513451 F41.8 Trazodone nightly working. Obese 948618865 E66.9 Failed phentermin e, contrave, orlistat ( overseas), Qsymia, topiramate . Patient believes she has tried all steps to get through what is needed for approval of wegovy. [id number] Magdalena Quintero NP [address] [address] 03/17/2023 17:42:15 03/18/2023 08:58:46 Obese 892823109 E66.9 Failed phentermin e, contrave, orlistat ( overseas), Qsymia, topiramate . Patient believes she has tried all steps to get through what is needed for approval of wegovy. 03/17/23 Wegovy 1 mg for 4 weeks and then to 1.7 mg weekly. [id number] Magdalena Quintero NP [place] [address] 1 05/15/2023 10:59:50 05/15/2023 11:52:55 Obese 169112678 E66.9 Failed phentermin e, contrave, orlistat ( overseas), Qsymia, topiramate . Patient believes she has tried all steps to get through what is needed for approval of wegovy. 03/17/23 Wegovy 1 mg for 4 weeks and then to 1.7 mg weekly. Insomnia 493308254 G47.0 0 Trazodone prn sleep. [id number] Magdalena Quintero NP [place] [address] 1 08/25/2023 10:46:38 08/25/2023 11:33:18 Insomnia 947450997 G47.00 Trazodone prn sleep. Obese 319070057 E66.9 Failed phentermin e, contrave, orlistat ( overseas), Qsymia, topiramate . Patient believes she has tried all steps to get through what is needed for approval of wegovy. 03/17/23 Wegovy 1 mg for 4 weeks and then to 1.7 mg weekly. wegovy 2.4 mg weekly. Down another 20 lbs today. Increased belching 11748 005 R14.2 sulfur odor- take famotidine or prilosec otc prn. Change diet to remove garlic. Administra tion of influenza vaccine 41885554 Z23 Flu shot given 08/25/23 [id number] Mark Burdick MD [address] [address] 08/31/2023 12:26:13 08/31/2023 14:47:21 [id number] Mark Burdick MD [address] [address] 11/23/2023 16:44:19 11/23/2023 17:21:55 Chronic insomnia 612930725 F51.04 Obese 127479883 E66.9 Overweight 230397620 E66 .3 History of obesity 75343 3001 Z91.89 [id number] Mark Burdick MD [address] [address] 12/24/2023 08:59:31 12/24/2023 09:26:01 Adult health examination 784560276 Z00.00 Overweight 460869134 E66 .3 History of obesity 19772 3001 Z91.89 Screening for disorder 053377987 Z13.9 [id number] Mark Burdick MD [address] [address] 03/04/2024 08:30:51 03/04/2024 09:27:33 Fatigue 23608230 R53.83 Migraine with aura 67289 06 G43.109 Obese 691702907 E66.9 [id number] Mark Burdick MD [address] [address] 06/13/2024 14:38:31 06/13/2024 15:36:56 Iron deficiency anemia 96064242 D50.9 Migraine with aura 11027 06 G43.109 Patient has failed amitripyli ne and topiramate . Unable to take propranolo l due to BP Fatigue 58468832 R53.83 [id number] Mark Burdick MD [address] [address] 06/20/2024 08:56:20 06/20/2024 11:16:06 [id number] Mark Burdick MD [address] [address] 08/18/2024 08:32:19 08/18/2024 08:54:06 Right upper quadrant pain 450256881 R10.11 Overweight 050226854 E66 .3 Alopecia 98593147 L65.9 [id number] Mark Burdick MD [address] [address] 10/04/2024 08:52:29 10/04/2024 09:33:35 Attention deficit hyperactivity disorder 775518203 F90.9 Insomnia 870490247 F51.0 1 Administra tion of influenza vaccine 15614224 Z23 Cramp in lower limb 4499 48020 R25.2 Advised to add OTC Magnesium [id number] Mark Burdick MD [address] [address] 12/27/2024 08:30:20 12/27/2024 09:19:02 Adult health examination 685188551 Z00.00 patient is in overall fair health - anemia is the largest persistent issueHealt h maintance reviewedDi et and exercise reviewedAl l patient questions answered Anemia 084295763 D64.9 Recent blood transfusio n at [facility] seen hematology , feels they are not investigat ing Insomnia 454131842 F51.0 1 Well controlled Obese 362679905 E66.9 Well controlled Nausea 154815164 R11.0 idiopathic , persistent Pain of mu ltiple joints 78661477 M25.50 with associated muscle weakness Hepatitis C screening 41 5413417 Z11.59 Liver as possible anemia issue? Attention deficit hyperactivity disorder 263649856 F90.9 Well controlled Mammography abnormal 168 186705 R92.8 01/12/24 notes cysts, recommende d 6 month FU with diagnositi c mammo and US Hyperlipid emia screening 202995091 Z13.220 Diabetes m ellitus screening 842955692 Z13.1 [id number] VERNON Morgan [address] [address] 03/24/2025 08:31:08 03/24/2025 09:16:53 Dyspnea on exertion 12629744 R06.02 Likely related to anemia Anemia 119835284 D64.9 Recent blood transfusio n at [facility] s seen hematology , feels they are not investigat ing Attention deficit hyperactivity disorder 256146513 F90.9 Well controlled Health Concerns Section Related Observation LastModified by Organization Detai ls LastModified Time None Recorded Concern Status LastModified by Organization Details LastModified Time None Recorded Advance Directives Directive N: Payers Encounter Date Sequence Insurance Name Policy Number Policy Saab Covered Member ID Saab Member ID Guarantor Name 06/20/2024 1 [employer] () Antwan Green [id number] Chioma Green 08/18/2024 1 [employer] () Antwan Green [id number] Chioma Green 10/04/2024 1 [employer] () Antwan Green [id number] Chioma Green 12/27/2024 1 [employer] () Chioma Green [id number] Chioma Green 03/24/2025 1 [facility] () Chioma Green [phone] Chioma Green Notes Date Note Type Note Provider Name and Address Organization Details Recorded Time 08/18/2024 text/html Chioma Kline is a 44 year old female patient here today for stomach concerns She notes that after she eats, she will have RUQ stabbing stomach pains, cramping, and bloating. States this will subside when she fasts but comes back as soon as she eats. She would like to restart Wegovy She has alopecia, previously managed by derm. Boat Ride Operator she was seeing is no longer seeing her, she has asked that I take over her ketoconazole shampoo. Annmarie Montes De Oca, STRAIGHT EDGER [address] [facility], [facility] [address], [place], [address], [place] [facility] [employer] 08/18/2024 08:51:17 10/04/2024 text/html Chioma Kline is [...] Concerns with muscle cramps VERNON Morgan [address], [address] [facility] [facility] [employer], [place], [address], [facility] [employer] 10/04/2024 09:32:07 12/27/2024 text/html Annual Wellness and ER FU Was in [facility] for anemia, hemoglobin was 4.7 at hematology [...] benefit from a higher dose Flu shot: 4COVID vaccines: declinesTdap: 2022Mammogram: 01/12/2024, abnormalColonoscopy /EGD: 08/2024WWE: 2023 with VERNON Olmos [address], [place], [address], [facility] [employer] [facility] [employer] 12/27/2024 09:16:56 03/24/2025 text/html Chioma Kline is a 44 year old female patient here today for a 3 month FU. She has chronic anemia. She had an iron infusion yesterday. She states these are not effective anymore. She is also taking oral ironCT abd resulted several hepatic cysts, complex ovarian cyst, fibroidsHem wants her to have a hysterectomy but gyne will not do this due to her H&H being so low.Biggest concern is shortness of breath, malaiseShe has an appointment with a second hematology clinic in [place] is getting frustrated with lack of resolution She is taking atomoxetine for ADHD and feels this works well. VERNON Morgan [address], [place], [address], [place] [facility] 03/24/2025 09:12:21 OBGyn Episode No OBEpisode recorded.
--- OUTSIDE RECORDS SUMMARY | 2025-03-28 07:07 | XMS_ITS | Clinical Summary ---
Author Organization [facility] Lenore Leal Address [address] [place] [address] Care Team Providers Care Nurse Anesthetist Name Role Phone Mark Burdick MD Primary Care Provider [phone] Allergies No known active allergies Medications traZODone [...] Encounters Date Type Department Care Team Description 03/24/2025 1:15 PM CDT Office Visit [facility] Oncology and Hematology - [address] [place] [address] Alex Locke MD Chronic anemia (Primary Dx) 03/24/2025 Orders Only [facility] Oncology and Hematology - [address] [place] [address] Alex Locke MD 03/22/2025 Abstract [facility] Oncology and Hematology - [address] [place] [address] Alex Locke MD 03/17/2025 Orders Only [facility] Oncology and Hematology - [address] [place] [address] Alex Locke MD 03/01/2025 Orders Only [facility] Oncology and Hematology - [address] [place] [address] Alex Locke MD Chronic anemia (Primary Dx) 02/07/2025 Orders Only [facility] Oncology and Hematology - [address] [place] [address] Alex Locke MD 02/06/2025 Abstract [facility] Oncology and Hematology - [address] [place] [address] Alex Locke MD 01/25/2025 External Device Data STL ABSTRACTION Provider, Abstract 01/24/2025 4:00 PM CDT Telephone Check Up [facility] Oncology and Hematology - [address] [place] [address] Alex Locke MD 01/14/2025 External Device Data STL ABSTRACTION Provider, Abstract 01/14/2025 External Device Data STL ABSTRACTION Provider, Abstract 01/11/2025 External Device Data STL ABSTRACTION Provider, Abstract 01/10/2025 Abstract [facility] Oncology and Hematology - [address] [place] [address] Alex Locke MD 01/10/2025 Orders Only [facility] Oncology and Hematology - [address] [place] [address] Alex Locke MD 01/09/2025 11:00 AM INTERVENTIONAL NEURORADIOLOGIST Office Visit [facility] Oncology and Hematology - [address] [place] [address] Alex Locke MD Chronic anemia (Primary Dx) 01/04/2025 Orders Only [facility] Oncology and Hematology - [address] [place] [address] Alex Locke MD from Last 3 Months Family History Medical [...] Sign Reading Time Taken Comments Blood Pressure 117/73 03/24/2025 1:05 PM CDT Pulse 98 03/24/2025 1:05 PM CDT Temperature 36.2 C (97.1 F) 03/24/2025 1:05 PM CDT Respiratory Rate 16 03/24/2025 1:05 PM CDT Oxygen Saturation 98% 03/24/2025 1:05 PM CDT Inhaled Oxygen Concentration - - Weight 73.1 kg (161 lb 3.2 oz) 03/24/2025 1:05 P M CDT Height 160 cm (5' 3 ) 06/21/2024 10:56 AM CDT Body Mass Index 28.56 06/21/2024 10:56 AM CDT Plan of Treatment Upcoming Encounters Date Type Department Care Team (Late st Contact Info) Description 05/19/2025 8:30 AM CDT Office Visit [facility] Oncology and Hematology - [address] [place] [address] Alex Locke MD [address] [facility] [address] [place] [address] Health Maintenance Due Date Last Done Comments Pre-Diabetes and Diabetes Screening 1982 HEPATITIS B VACCINES (1 of 3 - 19+ 3-dose series) 2001 HPV/Cotest (21-29) 2003 HPV/Cotest (30-65) 2012 CERVICAL CANCER SCREENING 02/09/2022 PAP SMEAR 02/09/2022 02/09/2019 BREAST CANCER SCREENING 2022 COVID-19 Vaccine (3 - 2023- season) 2024 2021, 03/22/2021 DTAP/TDAP/TD VACCINES (2 - Td or Tdap) 10/14/2028 10/14/2018 INFLUENZA VACCINE Completed 10/05/2024, , 08/24/2020, Additional history exists HPV VACCINES Aged Out No longer eligi ble based on patient's age to complete this topic Procedures Procedure Name Priority Date/Time Associated Diagnosis Comments TYPE AND SCREEN Routine 03/22/2025 2:44 PM CDT CHG ANTIBODY SCREEN RBC EA SERUM Routine 02/06/2025 12:47 PM CDT CBC WITH AUTODIFFERENTIAL Routine 2024 12:05 PM CDT TRANSFERRIN RECEPTOR TFR SOLUBLE Routine 01/09/2025 1:47 PM INTERVENTIONAL NEURORADIOLOGIST COMPREHENSIVE METABOLIC PANEL Routine 01/09/2025 11:16 AM INTERVENTIONAL NEURORADIOLOGIST from Last 3 Months Results * TYPE AND SCREEN (03/22/2025 2:44 PM CDT) Blood us Alex Locke MD BLOOD BANK ORDERABLES Final Res ult * CHG ANTIBODY SCREEN RBC EA SERUM (02/06/2025 12:47 PM CDT) us Alex Locke MD CHG - LABORATORY Final Result * CBC WITH AUTODIFFERENTIAL (02/06/2025 12:05 PM CDT) Blood us Alex Locke MD HEMATOLOGY ORDERABLES Final Res ult * TRANSFERRIN RECEPTOR TFR SOLUBLE (01/09/2025 1:47 PM INTERVENTIONAL NEURORADIOLOGIST) Blood Alex Locke MD CHEMISTRY ORDERABLES Final Resu lt * COMPREHENSIVE METABOLIC PANEL (01/09/2025 11:16 AM INTERVENTIONAL NEURORADIOLOGIST) Blood Alex Locke MD CHEMISTRY ORDERABLES Final Resu lt from Last 3 Months Insurance [facility] Care Teams Nurse Anesthetist Relationship Specialty Start Date End Date Mark Burdick MD [address] [place] [address] PCP - General Family Practice 06/21/24
--- OUTSIDE RECORDS SUMMARY | 2025-03-28 07:07 | XMS_ITS | Encounter Summary ---
Author Organization [facility] [employer] [facility] Address [address] [place] [address] Care Team Providers Care Floor Tech Name Role Phone Mark Burdick MD Primary Care Provider [phone] Encounter Details Date Type Department Care Team (Late Contact Info) Description 03/24/2025 Orders Only [facility] Oncology and Hematology - [address] [place] [address] Alex Locke MD [address] [employer] [address] [place] [address] Social History Tobacco Use Types Packs/Day Years [...] Encounters Date Type Department Care Team (Late Contact Info) Description 05/19/2025 8:30 AM CDT Office Visit [facility] Oncology and Hematology - [address] [place] [address] Alex Locke MD [address] [employer] [address] [place] [address] documented as of this encounter Procedures Procedure Name Priority Date/Time Associated Diagnosis Comments TYPE AND SCREEN Routine 03/22/2025 2:44 PM CDT documented in this encounter Results * TYPE AND SCREEN (03/22/2025 2:44 PM CDT) Blood us Alex Locke MD BLOOD BANK ORDERABLES Final Res ult documented in this encounter Visit Diagnoses Not on filedocumented in this encounter Care Teams Floor Tech Relationship Specialty Start Date End Date Mark Burdick MD [address] [place] [address] PCP - General Family Practice 06/21/24 documented as of this encounter
== END 2025-03-28 06:58 | disposition home or self-care (01) ==
PROVIDERS: Visit Provider Nurse Practitioner
DX: R93.89 Abnormal findings on diagnostic imaging of other specified body structures (principal); N85.2 Hypertrophy of uterus; N83.202 Unspecified ovarian cyst, left side; R06.02 Shortness of breath
CPT/HCPCS: 71046; 76830; 76856

== ENCOUNTER 2025-04-17 07:33 | Outpatient (RCR) | payer OTHER, SELFPAY ==
[2025-04-17] VITALS (11 sets, daily range): BP systolic 103–119; BP diastolic 61–81; PULSE 83–90; RESP 16–18; TEMP 36.3–36.8; O2SAT 96–100
[2025-04-17 08:10] LABS: Hemoglobin 5.7 g/dL (12.0-15.0)
[2025-04-17 08:11] LABS: Hematocrit 19.9 % (37.0-47.0)
[2025-04-17] MEDS: diphenhydrAMINE HCl CAP 25 MG CAPSULE PO (08:35)
[2025-04-17] MEDS: SODIUM CHLORIDE 0.9% IV 250 ML 30 ML IV CONT (08:35)
[2025-04-17] MEDS: ACETAMINOPHEN 325 MG TABLET 650 MG PO (08:35)
[2025-04-17] MEDS: TUBING, BLOOD PLUM PUMP TUBING 1 EACH XX ×2 (08:36→11:11)
[2025-04-17] MEDS: FUROSEMIDE INJ 40 MG/4 ML VIAL 20 MG IV PUSH (11:10)
== END 2025-07-16 23:59 | disposition home or self-care (01) ==
LOC: ANHCPCTRAN 07:33
PROVIDERS: Visit Provider Internal Medicine Hematology & Oncology
DX: D64.9 Anemia, unspecified (principal)
CPT/HCPCS: 36415; 36430; 85014; 85018; 86850; 86880; 86900; 86901; 86902; 86922; 96374; A9270; J1938; J7050; P9016

== ENCOUNTER 2025-05-26 05:21 | Outpatient (CLI) | payer OTHER, SELFPAY ==
--- OUTSIDE RECORDS SUMMARY | 2025-05-26 05:41 | XMS_ITS | Data Portability ---
Author Organization [facility] [address], Main Office Address [address] [place] [address] Care Team Providers Care Batch Records Clerk Name Role Phone MARK BURDICK Primary Care Provider [phone] Assessment No assessment recorded. Plan of Treatment Reminders Order Date Submit Date Provider Last Modified By Organization Details Last Modified Time Details Appointments None recorded. Lab lipid panel, serum [address] (Lab), [address] [place], [address], 5 07:55:33 CMP, serum or plasma [address] (Lab), [address] [place], [address], 5 07:55:33 CBC w/ auto diff [address] (Lab), [address] [place], [address], 5 07:55:32 iron + total iron-bindin g capacity (TIBC), serum [address] (Lab), [address] [place], [address], 5 07:55:32 reticulocyt e count, auto, blood [address] (Lab), [address] [place], [address], 5 07:55:33 TSH, serum or plasma [address] (Lab), [address] [place], [address], 5 07:55:33 POONAM (antinuclea r antibodies) screen, serum 2024 025 [facility] (Lab), [address] [place], [address], 5 10:26:02 rf (rheumatoid factor), serum [address] (Lab), [address] [place], [address], 5 07:55:33 C-reactive protein, quantitativ e, serum or plasma [address] (Lab), [address] [place], [address], 5 07:55:33 glycohemogl obin, total, blood [address] (Lab), [address] [place], [address], 5 07:55:33 hepatitis C virus Ab, serum [address] (Lab), [address] [place], [address], 5 07:55:33 Referral None recorded. Procedures None recorded. Surgeries None recorded. Imaging XR, chest, 2 view 2024 025 [facility], [address], [address], 5 15:11:51 MAMMO, diagnostic, digital, bilateral - Please call patient to schedule. [address] (Mammography) , [address], [place], [address], 5 15:51:31 US, breast, bilateral - Please call patient to schedule. [address] (Mammography) , [address], [place], [address], 5 15:51:31 CT, abdomen + pelvis, w/ contrast - Please call patient to schedule. [address] (Imaging), [address], [place], [address], 5 12:23:03 US, gallbladder [email or web address] [place] [address] Imaging Center, [address], [place], [address], 4 10:12:14 Medication Orders Wegovy 0.25 mg/0.5 mL subcutaneou s pen injector 2024 025 BALD KNOB [facility], [facility], [address], [place], [address], 5 09:13:12 Qulipta 30 mg tablet [address], [address] [place], [place], [id number], 5 10:06:29 citalopram 10 mg tablet 2024 025 BALD KNOB [facility], [address] [place], [id number], 5 09:13:24 atomoxetine 40 mg capsule 2024 025 [facility] #59734, [address] [facility], [place], [place], [id number], 5 09:13:29 Wegovy 0.25 mg/0.5 mL subcutaneou s pen injector [address] [facility]75019, [address] [facility], [place], [place], [id number], 5 08:39:35 zolpidem 10 mg tablet 2024 025 [facility], [address] [facility], [place], [place], [id number], 5 09:07:34 ondansetron 4 mg disintegrat ing tablet 2024 025 [facility], [address] [facility], [place], [place], [id number], 5 09:07:33 atomoxetine 40 mg capsule 2024 025 [facility], [address] [facility], [place], [place], [id number], 5 09:07:32 zolpidem 5 mg tablet 2023 024 [address] [facility], [address] [facility], [place], [place], [id number], 5 08:39:39 atomoxetine 40 mg capsule 2023 024 [facility], [address] [facility], [place], [place], [id number], 4 09:30:27 ketoconazol e 2 % shampoo 2023 [facility] #04185, [address] [place], [place], [id number], 4 08:50:07 Wegovy 0.25 mg/0.5 mL subcutaneou s pen injector [address] [facility]60140, [address] [facility], [place], [place], [id number], 5 08:39:35 Patient TargetsNo targets recorded. Patient InstructionsNo instructions recorded. Reason for Referral None Reported. Results Created Date Observation Date Name Description Value Unit Range Abnormal Flag Note LastModifiedBy Organization Detail LastModifiedTime 02/14/20 25 02/13/2025 CT, abdom en + pelvi s, w/ contr ast No observ ation record ed. [address] [address], [place], [address], 02/14/2025 11:18:11 03/28/20 25 03/28/2025 US, abdom en + pelvi s No observ ation record ed. [address] [address], [place], [address], 03/28/2025 14:38:43 03/28/20 25 03/28/2025 XR, chest , 2 view No observ ation record ed. [address], [address], 03/28/2025 15:34:32 Result Notes None recorded. Problems Name Problem SNOMED Code Status Onset Date Resolution Date Notes Provider Name and Address Organization Details Recorded Time Depressive disorder 89086260 Active 2020 Not Available [facility] 3 23:59:51 Mixed anxiety and depressive disorder 286743458 Active 2021 Not Available [facility] 3 23:59:51 Chronic insomnia 643819113 Active 2023 Mark Burdick MD [address], [place], [address] , [place] [facility] 4 16:58:49 Overweight 315670625 Active 2023 Mark Burdick MD [address], [address], [place], [address] , [place] [facility] 4 17:04:53 History of obesity 115563017 Active 2023 Mark Burdick MD [address], [address], [place], [address] , [place] [facility] 4 17:05:13 Mammography abnormal 283975271 Active 2023 Mark Burdick MD [address], [address], [place], [address] , [place] [facility] 4 10:45:55 Fatigue 46075400 Active 2023 VERNON Morgan [address], [place], [address] , [place] [facility] 4 08:58:28 Migraine with aura 4898469 Active 2023 VERNON Morgan [address], [address], [place], [address] , [place] [facility] 4 09:01:46 Iron deficiency anemia 46266253 Active 2023 VERNON Morgan [address], [address], [place], [address] , [place] [facility] 4 08:27:54 Vitamin D deficiency 86086739 Active 2023 VERNON Morgan [address], [place], [address] , [place] [facility] 4 08:17:54 Anemia 119302630 Active 2023 VERNON Morgan [address], [address], [place], [address] , [place] [facility] 4 08:19:25 Right upper quadrant pain 842210412 Active 2023 VERNON Morgan [address], [place], [address] , [place] [facility] 4 08:42:17 Alopecia 89064213 Active 2023 VERNON Morgan [address], [address], [place], [address] , [place] [facility] 4 08:44:45 Attention deficit hyperactivity disorder 263667437 Active 2023 VERNON Morgan [address], [address], [place], [address] , [place] [facility] 4 09:23:16 Insomnia 993362669 Active 2023 VERNON Morgan [address], [place], [address] , [place] [facility] 4 09:25:18 Cramp in lower limb 763827458 Active 2023 VERNON Morgan [address], [place], [address] , [place] [facility] 4 09:30:36 Nausea 809513607 Active [address], [place], [address] , [place] [facility] 5 09:00:11 Pain of multiple joints 63281897 Active [address], [place], [address] , [place] [facility] 5 09:01:02 Obese 607476238 Active 2024 VERNON Morgan [address], [place], [address] , [facility] [employer] [facility] 5 09:15:36 Fear of medical treatment 829969613 Active 2024 VERNON Morgna [address] [facility], [address] [address], [place], [address] , [facility] [employer] [facility] 5 16:33:15 Dyspnea on exertion 70377248 Active 2024 VERNON Morgan [address] [address], [place], [address] , [facility] [address] 5 08:47:55 Mild depression 335301288 Active 2024 VERNON Morgan [address] [address], [place], [address] , [facility] [address] 5 09:02:04 Problem Notes None recorded. Procedures Surgical History Date Name Laterality Status Provider Name and Address Organization Details Recorded Time 4 Date of Last Pap Smear completed Magdalena Arreguin RN [facility] [address] 03/04/2024 08:49:47 4 Most Recent Mammogram completed Magdalena Arreguin RN [facility] [employer] [facility] 03/04/2024 08:49:31 section completed Not Available [facility] 01/07/2023 23:58:58 extraction of wisdom tooth completed Not Available [facility] 01/07/2023 23:58:58 Ablation completed Not Available [facility] 23:58:58 cosmetic surgery completed Not Available [facility] 01/07/2023 23:58:58 Imaging Results None recorded. Procedure [...] completed Not Available Not Available Not Available citalopram 10 mg tablet TAKE 1 TABLET BY MOUTH EVERY DAY DIRECTED active Not Available Not Available No t Available tretinoin 0.025 % topical cream active [...] MOUTH TWICE DAILY FOR 1 DAY NEEDED 05/05 completed Not Available Not Available Not Available aripiprazol [...] 0.25 mg/0.5 mL subcutaneou s pen injector ADMINISTE R 0.25 MG UNDER THE SKIN EVERY WEEK DIRECTED active Not Available Not Available No t Available Wegovy 0.5 mg/0.5 mL subcutaneou s pen injector INJECT 0.5MG UNDER THE SKIN EVERY WEEK FOR 4 WEEKS THEN USE 1MG DOSE 03/17 completed Not Available Not Available Not Available Qulipta 30 mg tablet TAKE 1 TABLET BY MOUTH EVERY DAY DIRECTED active Not Available Not Available No t Available Qulipta 10 mg tablet active Not Available Not Available No t Available Vitals Date Recorded Body height Body mass index (BMI) Body weight Body temperature Heart rate Respiratory rate Oxygen saturation Oxygen saturation in Arterial blood by Pulse oximetry Systolic And Diastolic Provider Name and Address Organization Details Last Updated DateTime 5 160.02 cm 28 kg/m2 76266.6 4 g 97.3 [degF] 66 /min 20 /min 99 % 99 % 108/62 mm[Hg] Magdalena Arreguin RN [facility] [employer] [facility] 5 08:41:38 Date Recorded Body height Body mass index (BMI) Body weight Body temperature Heart rate Respiratory rate Oxygen saturation Oxygen saturation in Arterial blood by Pulse oximetry Systolic And Diastolic Provider Name and Address Organization Details Last Updated DateTime 5 160.02 cm 26.7 kg/m2 11767.4 5 g 97.8 [degF] 90 /min 20 /min 99 % 99 % 120/82 mm[Hg] Magdalena Arreguin RN [facility] [employer] [facility] 5 08:42:56 Date Recorded Body height Body mass index (BMI) Body weight Body temperature Heart rate Respiratory rate Oxygen saturation Oxygen saturation in Arterial blood by Pulse oximetry Systolic And Diastolic Provider Name and Address Organization Details Last Updated DateTime 5 160.02 cm 27.5 kg/m2 24580.9 2 g 97.7 [degF] 114 /min 20 /min 97 % 97 % 160/90 mm[Hg] Magdalena Arreguin RN [facility] [employer] [facility] 5 08:54:28 Date Recorded Body height Body mass index (BMI) Body weight Body temperature Heart rate Respiratory rate Oxygen saturation Oxygen saturation in Arterial blood by Pulse oximetry Systolic And Diastolic Provider Name and Address Organization Details Last Updated DateTime 4 160.02 cm 26.8 kg/m2 11664.2 5 g 97.4 [degF] 88 /min 20 /min 99 % 99 % 116/80 mm[Hg] Magdalena Arreguin RN [facility] [employer] [facility] 4 08:38:56 Date Recorded Body height Body mass index (BMI) Body weight Body temperature Heart rate Respiratory rate Oxygen saturation Oxygen saturation in Arterial blood by Pulse oximetry Systolic And Diastolic Provider Name and Address Organization Details Last Updated DateTime 4 160.02 cm 26.3 kg/m2 00471.8 2 g 97.4 [degF] 90 /min 20 /min 99 % 99 % 104/62 mm[Hg] Magdalena Arreguin RN [place] [facility] 4 09:03:08 Social History Question Answer Notes LastModified by Organizat ion Details LastModified Time Tobacco Smoking Status Never Smoker Not Available [employer] 01/07/2023 23:58:29 Do You Have An Advance Directive? No [id number] Information not available 01/07/2023 Is Blood Transfusion Acceptable In An Emergency? Yes Information not available 01/23/2023 What Is Your Level Of Caffeine Consumption? None MIGRATION.25875 [id number] Information not available 01/07/2023 What Is Your Code Status? Full Code Information not available 01/23/2023 In The 14 Days Before Symptom Onset, Have You Had Close Contact With A Laboratory-confi rmed COVID-19 While That Case Was Ill? No MIGRATION.[id number] Information not available 01/07/2023 In The 14 Days Before Symptom Onset, Have You Had Close Contact With A Person Who Is Under Investigation For COVID-19 While That Person Was Ill? No MIGRATION.47531 [id number] Information not available 01/07/2023 What Type Of Diet Are You Following? REGULAR MIGRATION.95071 85629 Information not available 01/07/2023 What Is The Highest Grade Or Level Of School You Have Completed Or The Highest Degree You Have Received? [id number] MIGRATION.21315 85680 Information not available 01/07/2023 How Many Days [...] The Fluoride Status Of Your Home? Unknown MIGRATION.07561 [id number] Information not available 01/07/2023 Do You Use Insect Repellent Routinely? No MIGRATION.20941 42253 Information not available 01/07/2023 Where Do You Live? [place]House MIGRATION.88926 01314 Information not available 01/07/2023 Do You Have A Medical Power Of Tooling Inspector? No MIGRATION.73435 25947 Information not available 01/07/2023 How Many Children Do You Have? 1 Information not available 01/23/2023 Do You Have Any Pets? No MIGRATION.51727 40940 Information not available 01/07/2023 Do You Use Protection During Sex? No Information not available 01/23/2023 What Is Your Relationship Status? MIGRATION.35542 21805 Information not available 01/07/2023 Do You Use Your Seat Belt Or Car Seat Routinely? Yes MIGRATION.80348 58313 Information not available 01/07/2023 Are You Sexually Active? Yes Information not available 01/23/2023 Do You Have Smoke And Carbon Monoxide Detectors In Your Home? Yes MIGRATION.08519 41427 Information not available 01/07/2023 Are You Passively Exposed To Smoke? No MIGRATION.72065 93177 Information not available 01/07/2023 Are There Any Smokers In Your House? No MIGRATION.44379 91171 Information not available 01/07/2023 Do You Participate In Social Emtrics? Yes Information not available 01/23/2023 What Types Of Sporting Activities Do You Participate In? Cardio, Stepper ,weight Lifting Information not available 08/25/2023 Do You Use Sunscreen Routinely? No MIGRATION.18686 10063 Information not available 01/07/2023 Have You Recently Traveled Abroad? No MIGRATION.88253 33605 Information not available 01/07/2023 Are You Currently In School? No MIGRATION.14426 70404 Information not available 01/07/2023 Do You Have Any Dietary Restrictions? No MIGRATION.41833 36097 Information not available 01/07/2023 Sex: Unknown Functional Status Question Answer Note LastModified by [employer] Details LastModified Time Do you use any illicit or recreational drugs? No Information not available 01/23/2023 Do you or have you ever used any other forms of tobacco or nicotine? No Information not available 01/23/2023 What is your level of alcohol consumption? None [id number] Information not available 01/07/2023 Are you currently employed? Yes Information not available 01/23/2023 What is your occupation? [employer] Information not available 03/17/2023 What is your exercise level? Moderate Information not available 03/24/2025 Mental Status Question Answer Note LastModified by Organizat ion Details LastModified Time Do you feel stressed (tense, restless, nervous, or anxious, or unable to sleep at night)? [id number] [id number] Information not available 01/07/2023 Family History Relationship Description Onset Age of this Age Resolved Age Notes LastModified by Organization Details LastModified Time Father Family history of malignant neoplasm colon [email or web address] Not available 10/04 08:53:01 Paternal Grandfather Family history of malignant neoplasm [email or web address] Not available 10/04 08:53:01 Paternal Grandmother Family history of malignant neoplasm [email or web address] Not available 10/04 08:53:01 Maternal Grandmother Family history of malignant neoplasm [email or web address] Not available 10/04 08:53:01 Maternal Grandfather Myocardial infarction [id number] Not available 01/07/2023 23:59:00 Medical History Condition [...] SHINGLES N FEMALE PROBLEMS / INFECTIONS N DEPRESSION (INCLUDING POST ) N BOWEL PROBLEMS N STROKE/TIA N THYROID DISEASE N ULCERS [...] N EDEMA N CHRONIC PAIN SYNDROME N CAROTID BLOCKAGE N CONSTIPATION N BACK / NECK PROBLEMS N HAVE YOU BEEN HOSPITALIZED OR SEEN IN [facility] IN THE PAST YEAR ? N ATHEROSCLEROSIS [...] Pap N Flow Heavy Date of LMP 05/04/2025 STIs/STDs N Dislike of Light during Menstrual [...] virus, quadrivalent, PF 08/25/2023 completed REID Mitchell, [facility] [address] 08/25/2023 11:32:21 Influenza, split virus, trivalent, PF 10/05/2024 completed REID Mitchell [place] [employer] [facility] [address] 10/05/2024 09:31:35 Past Encounters Encounter ID Performer Location Encounter Start Date Encounter Closed Date Diagnosis/Indication Diagnosis SNOMED-CT Code Diagnosis ICD10 Code Diagnosis Note [id number] Mark Burdick MD [facility] [address] [address] 09/12/2021 00:00:00 09/12/2021 16:17:11 [id number] Mark Burdick MD [facility] [place] [address] [place] [address] 10/15/2021 00:00:00 10/15/2021 12:23:[id number] [facility] [place] [address] [place] [address] 11/13/2021 00:00:00 11/13/2021 16:45:31 [id number] [facility] [address] [place] [address] 04/15/2022 00:00:00 04/15/2022 18:14:56 [id number] [address]o [address] [facility] [place] [address] [facility] [place] [address] 06/11/2022 00:00:00 06/11/2022 16:45:37 [id number] [facility] [place] [address] [place] [address] 10/21/2022 00:00:00 10/21/2022 18:04:32 [id number] [facility] [place] [address] [facility] [place] [address] 10/30/2022 00:00:00 10/30/2022 16:43:14 [id number] [address] Quintero NP [facility] [place] [address] [place] [address] 01/23/2023 08:56:16 01/23/2023 09:36:16 Mixed anxiety and depressive disorder 465795680 F41.8 Trazodone nightly working. Obese 825225205 E66.9 Failed phentermin e, contrave, orlistat ( overseas), Qsymia, topiramate . Patient believes she has tried all steps to get through what is needed for approval of wegovy. [id number] [place] [address] 03/17/2023 17:42:15 03/18/2023 08:58:46 Obese 013179008 E66.9 Failed phentermin e, contrave, orlistat ( overseas), Qsymia, topiramate . Patient believes she has tried all steps to get through what is needed for approval of wegovy. 03/17/23 Wegovy 1 mg for 4 weeks and then to 1.7 mg weekly. [id number] Magdalena Quintero NP [place] [address] 05/15/2023 10:59:50 05/15/2023 11:52:55 Obese 213581638 E66.9 Failed phentermin e, contrave, orlistat ( overseas), Qsymia, topiramate . Patient believes she has tried all steps to get through what is needed for approval of wegovy. 03/17/23 Wegovy 1 mg for 4 weeks and then to 1.7 mg weekly. Insomnia 246865408 G47.0 0 Trazodone prn sleep. [id number] Magdalena Quintero NP [place] [address] 08/25/2023 10:46:38 08/25/2023 11:33:18 Insomnia 756643043 G47.00 Trazodone prn sleep. Obese 471542972 E66.9 Failed phentermin e, contrave, orlistat ( overseas), Qsymia, topiramate . Patient believes she has tried all steps to get through what is needed for approval of wegovy. 03/17/23 Wegovy 1 mg for 4 weeks and then to 1.7 mg weekly. wegovy 2.4 mg weekly. Down another 20 lbs today. Increased belching 01379 005 R14.2 sulfur odor- take famotidine or prilosec otc prn. Change diet to remove garlic. Administra tion of influenza vaccine 23408001 Z23 Flu shot given 08/25/23 [id number] Mark Burdick MD [place] [address] 08/31/2023 12:26:13 08/31/2023 14:47:21 [id number] Mark Burdick MD [address] [place] [address] 11/23/2023 16:44:19 11/23/2023 17:21:55 Chronic insomnia 183266964 F51.04 Obese 916006524 E66.9 Overweight 205427765 E66 .3 History of obesity 66796 3001 Z91.89 [id number] Mark Burdick MD [place] [address] 12/24/2023 08:59:31 12/24/2023 09:26:01 Adult health examination 358146106 Z00.00 Overweight 791774560 E66 .3 History of obesity 62459 3001 Z91.89 Screening for disorder 693231930 Z13.9 [id number] Mark Burdick MD [address] [address] 03/04/2024 08:30:51 03/04/2024 09:27:33 Fatigue 45008473 R53.83 Migraine with aura 63282 06 G43.109 Obese 973467649 E66.9 [id number] Mark Burdick MD [address] [address] 06/13/2024 14:38:31 06/13/2024 15:36:56 Iron deficiency anemia 30988243 D50.9 Migraine with aura 76155 06 G43.109 Patient has failed amitripyli ne and topiramate . Unable to take propranolo l due to BP Fatigue 49500820 R53.83 [id number] Mark Burdick MD [facility] [address] 06/20/2024 08:56:20 06/20/2024 11:16:06 [id number] Mark Burdick MD [address] [address] 08/18/2024 08:32:19 08/18/2024 08:54:06 Right upper quadrant pain 258388906 R10.11 Overweight 906547388 E66 .3 Alopecia 78708566 L65.9 [id number] Mark Burdick MD [address] [address] 10/04/2024 08:52:29 10/04/2024 09:33:35 Attention deficit hyperactivity disorder 489753402 F90.9 Insomnia 666058537 F51.0 1 Administra tion of influenza vaccine 73016743 Z23 Cramp in lower limb 4499 67327 R25.2 Advised to add OTC Magnesium [id number] Mark Burdick MD [address] [address] 12/27/2024 08:30:20 12/27/2024 09:19:02 Adult health examination 445659918 Z00.00 patient is in overall fair health - anemia is the largest persistent issueHealt h maintance reviewedDi et and exercise reviewedAl l patient questions answered Anemia 974551059 D64.9 Recent blood transfusio n at [facility] seen hematology , feels they are not investigat ing Insomnia 673379331 F51.0 1 Well controlled Obese 076880863 E66.9 Well controlled Nausea 288185432 R11.0 idiopathic , persistent Pain of mu ltiple joints 41737458 M25.50 with associated muscle weakness Hepatitis C screening 41 7818620 Z11.59 Liver as possible anemia issue? Attention deficit hyperactivity disorder 661141979 F90.9 Well controlled Mammography abnormal 168 431434 R92.8 01/12/24 notes cysts, recommende d 6 month FU with diagnositi c mammo and US Hyperlipid emia screening 040702256 Z13.220 Diabetes m ellitus screening 086149441 Z13.1 [id number] VERNON Morgan [facility] [address] [place] [address] 03/24/2025 08:31:08 03/24/2025 09:16:53 Dyspnea on exertion 19069325 R06.02 Likely related to anemia Anemia 240701877 D64.9 [facility] hematology , feels they are not investigat ing Attention deficit hyperactivity disorder 566282680 F90.9 Well controlled [id number] Mark Burdick MD [facility] [address] [place] [address] 05/05/2025 08:46:08 05/05/2025 09:55:35 Mild depression [id number] F32.A Related to health concerns and fatigue Attention deficit hyperactivity disorder [id number] F90.9 Well controlled Obese [id number] E66.9 Well controlled Migraine with aura 48454 06 G43.109 Patient has failed amitripyli ne and topiramate . Unable to take propranolo l due to BP Health Concerns Section Related Observation LastModified by Organization Detai ls LastModified Time None Recorded Concern Status LastModified by Organization Details LastModified Time None Recorded Advance Directives Directive N: Payers Insurance Date Sequence Insurance Name Policy Number Policy Saab Covered Member ID Saab Member ID Guarantor Name 12/27/2024 1 [facility] () Antwan Kline [id number] Chioma Kline 05/03/2025 1 [facility] () Chioma Kline [id number] Chioma Kline Notes Date Note Type Note [...] She has alopecia, previously managed by derm. Cotton Converter she was seeing is no longer seeing her, she has asked that I take over her ketoconazole shampoo. VERNON Morgan [address], [address], [place], [address], [employer] 08/18/2024 08:51:17 10/04/2024 text/html Chioma Kline is [...] with muscle cramps VERNON Morgan [address], [address], [place], [address], [employer] 10/04/2024 09:32:07 12/27/2024 text/html Annual Wellness and ER FU Was in [facility] for anemia, hemoglobin was 4.7 at hematology [...] 2022Mammogram: 01/12/2024, abnormalColonoscopy /EGD: 08/2024WWE: [address] Pierre Montes De Oca, VERNON [address], [place], [address], [employer] 12/27/2024 09:16:56 03/24/2025 text/html Chioma Kline is [...] so low.Biggest concern is shortness of breath, evansaiseIrish has an appointment with a second hematology clinic in SeptemberShana is getting frustrated with lack of resolution She is taking atomoxetine for ADHD and feels this works well. VERNON Morgan [address], [place], [address], [facility] [employer] 03/24/2025 09:12:21 05/05/2025 text/html Chioma Kline is a 45 year old female patient here today for a 1month FU She did have a transfusion on 04/17/25 and she has an iron infusion today.She is menstruating today. She notes that she feels drained when she is menstruating.She feels she is not getting answers with Dr. Locke, she does have an appointment for a second opinion in September. She is not getting transfusions/infusi ons twice per month. 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 She has been going to work with migraines but this is getting difficult. She notices mood, previously took fluoxetine, sertraline, and Wellbutrin She has been taking Qulipta and Ubrelvy as needed. Does find this effective. She does have auras and vision loss. N/V, sensitiy to light and noise. States when this occurs she has to sleep in her closet. VERNON Morgan [address], [facility] [address], [place], [address], [facility] 05/05/2025 09:54:46 OBGyn Episode No OBEpisode recorded.
--- OUTSIDE RECORDS SUMMARY | 2025-05-26 05:41 | XMS_ITS | Encounter Summary ---
Author Organization [facility] Address [address] [place] [address] Care Team Providers Care Actuarial Manager Name Role Phone Mark Burdick MD Primary Care Provider Encounter Details Date Type Department Care Team (Late st Contact Info) Description 05/24/2025 External Device Data STL ABSTRACTION Provider, Abstract NO ADDRESS ON FILE Social History Tobacco Use Types Packs/Day Years [...] Care Team (Late st Contact Info) Description 08/11/2025 8:45 AM CDT Office Visit [facility] Oncology and Hematology - [place] [address] [facility] [address] [place] [address] Alex Locke MD [address] [facility] [address] [place] [address] documented as of this encounter Visit Diagnoses Not on filedocumented in this encounter Care Teams Actuarial Manager Relationship Specialty Start Date End Date Mark Burdick MD [address] [place] [phone] PCP - General Family Practice 06/21/24 documented as of this encounter
--- OUTSIDE RECORDS SUMMARY | 2025-05-26 05:41 | XMS_ITS | Clinical Summary ---
Author Organization [facility] Lenore Leal Address [address] [place] [address] Care Team Providers Care Mincemeat Maker Name Role Phone Mark Burdick MD Primary Care Provider [phone] Allergies No known active allergies Medications traZODone [...] Encounters Date Type Department Care Team Description 05/24/2025 External Device Data STL ABSTRACTION Provider, Abstract 05/24/2025 External Device Data STL ABSTRACTION Provider, Abstract 05/19/2025 Telephone [facility] Oncology and Hematology - [place] [address] [place] [address] Alex Locke MD Feeling sick 05/01/2025 Orders Only [facility] Oncology and Hematology - [place] [address] [place] [address] Alex Locke MD 04/26/2025 External Device Data STL ABSTRACTION Provider, Abstract 04/21/2025 Orders Only [facility] Oncology and Hematology - [place] [address] [place] [phone] Alex Locke MD 04/14/2025 Abstract [facility] Oncology and Hematology - [place] [address] [place] [address] Alex Locke MD 04/14/2025 Orders Only [facility] Oncology and Hematology - [place] [address] [place] [phone] Alex Locke MD Chronic anemia (Primary Dx) 04/04/2025 External Device Data STL ABSTRACTION Provider, Abstract 03/30/2025 External Device Data STL ABSTRACTION Provider, Abstract 03/29/2025 External Device Data STL ABSTRACTION Provider, Abstract 03/24/2025 1:15 PM CDT Office Visit [facility] Oncology and Hematology - [place] [address] [place] [phone] Alex Locke MD Chronic anemia (Primary Dx) 03/24/2025 Orders Only [facility] Oncology and Hematology - [place] [address] [place] [phone] Alex Locke MD 03/22/2025 Abstract [facility] Oncology and Hematology - [place] [address] [place] [phone] Alex Locke MD 03/17/2025 Orders Only [facility] Oncology and Hematology - [place] [address] [place] [address] Alex Locke MD 03/01/2025 Orders Only [facility] Oncology and Hematology - [place] [address] [place] [address] Alex Locke MD Chronic anemia (Primary Dx) from Last 3 Months Family History Medical [...] P M CDT Height 160 cm (5' 3) 06/21/2024 10:56 AM CDT Body Mass Index 28.56 06/21/2024 10:56 AM CDT Plan of Treatment Upcoming Encounters Date Type Department Care Team (Late st Contact Info) Description 08/11/2025 8:45 AM CDT Office Visit [facility] Oncology and Hematology - [place] [address] [facility] [address] [place] [address] Alex Locke MD [address] [facility] [address] [place] [address] Health Maintenance Due Date Last Done Comments Pre-Diabetes and Diabetes Screening 1980 HEPATITIS B VACCINES (1 of 3 - 19+ 3-dose series) 2001 HPV/Cotest (21-29) 2003 HPV/Cotest (30-65) 2012 CERVICAL CANCER SCREENING 02/09/2022 PAP SMEAR 02/09/2022 02/09/2019 BREAST CANCER SCREENING 2022 COVID-19 Vaccine ( season) 2024 2021, 03/22/2021 INFLUENZA VACCINE (#1) 2025 , 08/25/2023, 08/24/2020, Additional history exists DTAP/TDAP/TD VACCINES (2 - Td or Tdap) 10/14/2028 10/14/2018 HPV VACCINES Aged Out No longer eligi ble based on patient's age to complete this topic Procedures Procedure Name Priority Date/Time Associated Diagnosis Comments IRON LEVEL Routine 05/01/2025 4:13 PM CDT CBC WITH AUTODIFFERENTIAL Routine 2024 1:49 PM CDT TYPE AND SCREEN Routine 03/22/2025 2:44 PM CDT from Last 3 Months Results * IRON LEVEL (05/01/2025 4:13 PM CDT) Blood us Alex Locke MD CHEMISTRY ORDERABLES Final Resu lt * CBC WITH AUTODIFFERENTIAL (04/14/2025 1:49 PM CDT) Blood us Alex Locke MD HEMATOLOGY ORDERABLES Final Res ult * TYPE AND SCREEN (03/22/2025 2:44 PM CDT) Blood us Alex Locke MD BLOOD BANK ORDERABLES Final Res ult from Last 3 Months Insurance [facility] Care Teams Mincemeat Maker Relationship Specialty Start Date End Date Mark Burdick MD [address] [place] [address] [place] [address] PCP - General Family Practice 06/21/24
--- NOTE | 2025-05-26 07:35 | SUR.OPER ---
Patient brought to GI Lab. Instructions for patient undergoing Capsule Endoscopy reviewed with patient. Consent form signed. Sensor array applied to patient's abdomen and connected to recorded. Patient swallowed capsule with 2 cups of water infused with Simethicone. Patient instructed they may have clear liquids at 0620 this AM and eat or drink at 0820 this AM. Patient instructed to return to GI Lab at 1500 this afternoon for removal of recording device and to call [phone] or to return to the hospital if any nausea and vomiting or abdominal pain is experienced.
== END 2025-05-26 05:22 | disposition home or self-care (01) ==
PROVIDERS: Visit Provider Internal Medicine Gastroenterology
PROC: (CPT 91110; principal; 2025-05-26 07:00)
DX: D50.9 Iron deficiency anemia, unspecified (principal)
CPT/HCPCS: 91110

== ENCOUNTER 2025-06-09 00:49 | Day surgery (SDC) | payer OTHER, SELFPAY ==
[2025-06-08 11:48] VITALS: BMI 26.6
--- OUTSIDE RECORDS SUMMARY | 2025-06-09 00:52 | XMS_ITS | Clinical Summary ---
Author Organization [facility] Lenore Leal Address [address] [place] [address] Care Team Providers Care Caregivers Non Medical Name Role Phone Mark Burdick MD Primary Care Provider [phone] Allergies No known active allergies Medications traZODone [...] Data STL ABSTRACTION Provider, Abstract 05/19/[address] [facility] Oncology and Hematology - [place] [address] [place] [address] Alex Locke MD Feeling sick 05/01/[address] [facility] Oncology and Hematology - [place] [address] [place] [address] Alex Locke MD 04/26/2025 External Device Data STL ABSTRACTION Provider, Abstract 04/21/[address] [facility] Oncology and Hematology - [place] [address] Alex Locke MD 04/14/[address] [facility] Oncology and Hematology - [place] [address] [place] [address] Alex Locke MD 04/14/[address] [facility] Oncology and Hematology - [place] [address] [place] [address] Alex Locke MD Chronic anemia (Primary Dx) 04/04/2025 External Device Data STL ABSTRACTION Provider, Abstract 03/30/2025 External Device Data STL ABSTRACTION Provider, Abstract 03/29/2025 External Device Data STL ABSTRACTION Provider, Abstract 03/24/2025 1:15 PM CDT Office Visit [facility] Oncology and Hematology - [place] [address] [place] [phone] Alex Locke MD Chronic anemia (Primary Dx) 03/24/[address] [facility] Oncology and Hematology - [place] [address] [place] [phone] Alex Locke MD 03/22/[address] [facility] Oncology and Hematology - [place] [address] [place] [phone] Alex Locke MD 03/17/[address] [facility] Oncology and Hematology - [place] [address] [place] [address] Alex Locke MD from Last 3 Months [...] Description 08/11/2025 8:45 AM CDT Office Visit [facility] Oncology and Hematology - [place] [address] [facility] [address] [place] [address] Alex Locke MD [address] [facility] [address] [place] [address] Health Maintenance Due Date Last Done Comments Pre-Diabetes and Diabetes Screening 1982 HPV VACCINES (1 - 3-dose series) 1997 HEPATITIS B VACCINES (1 of 3 - 19+ 3-dose series) 2001 HPV/Cotest (21-29) 2003 HPV/Cotest (30-65) 2012 CERVICAL CANCER SCREENING 02/09/2022 PAP SMEAR 02/09/2022 02/09/2019 BREAST CANCER SCREENING 2022 COVID-19 Vaccine (2023-2 5 season) 2024 2021, 03/22/2021 INFLUENZA VACCINE (#1) 2025 4, 08/25/2023, 08/24/2020, Additional history exists DTAP/TDAP/TD VACCINES (2 - T d or Tdap) 10/14/2028 10/14/2018 Procedures Procedure Name Priority Date/Time Associated Diagnosis [...] Res ult from Last [address] [place] [address] [place] [address] Care Teams Caregivers Non Medical Relationship Specialty Start Date End Date Mark Burdick MD [address] [place] [phone] PCP - General Family Practice 06/21/24
[2025-06-09 07:21] VITALS: BP 120/71; PULSE 92; RESP 18; TEMP 36.6; O2SAT 98
[2025-06-09 07:25] LABS: BEDSIDEPREGUCG Negative (Negative)
[2025-06-09] MEDS: LACTATED RINGERS 1,000 ML 150 ML IV CONT (07:30)
--- NOTE | 2025-06-09 07:58 | P.PNAN_ITS ---
Anes - Initial Pre Proc Eval Procedure: Operation Date: 06/09/25 08:15 Proposed Procedures p Esophagogastroduodenoscopy with push endoscopy - Fabrizio Palencia MD Date/Time: 06/09/25 07:58 Surgeon: Fabrizio Palencia MD Pre Op Diagnosis: small bowel ulcer with bleed per Given's capsule Patient Data Age: 45 Gender: F Height: 1.6 m Weight: 70.5 kg Last Vital Signs Temp 36.6 C 06/09/25 07:21 Pulse 92 06/09/25 07:21 Resp 18 06/09/25 07:21 BP 120/71 06/09/25 07:21 Pulse Ox 98 06/09/25 07:21 O2 Del Method Room Air 06/09/25 07:21 Allergies Allergy/AdvReac Type Severity Reaction Status Date / Time No Known Allergies Allergy Verified 06/09/25 07:19 Home Medications ?Medication ?Instructions ?Recorded ?Confirmed ?Type ferrous sulfate 325 mg (65 mg 325 mg PO BID #60 tabs 06/14/24 06/09/25 Rx iron) tablet,delayed release atogepant 30 mg tablet (Qulipta) 30 mg PO DAILY PRN MIGRAINES 07/07/24 06/08/25 History ergocalciferol (vitamin D2) 1,250 50,000 unit PO WEEKLY 07/07/24 06/09/25 History mcg (50,000 unit) capsule atomoxetine 40 mg PO DAILY 10/12/24 06/09/25 History zolpidem 5 mg PO HS 10/12/24 06/09/25 History ondansetron 4 mg disintegrating 4 mg PO Q8H PRN nausea and 12/11/24 06/08/25 Rx tablet vomiting #14 tabs citalopram 10 mg tablet 10 mg PO DAILY 05/15/25 06/09/25 History semaglutide (weight loss) 0.25 0.25 mg subcut WEEKLY 06/08/25 06/08/25 History mg/0.5 mL subcutaneous pen injector (Wegovy) Laboratory Tests 06/09/25 07:21 POC Urine HCG, Qual Negative (Negative) Patient hx anesthesia problems: none Family hx anesthesia problems: none Results Review: All pre-operative results and documents have been reviewed as part of the pre- operative evaluation. PMFSH Past Medical History Medical History GIB (gastrointestinal bleeding) Depression with anxiety Family history of colon cancer in father Migraine Anemia, hemolytic, G6PD deficiency Surgical History Surgical History History of endometrial ablation History of breast lift History of abdominoplasty History of bilateral tubal ligation with 3rd History of x3 Family History Family History Sibling G6PD deficiency Social History Social History Social History: Smoking status: Never smoker Second hand tobacco smoke exposure: No Alcohol intake: never Substance use: never Substance use type: does not use Do You Feel Safe in your Home?: Yes Lack of Transportation: No Lack of Food: Never True Current Housing: I Have Housing Concerned About Future Housing: No Difficulty Paying Gas/Electric Bills: No Difficulty Paying for Meds: No Currently Unemployed: No Education: Bachelor's Degree Difficulty w/ Childcare or Family Care: No Living arrangements: with family Spiritual care concerns: No Anes - Eval Final PreProcedure Day of Procedure 06/09/25 07:58 Patient weight: normal and overweight Heart: regular rate and rhythm Lungs: clear to auscultation Airway: Mallampati scale class II Neurological: alert and oriented Last oral intake: >/= 8 hours ASA classification: II Emergent: no Anesthetic plan: proceed Anesthesia type and monitoring: general GIVS and standard monitoring Results Review: All pre-operative results and documents have been reviewed as part of the pre- operative evaluation. Informed Consent: The patient's anesthetic plan and its attendant risks and benefits were discussed with the patient/family/POA. Questions were solicited and answers provided to the satisfaction of the patient/family/POA.
--- NOTE | 2025-06-09 08:11 | P.HP_ITS ---
History of Present Illness History of Present Illness Consent: Risks, benefits, and alternatives have been discussed and questions answered. Patient agrees to proceed with procedure. Chief complaint: small bowel ulcer with bleed per Given's capsule Narrative: Chioma Kline is a 45 year old female with acute on chronic anemia, she denies overt gib, her symptoms mostly bloating, nausea and abdominal discomfort. Recent SBCE noted oozing and ulcers in jejunum, she is here to complete EGD with push enteroscopy. Review of Systems Review of Systems: All systems reviewed & are unremarkable except as noted in HPI and below PMFSH Past Medical History Medical History GIB (gastrointestinal bleeding) Depression with anxiety Family history of colon cancer in father Migraine Anemia, hemolytic, G6PD deficiency Surgical History Surgical History History of endometrial ablation History of breast lift History of abdominoplasty History of bilateral tubal ligation with 3rd History of x3 Family History Family History Sibling G6PD deficiency Social History Social History Social History: Smoking status: Never smoker Second hand tobacco smoke exposure: No Alcohol intake: never Substance use: never Substance use type: does not use Do You Feel Safe in your Home?: Yes Lack of Transportation: No Lack of Food: Never True Current Housing: I Have Housing Concerned About Future Housing: No Difficulty Paying Gas/Electric Bills: No Difficulty Paying for Meds: No Currently Unemployed: No Education: Bachelor's Degree Difficulty w/ Childcare or Family Care: No Living arrangements: with family Spiritual care concerns: No Meds Home Medications and Allergies Home Medications ?Medication ?Instructions ?Recorded ?Confirmed ?Type ferrous sulfate 325 mg (65 mg 325 mg PO BID #60 tabs 06/14/24 06/09/25 Rx iron) tablet,delayed release atogepant 30 mg tablet (Qulipta) 30 mg PO DAILY PRN MIGRAINES 07/07/24 06/08/25 History ergocalciferol (vitamin D2) 1,250 50,000 unit PO WEEKLY 07/07/24 06/09/25 History mcg (50,000 unit) capsule atomoxetine 40 mg PO DAILY 10/12/24 06/09/25 History zolpidem 5 mg PO HS 10/12/24 06/09/25 History ondansetron 4 mg disintegrating 4 mg PO Q8H PRN nausea and 12/11/24 06/08/25 Rx tablet vomiting #14 tabs citalopram 10 mg tablet 10 mg PO DAILY 05/15/25 06/09/25 History semaglutide (weight loss) 0.25 0.25 mg subcut WEEKLY 06/08/25 06/08/25 History mg/0.5 mL subcutaneous pen injector ([employer]) Allergies Allergy/AdvReac Type Severity Reaction Status Date / Time No Known Allergies Allergy Verified 06/09/25 07:19 Vital Signs Vital Signs - 24 hr 06/09/25 07:21 Temperature 97.8 F Pulse Rate 92 Respiratory Rate 18 Blood Pressure 120/71 Pulse Oximetry 98 Oxygen Delivery Room Air Exam Const: General: comfortable and no acute distress HENMT: Face/Nose/Sinus: Normal nares present Eyes: General: appearance normal, both eyes and all related structures Neck: Neck: no JVD Resp: Auscultation: clear to auscultation bilaterally Cardio: Rate: regular rate Rhythm: regular rhythm GI: Inspection: non-distended GI Palp: Yes Soft to palpation Skin: General skin exam: normal color Neuro: Speech: normal speech Extrem: General: normal to inspection Psych: Mental Status: mental status grossly normal Assessment and Plan Assessment and plan (1) GIB (gastrointestinal bleeding): Code(s): K92.2 - Gastrointestinal hemorrhage, unspecified Status: Acute Assessment and Plan: abnormal SBCE with some bleeding jejunum she denies any melena or overt gib though EGD with push enteroscopy now also will arrange SBFT (2) BARI (iron deficiency anemia): Code(s): D50.9 - Iron deficiency anemia, unspecified Status: Acute
[2025-06-09 08:32] VITALS: BP 96/50; PULSE 102; RESP 19; O2SAT 95
--- NOTE | 2025-06-09 08:32 | S_PTH ---
PATIENT: Chioma Kline LOC: [place] Fung#:[id number] AGE/SX: 45/F ROOM: RE06/09/[address]: Fabrizio Palencia MD : 1980 BED: DIS: 06/09/2025 SPEC #: [id number] RECD: 06/09/25 09:49 STATUS: MARILYN REZee #: [id number] SAUNDRA: 06/09/25 08:[address]: Fabrizio Palencia DEPT: [facility] Surgical RECD BY: Mckenna Quevedo ENTERED: 06/09/25 09:49 SP TYPE: Surgical OTHR DR: Annmarie Montes De Oca, BUSINESS SUPPORT LIAISON Tissues: A - Small Bowel Bx Procedures: Hematoxylin and Eosin Stain Gross and Microscopic Level 4 MLH1 MSH2 MSH6 PMS2
[2025-06-09 08:42] VITALS: BP 108/73; PULSE 90; RESP 19; O2SAT 95
[2025-06-09 08:52] VITALS: BP 118/67; PULSE 85; RESP 19; O2SAT 96
== END 2025-06-09 09:02 | disposition home or self-care (01) ==
PROVIDERS: Anesthesiology; Referring Provider Internal Medicine Gastroenterology; Visit Provider Internal Medicine Gastroenterology
PROC: 0DJ08ZZ Inspection of Upper Intestinal Tract, Via Natural or Artificial Opening Endoscopic (ICD-10-PCS; CPT 43239; principal; 2025-06-09 08:15)
DX: C17.1 Malignant neoplasm of jejunum (principal); K92.2 Gastrointestinal hemorrhage, unspecified; D50.9 Iron deficiency anemia, unspecified; K31.84 Gastroparesis
CPT/HCPCS: 43239; 88305; 88342; J2704; J7120

== ENCOUNTER 2025-06-28 07:29 | Outpatient (RCR) | payer OTHER, SELFPAY ==
[2025-06-28] VITALS (9 sets, daily range): BP systolic 106–118; BP diastolic 70–78; PULSE 72–91; RESP 15–16; TEMP 36.3–37.1; O2SAT 92–100
[2025-06-28] MEDS: ACETAMINOPHEN 325 MG TABLET 650 MG PO (07:52)
[2025-06-28] MEDS: diphenhydrAMINE HCl CAP 25 MG CAPSULE PO (07:53)
[2025-06-28] MEDS: FUROSEMIDE INJ 40 MG/4 ML VIAL 20 MG IV PUSH (10:23)
== END 2025-09-26 23:59 | disposition home or self-care (01) ==
LOC: ANHCPCTRAN 07:29
PROVIDERS: Visit Provider Internal Medicine Hematology & Oncology
DX: D64.9 Anemia, unspecified (principal)
CPT/HCPCS: 36415; 36430; 86922; 96374; A9270; J1938; P9016

== ENCOUNTER 2025-06-29 13:40 | Inpatient (IN) | payer OTHER, SELFPAY ==
[2025-06-28 08:40] VITALS: BMI 27.1
--- NOTE | 2025-06-28 09:19 | PC.NURSE ---
Report to the Outpatient Waiting Room, entrance under the green pavilion located off [facility], at 1200 on 06-28-25. Planned Procedure Time: 1400.? Time changes happen often and if your time is changed the preop area will call you the afternoon before. - You and your visitor will be asked to self-screen and do not enter if you have any COVID symptoms. Please call surgeon if you need to reschedule. - A mask is optional within the hospital at this time. Patients may have clear liquids (water, carbonated beverages, clear teas, apple juice) until 3 hours prior to surgery with a maximum of 20 ounces. 1100 - No food from midnight until time of surgery and no smoking, or chewing tobacco (or any form of nicotine). No chewing gum, candy or mints. - Infants may have breast milk until 4 hours before surgery, formula 6 hours prior to surgery. - Children will be allowed to drink immediately following surgery.? If applicable, please bring a bottle or sippy cup to assist with drinking. Juice, water, soda, and popsicles are readily available.? For infants on formula, please bring formula the day of surgery.? Pacifiers are allowed. Take only the following medications with a SIP of water on the morning of surgery: atomoxetine, ciprofloxacin, flagyl, zofran if needed DO NOT STOP ANY OF YOUR OTHER PRESCRIPTION MEDICATIONS PRIOR TO SURGERY EXCEPT THE FOLLOWING Hold all vitamins and supplements for 3 days per anesthesiologist. Medications to discontinue per physician: N/A Please no make-up, nail pashto, hairspray, perfume, deodorant, or body powder the day of surgery.? No jewelry (including any body piercings) or valuables the day of surgery, leave them at home.? Please take a shower or bath the night before, or the morning of, surgery with an antibacterial soap.? Wear comfortable, loose fitting clothing.? Children are encouraged to wear pajamas. - Jewelry must be removed prior to entering the operating room.? Rings and piercings that are not removed may be cut off. - The hospital will not accept responsibility for valuables.? - Please leave all valuables, including medications, at home the day of surgery. If you are going home after surgery, a licensed bulk tank driver must drive you home.? - NO public transportation without another adult if you receive anesthesia. - We recommend that an adult stay with you for 24 hours following discharge. - We also recommend that you do not drive, make important decision, drink alcoholic beverages, or take any drugs that were not prescribed by your health care provider for at least 24 hours after your discharge time. For Pediatric surgeries, we recommend two adults accompany the child home. Follow any additional instructions given to you from your surgeon. Telephone instructions given to Chioma Kline and asked if any additional questions and then verbalized understanding. Patient advised to call surgeon office or pre surgery nurse liaison [phone] if any additional questions.
[2025-06-29] VITALS (11 sets, daily range): BP systolic 113–130; BP diastolic 61–81; PULSE 89–98; RESP 12–19; TEMP 36.3–36.6; O2SAT 98–100
--- OUTSIDE RECORDS SUMMARY | 2025-06-29 03:40 | XMS_ITS | Clinical Summary ---
Author Organization [facility] Lenore Leal Address [address] [place] [address] Care Team Providers Care Budget Assistant Name Role Phone Mark Burdick MD Primary Care Provider [phone] Allergies No known active allergies Medications traZODone [...] 40 mg by mouth daily. 11/30/2024 Active citalopram (CeleXA) 10 mg tablet Take 10 mg by mouth daily. 06/11/2025 Active Active Problems No known active problems Encounters Date Type Department Care Team Description 06/28/2025 Orders Only [facility] Oncology and Hematology - [facility] [address] [place] [address] Alex Locke MD 06/27/2025 Orders Only [facility] Oncology and Hematology - [place] [address] [place] [address] Alex Locke MD Chronic anemia (Primary Dx) 06/27/2025 Orders Only [facility] Oncology and Hematology - [place] [address] [place] [address] Alex Locke MD Chronic anemia (Primary Dx) 06/16/2025 7:52 AM CDT - 06/16/2025 11:59 PM CDT Hospital Encounter [facility] Imaging Services [facility] [address] [place] [address] Alex Locke MD Discharge Disposition: Home or Self Care 06/15/2025 Orders Only [facility] Oncology and Hematology - [place] [address] [place] [address] Alex Locke MD 06/14/2025 11:30 AM CDT Office Visit [facility] Oncology and Hematology - [place] [address] [place] [address] Alex Locke MD Small bowel cancer (CMS/HCC) (Primary Dx); Chronic anemia 06/13/2025 External Device Data STL ABSTRACTION Provider, Abstract 06/09/2025 Abstract [facility] Oncology and Hematology - [place] [address] [place] [address] Alex Locke MD 05/24/2025 External Device Data STL ABSTRACTION Provider, Abstract 05/24/2025 External Device Data STL ABSTRACTION Provider, Abstract 05/24/2025 External Device Data STL ABSTRACTION Provider, Abstract 05/19/2025 Telephone [facility] Oncology and Hematology - [address] [place] [address] Alex Locke MD Feeling sick 05/01/2025 Orders Only [facility] Oncology and Hematology - [place] [place] [address] Alex Locke MD 04/26/2025 External Device Data STL ABSTRACTION Provider, Abstract 04/21/2025 Orders Only [facility] Oncology and Hematology - [place] [address] [place] [address] Alex Locke MD 04/14/2025 Abstract [facility] Oncology and Hematology - [facility] [address] [place] [address] Alex Locke MD 04/14/2025 Orders Only [facility] Oncology and Hematology - [place] [address] [place] [address] Alex Locke MD Chronic anemia (Primary Dx) [...] Sign Reading Time Taken Comments Blood Pressure 113/76 06/14/2025 11:17 AM CDT Pulse 99 06/14/2025 11:17 AM CDT Temperature 36.7 C (98.1 F) 06/14/2025 11:17 AM CDT Respiratory Rate 14 06/14/2025 11:17 AM CDT Oxygen Saturation 98% 06/14/2025 11:17 AM CDT Inhaled Oxygen Concentration - - Weight 70.3 kg (155 lb) 06/14/2025 11:17 AM CDT Height 160 cm (5' 3) 06/21/2024 10:56 AM CDT Body Mass Index 27.46 06/21/2024 10:56 AM CDT Plan of Treatment Upcoming Encounters Date Type Department Care Team (Late st Contact Info) Description 07/05/2025 9:45 AM CDT Office Visit [facility] Oncology and Hematology [facility] [address] [facility] [address] [place] [address] Alex Locke MD [address] [facility] [address] [place] [address] Health Maintenance Due Date Last Done Comments Pre-Diabetes and Diabetes Screening 1982 HPV VACCINES (1 - 3-dose series) 1997 DTAP/TDAP/TD VACCINES (1 - Tdap) 2001 HEPATITIS B VACCINES (1 of 3 - 19+ 3-dose series) 2001 HPV/Cotest (21-29) 2003 CERVICAL CANCER SCREENING 2012 HPV/Cotest (30-65) 2012 PAP SMEAR 2012 BREAST CANCER SCREENING 2022 INFLUENZA VACCINE (#1) 2025 10/05/2024, 2022 Procedures Procedure Name Priority Date/Time Associated Diagnosis Comments INFUSION THERAPY Routine 06/28/2025 1:41 PM CDT [facility]F Routine 06/22/2025 8:47 AM CDT Small bowel cancer (CMS/HCC) PET TUMOR OR INFECTION IMG W CT SKB MDTH Routine 06/16/2025 9:29 AM CDT Small bowel cancer (CMS/HCC) POC GLUCOSE Routine 06/16/2025 8:03 AM CDT [facility] NORMAL BLOOD Routine 1:34 PM CDT Small bowel cancer (CMS/HCC) IRON, TIBC, AND PERCENT SATURATION Routine 06/14/2025 12:44 PM CDT CEA Routine 06/14/2025 12:31 PM CDT CBC WITH AUTODIFFERENTIAL Routine 06/14/2025 12:24 PM CDT IRON LEVEL Routine 05/01/2025 4:13 PM CDT CBC WITH AUTODIFFERENTIAL Routine 04/14/2025 1:49 PM CDT from Last 3 Months Results * INFUSION THERAPY (06/28/2025 1:41 PM CDT) Alex Locke MD INFUSION - IV ORDERABLES Final Result * [facility]F (06/22/2025 8:47 AM CDT) Reason for Study To identify mutations relevant to patient's cancer. 06/22/2025 8:47 AM CDT [facility] Genetic Diseases Assessed Cancer 06/22/2025 8:47 AM CDT [facility] Description of Ranges of DNA Sequences Examined 105 gene liquid biopsy 06/22/2025 8:47 AM CDT [facility] Overall Interpretation positive 06/22/2025 8:47 AM CDT [facility] [email or web address] 06/22/2025 8:47 AM CDT [facility] Comment:[facility] link Low Coverage Regions ERRFI1, JAK1, KMT2A, MSH3, SPOP, TERT, TSC2 06/22/2025 8:47 AM CDT [facility] Trial Count 3 06/22/2025 8:47 AM CDT [facility]: Clinical Trial Match 1 Clinical Trial NCT ID: [id number] Clinical Trial Title: Study of Perioperative Dostarlimab in Participants With Untreated T4N0 or Stage III dMMR/MSI-H Resectable Colon Cancer Clinical Trial URL: [email or web address] Clinical Phase: Phase 3 Clinical Trial Matches: 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 Clinical Trial Distance and Location: [address] [place], [place] 06/22/2025 8:47 AM CDT [facility]: Clinical Trial Match 2 Clinical Trial NCT ID: [id number] Clinical Trial Title: TAPUR: Testing the Use of Food and Drug Administration (FDA) Approved Drugs That Target a Specific Abnormality in a Tumor Gene in People With Advanced Stage Cancer Clinical Trial URL: [email or web address] Clinical Phase: Phase 2 Clinical Trial Matches: 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 Clinical Trial Distance and Location: [address] [facility] [place] 06/22/2025 8:47 AM CDT [facility]: Clinical Trial Match 3 Clinical Trial NCT ID: [id number] Clinical Trial Title: Study Of ATRN-119 In Patients With Advanced Solid Tumors Clinical Trial URL: [email or web address] Clinical Phase: Phase 1/Phase 2 Clinical Trial Matches: 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 Clinical Trial Distance and Location: [address] [place], [place] 06/22/2025 8:47 AM CDT [facility] Blood Tumor Mutational Caputa Note bTMB cannot be calculated due to insufficient circulating tumor DNA. 06/22/2025 8:47 AM CDT [facility] Microsatellite Instability Note MSI-High not detected 06/22/2025 8:47 AM CDT [facility] Treatment Implications Note No reportable treatment options found. 06/22/2025 8:47 AM CDT [facility] Blood specimen (specimen) 06/16/2025 7:39 PM CDT Narrative This result has genomic variants that were not included in this document. Alex Locke MD MOLECULAR ORDERABLES Final Resu lt [facility] [address], [address] [place] [address], [facility] [address], [address] [place] [address] * PET TUMOR OR INFECTION IMG W CT SKTita GUSTAFSONTH (06/16/2025 9:29 AM CDT) Anatomical Region Laterality Modality Positron Emissio n Tomography (PET) 06/16/2025 9:30 AM CDT Impressions 06/16/2025 10:54 AM CDT IMPRESSION: 1. Hypermetabolic mass in the jejunum corresponding with known malignancy. Additional focus of hypermetabolism involving a short segment of small bowel in the right lower quadrant without definite anatomic correlate could represent an additional site of disease. Otherwise, no FDG PET evidence of jaky or distant metastatic disease. 2. 2 mm indeterminate right upper lobe pulmonary nodule. DICTATION LOCATION: Location [address] [place] [address] 06/16/2025 10:54 AM CDT EXAMINATION: PET TUMOR OR INFECTION IMG W CT SKB MD DATE: 06/16/2025 9:29 AM REFERRING PHYSICIAN: ALEX LOCKE HISTORY: colon ca; Small bowel cancer (CMS/HCC) Evaluate for initial treatment strategy. WEIGHT: 155 pounds HEIGHT: 5 feet 3 inches TECHNIQUE: 5.4 mCi of F-18 FDG by IV in the right antecubital. PET/CT image acquisition from the head to the mid thighs after 58 minutes post-injection with the CT being low-dose, non-contrast. No separate report for the CT was generated since it was of non-diagnostic quality. Blood glucose level at the time of injection was 93 mg/dL. COMPARISON: No prior study is available for comparison at the time of this dictation. FINDINGS: For reference, SUV max of the mediastinum is 1.8. SUV max of the liver is 2.5. Head and neck: No abnormal FDG uptake is seen in the brain. There are no significantly FDG avid or enlarged cervical lymph nodes. Chest: The aorta and main pulmonary artery are normal in caliber. There is no evidence of coronary artery calcification. No abnormal FDG uptake is seen in the lungs. The lungs are clear of focal consolidation. No pleural effusion is identified. There is no evidence of pneumothorax. 2 mm right upper lobe pulmonary nodule (series 4, image 51). The heart size is normal. No lymphadenopathy is seen. Abdomen and pelvis: Scattered hepatic cysts and too small to characterize hepatic lesions. The gallbladder appears normal. The bile ducts are nondilated. The spleen, pancreas, and adrenal glands appear normal. The kidneys are normal in size. There is no evidence of renal calculus or hydronephrosis. Nodular wall thickening with marked FDG avidity with maximum SUV of 42 centered in a small bowel loop in the left hemiabdomen, likely jejunum. There is a small focal area of moderate FDG avidity involving a loop of small bowel in the right lower quadrant without definite anatomic correlate (series 12, image 163). No bowel obstruction. No free air or free fluid is identified within the abdomen. There is no abdominopelvic lymphadenopathy. Musculoskeletal: No suspicious bone lesion is seen. No abnormal FDG uptake is seen in the osseous structures. Procedure Note Deedee Lombardi MD - 06/16/2025 EXAMINATION: PET TUMOR OR INFECTION IMG W CT SKB MD DATE: 06/16/2025 9:29 AM REFERRING PHYSICIAN: ALEX LOCKE HISTORY: colon ca; Small bowel cancer (CMS/HCC) Evaluate for initial treatment strategy. WEIGHT: 155 pounds HEIGHT: 5 feet 3 inches TECHNIQUE: 5.4 mCi of F-18 FDG by IV in the right antecubital. PET/CT image acquisition from the head to the mid thighs after 58 minutes post-injection with the CT being low-dose, non-contrast. No separate report for the CT was generated since it was of non-diagnostic quality. Blood glucose level at the time of injection was 93 mg/dL. COMPARISON: No prior study is available for comparison at the time of this dictation. FINDINGS: For reference, SUV max of the mediastinum is 1.8. SUV max of the liver is 2.5. Head and neck: No abnormal FDG uptake is seen in the brain. There are no significantly FDG avid or enlarged cervical lymph nodes. Chest: The aorta and main pulmonary artery are normal in caliber. There is no evidence of coronary artery calcification. No abnormal FDG uptake is seen in the lungs. The lungs are clear of focal consolidation. No pleural effusion is identified. There is no evidence of pneumothorax. 2 mm right upper lobe pulmonary nodule (series 4, image 51). The heart size is normal. No lymphadenopathy is seen. Abdomen and pelvis: Scattered hepatic cysts and too small to characterize hepatic lesions. The gallbladder appears normal. The bile ducts are nondilated. The spleen, pancreas, and adrenal glands appear normal. The kidneys are normal in size. There is no evidence of renal calculus or hydronephrosis. Nodular wall thickening with marked FDG avidity with maximum SUV of 42 centered in a small bowel loop in the left hemiabdomen, likely jejunum. There is a small focal area of moderate FDG avidity involving a loop of small bowel in the right lower quadrant without definite anatomic correlate (series 12, image 163). No bowel obstruction. No free air or free fluid is identified within the abdomen. There is no abdominopelvic lymphadenopathy. Musculoskeletal: No suspicious bone lesion is seen. No abnormal FDG uptake is seen in the osseous structures. IMPRESSION: 1. Hypermetabolic mass in the jejunum corresponding with known malignancy. Additional focus of hypermetabolism involving a short segment of small bowel in the right lower quadrant without definite anatomic correlate could represent an additional site of disease. Otherwise, no FDG PET evidence of jaky or distant metastatic disease. 2. 2 mm indeterminate right upper lobe pulmonary nodule. DICTATION LOCATION: Location [address] [place] [address] us Alex Locke MD PE ORDERABLES Final Result * POC GLUCOSE (06/16/2025 8:03 AM CDT) [facility] GLUCOSE POC 93 74 - 99 mg/dL 06/16/2025 8:03 AM CDT [facility] SPECIMEN SOURCE, GLUCOSE POC Whole Blood 06/16/2025 8:03 AM CDT [facility] Blood, whole 06/16/2025 8:03 AM CDT 06/16/2025 8:18 AM CDT us Alex Locke MD POINT OF CARE TESTING Final Res ult [facility] CLIA#[id number] [address] [place] [address] * [facility] XT NORMAL BLOOD (06/14/2025 1:34 PM CDT) Pathologist [facility] 06/14/2025 11:00 PM CDT [facility] Comment:See NGS Report for R esults. Blood specimen (specimen) 06/14/2025 1:34 PM CDT 06/14/2025 9:58 PM CDT us Alex Locke MD MOLECULAR ORDERABLES Final Resu lt [facility] [address], [address] [place] [address], [facility] [address], [address] [place] [address] * IRON, TIBC, AND PERCENT SATURATION (06/14/2025 12:44 PM CDT) Blood us Alex Locke MD CHEMISTRY ORDERABLES Final Resu lt * CEA (06/14/2025 12:31 PM CDT) Blood Alex Locke MD CHEMISTRY ORDERABLES Final Resu lt * CBC WITH AUTODIFFERENTIAL (06/14/2025 12:24 PM CDT) Only the most recent of2 resultswithin the time period is included. Blood us Alex Locke MD HEMATOLOGY ORDERABLES Final Res ult * IRON LEVEL (05/01/2025 4:13 PM CDT) Blood Result [facility] Alex Locke MD CHEMISTRY ORDERABLES Final Resu lt from Last 3 Months Insurance [facility] Care Teams Budget Assistant Relationship Specialty Start Date End Date Mark Burdick MD [address] [place] [id number] PCP - General Family Practice 06/21/24
--- OUTSIDE RECORDS SUMMARY | 2025-06-29 03:40 | XMS_ITS | Clinical Summary ---
Author Organization [facility] Address [address] [place] [id number] Care Team Providers Care Department Of Mathematics Chair Name Role Phone Non-Staff, Provider Primary Care Provider Jole gomez Encounters Date Type Department Care Team Description 06/23/2025 10:30 AM CDT - 06/23/2025 11:59 PM CDT Hospital Encounter [facility] [place] [address] Fabrizio Ornelas MD Discharge Disposition: Home or Self Care (Routine Discharge) 06/23/2025 9:30 AM CDT - 06/23/2025 10:29 AM CDT Hospital Encounter [facility] [address] [place] [address] Fabrizio Ornelas MD Discharge Disposition: Home or Self Care (Routine Discharge) 06/23/2025 Travel from Last 3 Months Social History Tobacco Use Types Packs/Day Years Used Date Smoking Tobacco: Never Assessed Comments Unknown Sex and Gender Information Value Date Recorded Sex Assigned at Female 06/19/2025 11:30 AM CDT Legal Sex Female 11:30 AM CDT Gender Identity Not on file Sexual Orientation Not on file Plan of Treatment Health Maintenance Due Date Last Done Comments Cervical Cancer Screening Pa p Smear (Age 30 to 64) Every 3 Years 1982 Annual Physical 1985 Hepatitis C 2000 DTaP, Tdap and Td Vaccines ( 1 - Tdap) 2001 Hepatitis B Vaccines (1 of 3 - 19+ 3-dose series) 2001 HPV Vaccines (1 - 3-dose SCD M series) 2009 Cervical Cancer Screening Pa p with HPV Testing (Age 30 to 64) Every 5 Years 2012 Cervical Cancer Screening with HPV 2012 Mammogram Screening 2022 COVID-19 Vaccine (2023-2 5 season) 2024 Meningococcal B Vaccine Aged Out No l onger eligible based on patient's age to complete this topic Meningococcal Vaccine Aged Out No samir primo eligible based on patient's age to complete this topic Pneumococcal Vaccine: Pediat rics (0 to 5 Years) and At-Risk Patients (6 to 49 Years) Aged Out No longer eligible b ased on patient's age to complete this topic RSV Immunizations Under 20 Months Aged Out No longer eligible based on patient's age to complete this topic Procedures Procedure Name Priority Date/Time Associated Diagnosis Comments XR SMALL BOWEL Routine 06/23/2025 3:09 PM CDT Gastrointestinal hemorrhage CT ABD+PEL W CON Routine 06/23/2025 10:0 1 AM CDT Malignant neoplasm of small intestine, unspecified (CMS/HCC HHS/HCC) Gastrointestinal hemorrhage, unspecified from Last 3 Months Results * XR SMALL BOWEL (06/23/2025 3:09 PM CDT) Anatomical Region Laterality Modality Abdomen, Pelvis Radiographic Nupur ging 06/23/2025 4:33 PM CDT Impressions 06/23/2025 4:36 PM CDT IMPRESSION: Retained capsule endoscopy of the left upper quadrant. Moderate retained fecal material throughout the large bowel, no evidence of small or large bowel dilatation. Slow migration of contrast into the large bowel. Contrast reaches the large bowel between 3 and 3 1/2 hours. No ej small bowel dilatation. Jejunal folds and ileal folds appear grossly within normal limits. Ordered By: FABRIZIO ORNELAS Interpreted By: Osmany Pina, 06/23/2025 4:33 PM Narrative 06/23/2025 4:36 PM CDT [address] [address] EXAMINATION: Small bowel follow-through EXAM DATE: 06/23/2025 11:04 AM REASON FOR EXAM: bleeding Abnormal capsule endoscopy COMPARISON: None TECHNIQUE: Detail Drafter image of the abdomen was obtained. This was followed by imaging of the abdomen at 20, 40, 60, 90, 120, 150, 180, 210 minutes after administration. FINDINGS: Detail Drafter image of the abdomen demonstrates retained capsule endoscopy of the left upper quadrant. Moderate retained fecal material throughout the large bowel, no evidence of small or large bowel dilatation. Contrast in the urinary collecting system consistent with recent intravenous contrast administration. Postcontrast images demonstrate slow migration of contrast into the large bowel. Contrast reaches the large bowel between 3 and 3 1/2 hours. No ej small bowel dilatation. Jejunal folds and ileal folds appear grossly within normal limits. Procedure Note Osmany Pina MD - 06/23/[address] [address] EXAMINATION: Small bowel follow-through EXAM DATE: 06/23/2025 11:04 AM REASON FOR EXAM: bleeding Abnormal capsule endoscopy COMPARISON: None TECHNIQUE: Detail Drafter image of the abdomen was obtained. This was followed byimaging of the abdomen at 20, 40, 60, 90, 120, 150, 180, 210 minutes afteradministration. FINDINGS: Detail Drafter image of the abdomen demonstrates retained capsule endoscopy of theleft upper quadrant. Moderate retained fecal material throughout the large bowel, no evidenceof small or large bowel dilatation. Contrast in the urinary collecting system consistent with recentintravenous contrast administration. Postcontrast images demonstrate slow migration of contrast into the largebowel. Contrast reaches the large bowel between 3 and 3 1/2 hours. Nofrank small bowel dilatation. Jejunal folds and ileal folds appear grossly within normal limits. IMPRESSION: Retained capsule endoscopy of the left upper quadrant. Moderate retained fecal material throughout the large bowel, no evidenceof small or large bowel dilatation. Slow migration of contrast into the large bowel. Contrast reaches thelarge bowel between 3 and 3 1/2 hours. No ej small bowel dilatation. Jejunal folds and ileal folds appear grossly within normal limits. Ordered By: FABRIZIO ORNELAS Interpreted By: Osmany Pina, 06/23/2025 4:33 PM us Fabrizio Ornelas MD FLUOROSCOPY Fin al Result * CT ABD+PEL W CON (06/23/2025 10:01 AM CDT) Anatomical Region Laterality Modality Abdomen Computed Tomogra phy 06/24/2025 6:41 PM CDT Impressions 06/24/2025 6:46 PM CDT IMPRESSION: ===== 1. 5.2 cm heterogeneously enhancing mass within a loop of small bowel in the left upper quadrant of the abdomen concerning for neoplasm. Tissue sampling and/or further evaluation with PET/CT recommended. 2. Multiple hypoenhancing lesions in the liver. Some are well circumscribed and measure near water density. Some have poorly defined borders and are of indeterminate density. Metastatic disease is not excluded. Referred By: FABRIZIO ORNELAS Interpreted By: Kahlil Webber MD, 06/24/2025 6:41 PM Narrative 06/24/2025 6:46 PM CDT [address] [address] EXAMINATION: CT Abdomen and Pelvis with contrast EXAM DATE/TIME: 06/23/2025 9:34 AM REASON FOR EXAM: malignant neoplasm of small intestine, unspecified Abdominal pain. Anemia. COMPARISON: None TECHNIQUE: Axial CT images of the abdomen and pelvis are obtained following uneventful intravenous administration of 100 cc Isovue-370. Subsequent coronal and sagittal reformatted sequences are created for evaluation. A dose lowering technique was used for this procedure, which may include, but is not limited to, dose reduction technique, automated exposure control, iterative reconstruction, ALARA (As Low As Reasonably Achievable), or Image Gently techniques. FINDINGS: Lung bases are clear. No pleural effusion. Heart size normal. No pericardial effusion. Liver and spleen normal in size and surface contour. Multiple hypoenhancing lesions are seen in the liver. Some are well circumscribed and measure near water density internally. Some have poorly defined borders and are of indeterminate density. Further evaluation with CT or MRI liver mass protocol be recommended. Gallbladder is contracted. Pancreas and adrenal glands unremarkable. Kidneys demonstrate symmetric uptake of contrast. No hydronephrosis or obstructive uropathy on either side. Abdominal aorta normal in caliber throughout. There is no evidence of bowel obstruction. There is dilatation of a loop of small bowel in the left upper quadrant of the abdomen. There is a heterogeneously enhancing eccentric mass within this dilated loop of bowel which measures 5.2 x 4.6 x 3.6 cm. Remainder of bowel normal in caliber. Appendix normal. Uterus and adnexal structures unremarkable. No free fluid in the pelvis. Bone level imaging shows no destructive osseous lesions. ===== Procedure Note Kahlil Webber MD - 06/24/2025 [place] [address] EXAMINATION: CT Abdomen and Pelvis with contrast EXAM DATE/TIME: 06/23/2025 9:34 AM REASON FOR EXAM: malignant neoplasm of small intestine, unspecified Abdominal pain. Anemia. COMPARISON: None TECHNIQUE: Axial CT images of the abdomen and pelvis are obtainedfollowing uneventful intravenous administration of 100 cc Isovue-370.Subsequent coronal and sagittal reformatted sequences are created forevaluation. A dose lowering technique was used for this procedure, whichmay include, but is not limited to, dose reduction technique, automatedexposure control, iterative reconstruction, ALARA (As Low As ReasonablyAchievable), or Image Gently techniques. FINDINGS: Lung bases are clear. No pleural effusion. Heart size normal.No pericardial effusion. Liver and spleen normal in size and surface contour. Multiplehypoenhancing lesions are seen in the liver. Some are well circumscribedand measure near water density internally. Some have poorly definedborders and are of indeterminate density. Further evaluation with CT orMRI liver mass protocol be recommended. Gallbladder is contracted.Pancreas and adrenal glands unremarkable. Kidneys demonstrate symmetricuptake of contrast. No hydronephrosis or obstructive uropathy on eitherside. Abdominal aorta normal in caliber throughout. There is no evidenceof bowel obstruction. There is dilatation of a loop of small bowel in theleft upper quadrant of the abdomen. There is a heterogeneously enhancingeccentric mass within this dilated loop of bowel which measures 5.2 x 4.6x 3.6 cm. Remainder of bowel normal in caliber. Appendix normal. Uterusand adnexal structures unremarkable. No free fluid in the pelvis. Bonelevel imaging shows no destructive osseous lesions. ===== IMPRESSION: ===== 1. 5.2 cm heterogeneously enhancing mass within a loop of small bowel inthe left upper quadrant of the abdomen concerning for neoplasm. Tissuesampling and/or further evaluation with PET/CT recommended. 2. Multiple hypoenhancing lesions in the liver. Some are wellcircumscribed and measure near water density. Some have poorly definedborders and are of indeterminate density. Metastatic disease is notexcluded. Referred By: FABRIZIO ORNELAS Interpreted By: Kahlil Webber MD, 06/24/2025 6:41 PM Fabrizio Ornelas MD CT Fin al Result from Last 3 Months Insurance Care Teams Department Of Mathematics Chair Relationship Specialty Start Date End Date Non-Staff, Provider PCP - General UNKNOWN PHYSICIAN SPECIALTY 06/23/25
--- NOTE | 2025-06-29 08:55 | WPDHPUPDATE1 ---
History and Physical Update Update Date/Time: 06/29/25 08:55 History and Physical has been reviewed, including an updated exam of the patient. There are NO changes in the patient's condition. Risks, benefits, and alternatives have been discussed and questions answered. Patient agrees to proceed with procedure.
--- NOTE | 2025-06-29 10:40 | ECG_ITS ---
Test Date: 2025-06-29 12:00:51 Measurements Intervals [place] Rate: 80 P: 61 MN: 158 QRS: 20 QRSD: 86 T: 29 QT: 381 QTc: 440 Interpretive Statements SINUS RHYTHM NORMAL ECG Compared to ECG 06/13/2024 21:58:02 No significant changes Electronically Signed On 06-29-2025 12:11:17 CDT by True Dimas D.O.
--- NOTE | 2025-06-29 11:46 | WPDANESEPPF ---
Anes - Initial Pre Proc Eval Procedure: Operation Date: 06/29/25 14:00 Proposed Procedures p Hand Assisted Laparoscopic Small Bowel Resection - Nuha Jones MD Date/Time: 06/29/25 11:46 Surgeon: Nuha Jones MD Pre Op Diagnosis: small bowel adenocarcinoma Patient Data Age: 45 Gender: F Height: 1.6 m Weight: 70.2 kg Last Vital Signs Temp 36.3 C L 06/29/25 11:25 Pulse 98 06/29/25 11:25 Resp 18 06/29/25 11:25 BP 118/72 06/29/25 11:25 Pulse Ox 100 06/29/25 11:25 O2 Del Method Room Air 06/29/25 11:25 Allergies Allergy/AdvReac Type Severity Reaction Status Date / Time No Known Allergies Allergy Verified 06/29/25 11:54 Home Medications ?Medication ?Instructions ?Recorded ?Confirmed ?Type ferrous sulfate 325 mg (65 mg 325 mg PO BID #60 tabs 06/14/24 06/29/25 Rx iron) tablet,delayed release atogepant 30 mg tablet (Qulipta) 30 mg PO DAILY PRN MIGRAINES 07/07/24 06/28/25 History ergocalciferol (vitamin D2) 1,250 50,000 unit PO WEEKLY 07/07/24 06/29/25 History mcg (50,000 unit) capsule atomoxetine 40 mg PO DAILY 10/12/24 06/29/25 History ondansetron 4 mg disintegrating 4 mg PO Q8H PRN nausea and 12/11/24 06/28/25 Rx tablet vomiting #14 tabs citalopram 10 mg tablet 10 mg PO DAILY 05/15/25 06/29/25 History semaglutide (weight loss) 0.25 0.25 mg subcut WEEKLY 06/08/25 06/28/25 History mg/0.5 mL subcutaneous pen injector (Wegovy) Held on 06/28/25. Instructions: Patient Condition ciprofloxacin HCl 500 mg tablet 500 mg PO .COMPLEX #1 tablet 06/21/25 06/29/25 Rx metronidazole 500 mg tablet 500 mg PO .COMPLEX #3 tabs 06/21/25 06/29/25 Rx zolpidem 10 mg tablet 10 mg PO HS 06/28/25 06/29/25 History Patient hx anesthesia problems: none Family hx anesthesia problems: none Results Review: All pre-operative results and documents have been reviewed as part of the pre-operative evaluation. [facility] Past Medical History Medical History Adenocarcinoma of small bowel GIB (gastrointestinal bleeding) Depression with anxiety Family history of colon cancer in father Migraine Anemia, hemolytic, G6PD deficiency Surgical History Surgical History History of endometrial ablation History of breast lift History of abdominoplasty History of bilateral tubal ligation with 3rd History of x3 Family History Family History Sibling G6PD deficiency Social History Social History Social History: Smoking status: Never smoker Second hand tobacco smoke exposure: No Alcohol intake: never Substance use: never Substance use type: does not use Do You Feel Safe in your Home?: Yes Lack of Transportation: No Lack of Food: Never True Current Housing: I Have Housing Concerned About Future Housing: No Difficulty Paying Gas/Electric Bills: No Difficulty Paying for Meds: No Currently Unemployed: No Education: Bachelor's Degree Difficulty w/ Childcare or Family Care: No Living arrangements: with family Spiritual care concerns: No Anes - Eval Final PreProcedure Day of Procedure 06/29/25 11:46 Patient weight: overweight Heart: regular rate and rhythm Lungs: clear to auscultation Airway: Mallampati scale class II Neurological: alert and oriented Last oral intake: >/= 8 hours ASA classification: III Emergent: no Anesthetic plan: proceed Anesthesia type and monitoring: general ETT and standard monitoring Results Review: All pre-operative results and documents have been reviewed as part of the pre-operative evaluation. Informed Consent: The patient's anesthetic plan and its attendant risks and benefits were discussed with the patient/family/POA. Questions were solicited and answers provided to the satisfaction of the patient/family/POA.
[2025-06-29 11:49] LABS: Hematocrit 28.9 % (37.0-47.0); Hemoglobin 9.0 g/dL (12.0-15.0)
[2025-06-29] MEDS: LACTATED RINGERS 1,000 ML 30 ML IV CONT (11:50)
[2025-06-29] MEDS: ACETAMINOPHEN 500 MG TABLET 1000 MG PO (11:50)
[2025-06-29 12:05] LABS: BEDSIDEPREGUCG Negative (Negative)
[2025-06-29] MEDS: ceFAZolin 2 GM in SODIUM CHLORIDE 0.9% IV 50 ML 100 ML IVPB (12:28)
[2025-06-29] MEDS: metroNIDAZOLE 500 MG/ISO 100ML 500 MG/100 ML BAG 100 MG IVPB (12:47)
--- NOTE | 2025-06-29 13:14 | S_PTH ---
PATIENT: Chioma Kline LOC: [id number] U#:[id number] AGE/SX: 45/F ROOM: 346 RE06/29/[address]: Nereida Barker APRN : 1980 BED: 01 DIS: 07/03/2025 SPEC #: [id number] RECD: 06/29/25 14:17 STATUS: MARILYN JUSTICE #: [id number] SAUNDRA: 06/29/25 13:[address]: Nuha Jones DEPT: [facility] Surgical RECD BY: Mckenna Quevedo ENTERED: 06/29/25 14:18 SP TYPE: Surgical OTHR DR: Annmarie Montes De Oca, NNP Tissues: A - Colon Segment Tumor Procedures: Hematoxylin and Eosin Stain Gross and Microscopic Level 6 MLH1 MSH2 MSH6 PMS2
--- NOTE | 2025-06-29 13:43 | P.OP_ITS ---
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 After adequate induction of general anesthesia, the patient was prepped and draped in the normal sterile fashion. A time-out was then done to verify the patient's identity, as well as the procedure being performed. Began by esperanzai zing the anticipated hand port incision in the upper midline. I then made an incision in the dermis and this was carried down to the level of the fascia. The fascia was then opened with the Bovie cautery and access was gained into the peritoneal cavity. Hand port was then placed. The abdomen was then insufflated through the hand port. I then placed the laparoscoped through the hand port site and noted omental adhesions to the midline. Under direct visualization, I placed 2 further 5 mm ports in the right mid and right lower abdomen. I then took down these omental adhesions using the LigaSure device. I was then able to run the entirety of the small intestine. I started distally at the area of the cecum and terminal ileum and worked my way proximally. In the ileum and mid and proximal jejunum were noted to be completely unremarkable and decompressed. The proximal jejunum was noted to be dilated and there was a large mass in the proximal jejunum. Proximal to the mass, there was some tattooing. The stomach and duodenum were also noted to be dilated. Using the LigaSure device I was able to free up the area around the mass. I was then able to extracorporealyze the mass through the upper midline hand port. I then picked a transection site for our resection. Distally, I had good length and picked an area in the distal jejunum approximately 10-15 cm from the mass. Proximally, there was not as much length as the mass was located near the retroperitoneum and 4th portion of the duodenum. I was able to find an area approximately 5-10 cm from the mass that would still allow us to do a stapled anastomosis. The areas were then transected with a 75 RAHUL stapler. A wide mesenteric resection was then done with the LigaSure device. I then performed a [id number] functional end-to-end anastomosis between the proximal jejunum and the distal jejunum. This was again done with the 75 RAHUL stapler and a TA 60 stapler. I then did over-sew the staple line with interrupted 3-0 silk sutures. I then examined the rest of the abdomen and no other gross pathology was noted. The liver was noted to be grossly unremarkable. I then closed the hand port incision with a 0 PDS at the fascial level. Subcutaneous tissue was closed with 3-0 Vicryl suture. The dermis and 2 port sites were closed with 4-0 Monocryl subcuticular suture. The patient tolerated the procedure well and was extubated postoperative. She will be transferred to the recovery room in stable condition. Estimated Blood Loss 25 Pathology Yes Complications No immediate complications Condition Stable Disposition PACU [facility] Billing Surgery - Charge Forward: Surgery Billing
[2025-06-29] MEDS: fentaNYL CITRATE INJ (*CRX) 100 MCG/2 ML VIAL 25 MCG IV PUSH ×4 (14:18→14:35)
--- NOTE | 2025-06-29 15:35 | ADMGEN ---
This patient, Chioma Kline, was admitted to Medical Room 346-01. Patient/family oriented to hospital policies and general routines including ID bracelet, bed and alarms, visiting hours, pain management, procedures, bathroom and other care routines, personal items, smoking policy, room service/diet, and visiting hours. Information on how to activate the Rapid Response Team has been discussed. Patient/Family are encouraged to report perceived risks to care and to ask questions if they do not understand what they are told or what they should do.
[2025-06-29] MEDS: LACTATED RINGERS 1,000 ML 100 ML IV CONT (15:44)
[2025-06-29] MEDS: HYDROcodone/acetaminophen (*CRX) 5-325 MG TABLET 1 TAB PO ×2 (16:04→19:34)
[2025-06-29] MEDS: ceFAZolin 1 GM in SODIUM CHLORIDE 0.9% IV 50 ML 100 ML IVPB (19:34)
[2025-06-29] MEDS: FAMOTIDINE 20 MG/2 ML VIAL IV PUSH (21:10)
[2025-06-30] MEDS: HYDROcodone/acetaminophen (*CRX) 5-325 MG TABLET 1 TAB PO ×3 (00:30→16:01)
[2025-06-30] MEDS: ZOLPIDEM TARTRATE (*CRX) 5 MG TABLET 10 MG PO ×2 (00:33→23:28)
[2025-06-30] MEDS: LACTATED RINGERS 1,000 ML 100 ML IV CONT (02:31)
[2025-06-30] MEDS: ceFAZolin 1 GM in SODIUM CHLORIDE 0.9% IV 50 ML 100 ML IVPB (03:15)
[2025-06-30 05:08] VITALS: BP 115/76; PULSE 100; RESP 18; TEMP 36.5; O2SAT 99
[2025-06-30 05:57] LABS: Hematocrit 24.4 % (37.0-47.0); Hemoglobin 7.5 g/dL (12.0-15.0); Mean Corpuscular HGB Conc 30.7 g/dl (32-36); Mean Corpuscular Hemoglobin 25.4 pg (26-34); Mean Corpuscular Volume 82.7 fl (80-100); Platelet Count Result 385 k/mm3 (150-375); Red Blood Count 2.95 M/mm3 (4.2-5.4); White Blood Count 10.5 K/mm3 (4.5-10.0)
[2025-06-30 06:19] LABS: Anion Gap 4 mmol/L (4-12); Blood Urea Nitrogen 6 mg/dL (7-17); Calcium 8.5 mg/dL (8.4-10.2); Carbon Dioxide 24 mmol/L (22-30); Chloride 105 mmol/L (98-107); Estimated CRCL calculation 89 ml/min; Estimated Glomerular Filt Rate > 60; Glucose 101 mg/dL (65-110); Potassium 3.6 mmol/L (3.4-5.0); Sodium 133 mmol/L (137-145)
--- NOTE | 2025-06-30 07:49 | WPDPN ---
Progress Note: A&P Assessment and Plan (1) Adenocarcinoma of small bowel: Code(s): C17.9 - Malignant neoplasm of small intestine, unspecified Status: Acute Assessment and Plan: doing well, await path, encourage OOB/IS, ADAT Subjective Date/time seen: 06/30/25 07:49 Interval history: feels ok, some incisional soreness, surinder clears Review of Systems Review of Systems: All systems reviewed & are unremarkable except as noted in HPI and below Exam Const: General: cooperative, comfortable and no acute distress Resp: Auscultation: clear to auscultation bilaterally Cardio: Rate: regular rate Rhythm: regular rhythm GI: Inspection: normal to inspection, distended and incision GI Palp: Yes abdominal tenderness, Yes Soft to palpation and Yes Tenderness to palpation present (GI) Objective Data Vital Signs Vital Signs: Vital Signs - 24 hr 06/29/25 11:25 06/29/25 13:56 06/29/25 14:10 Temperature 36.3 C L 36.5 C Pulse Rate 98 96 90 Respiratory Rate 18 12 16 Blood Pressure 118/72 130/73 125/80 Pulse Oximetry 100 99 100 Oxygen Delivery Room Air Simple Face Mask Simple Face Mask Oxygen Flow Rate 8 8 06/29/25 14:25 06/29/25 14:40 06/29/25 14:55 Temperature Pulse Rate 92 96 96 Respiratory Rate 19 17 17 Blood Pressure 126/80 113/72 114/81 Pulse Oximetry 100 100 99 Oxygen Delivery Simple Face Mask Room Air Room Air Oxygen Flow Rate 8 06/29/25 15:10 06/29/25 15:25 06/29/25 16:00 Temperature 36.5 C Pulse Rate 90 89 Respiratory Rate 17 16 Blood Pressure 117/75 113/70 Pulse Oximetry 99 98 Oxygen Delivery Room Air Room Air Oxygen Flow Rate 06/29/25 20:06 06/29/25 20:26 06/29/25 23:25 Temperature 36.5 C 36.6 C Pulse Rate 95 89 Respiratory Rate 18 16 Blood Pressure 122/61 116/69 Pulse Oximetry 100 100 100 Oxygen Delivery Autopap Oxygen Flow Rate 06/30/25 05:08 Temperature 36.5 C Pulse Rate 100 Respiratory Rate 18 Blood Pressure 115/76 Pulse Oximetry 99 Oxygen Delivery Oxygen Flow Rate Intake/Output Intake/Output: Intake & Output 06/27/25 06/28/25 06/29/2506/30/25 23:59 23:59 23:59 23:59 Intake Total 950 1400 Output Total 1300 Balance 950 100 Meds/Results Medications: Active Medications Generic Name Dose Route Start Last Admin Trade Name Freq PRN Reason Stop Dose Admin Hydrocodone Bitart/Acetaminophen 1 tab 06/29/25 13:39 06/30/25 00:30 Hydrocodone/Acetaminophen (*Crx) 5-325 Mg Tablet PO 1 tab Q4H PRN Administration Pain Rated 4-6 Enoxaparin Sodium 40 mg 06/30/25 09:00 Enoxaparin 40 Mg/0.4 Ml Syringe SUB-Q DAILY ANALY Famotidine 20 mg 06/29/25 21:00 06/29/25 21:10 Famotidine 20 Mg/2 Ml Vial IV PUSH 20 mg Q12HR ANALY Administration Hydromorphone HCl 1 mg 06/29/25 13:39 Hydromorphone Hcl Inj (*Crx) 1 Mg/Ml Syr IV PUSH Q2H PRN Breakthrough Pain Rated 7-10 or NPO Hydromorphone HCl 0.5 mg 06/29/25 13:39 Hydromorphone Hcl Inj (*Crx) 1 Mg/Ml Syr IV PUSH Q2H PRN Breakthrough Pain Rated 4-6 or NPO Lactated Ringer's 1,000 mls @ 100 mls/hr 06/29/25 13:40 06/30/25 02:31 Lr - Lactated Ringers Iv IV CONT 100 mls/hr .Q10H ANALY Administration Miscellaneous Information 1 each 06/29/25 00:01 Qulipta 30mg Tablets Are Nonformulary, Can Patient Use Home Supply? XX 07/29/25 00:00 CLARIFY ANALY Naloxone HCl 0.1 mg 06/29/25 13:39 Naloxone Hcl 0.4 Mg/Ml Vial IV PUSH Q2M PRN Opiate Reversal Non-Formulary Medication 30 mg 06/29/25 15:15 Atogepant [Qulipta] PO DAILY PRN MIGRAINES Ondansetron HCl 4 mg 06/29/25 13:39 Ondansetron Inj 4 Mg/2 Ml Vial IV PUSH Q4H PRN Nausea And Vomiting Zolpidem Tartrate 10 mg 06/30/25 00:21 06/30/25 00:33 Zolpidem Tartrate (*Crx) 5 Mg Tablet PO 10 mg HS PRN Administration Insomnia Labs Labs: Laboratory Results - last 24 hr 06/29/25 06/29/25 06/30/25 11:34 11:44 05:48 WBC 10.5 H RBC 2.95 L Hgb 9.0 L D 7.5 L Hct 28.9 L 24.4 L MCV 82.7 MCH 25.4 L D MCHC 30.7 L RDW 19.0 H Plt Count 385 H MPV 9.5 Sodium 133 L Potassium 3.6 Chloride 105 Carbon Dioxide 24 Anion Gap 4 BUN 6 L D Creatinine 0.66 L Estim Creat Clear Calc 89 Estimated GFR > 60 Glucose 101 Calcium 8.5 POC Urine HCG, Qual Negative
[2025-06-30] MEDS: HYDROmorphone HCL INJ (*CRX) 1 MG/ML SYR IV PUSH ×2 (07:54→13:19)
[2025-06-30] MEDS: ENOXAPARIN 40 MG/0.4 ML SYRINGE SUB-Q (07:58)
[2025-06-30] MEDS: FAMOTIDINE 20 MG/2 ML VIAL IV PUSH ×2 (07:59→20:45)
[2025-06-30 14:26] VITALS: BP 124/60; PULSE 76; RESP 16; TEMP 36.4; O2SAT 100
[2025-06-30 20:12] VITALS: BP 117/72; PULSE 90; RESP 18; TEMP 36.9; O2SAT 100
[2025-06-30] MEDS: HYDROmorphone HCL INJ (*CRX) 1 MG/ML SYR 0.5 MG IV PUSH (20:45)
[2025-07-01 00:25] VITALS: BP 119/81; PULSE 81; RESP 16; TEMP 36.5; O2SAT 100
[2025-07-01 05:07] VITALS: BP 124/78; PULSE 85; RESP 16; TEMP 37.2; O2SAT 98
[2025-07-01 05:43] LABS: Hematocrit 24.5 % (37.0-47.0); Hemoglobin 7.4 g/dL (12.0-15.0); Mean Corpuscular HGB Conc 30.2 g/dl (32-36); Mean Corpuscular Hemoglobin 25.3 pg (26-34); Mean Corpuscular Volume 83.6 fl (80-100); Platelet Count Result 363 k/mm3 (150-375); Red Blood Count 2.93 M/mm3 (4.2-5.4); White Blood Count 7.4 K/mm3 (4.5-10.0)
[2025-07-01 06:04] LABS: Anion Gap 5 mmol/L (4-12); Blood Urea Nitrogen 6 mg/dL (7-17); Calcium 8.3 mg/dL (8.4-10.2); Carbon Dioxide 24 mmol/L (22-30); Chloride 105 mmol/L (98-107); Estimated CRCL calculation 88 ml/min; Estimated Glomerular Filt Rate > 60; Glucose 91 mg/dL (65-110); Potassium 3.6 mmol/L (3.4-5.0); Sodium 134 mmol/L (137-145)
[2025-07-01] MEDS: HYDROcodone/acetaminophen (*CRX) 5-325 MG TABLET 1 TAB PO ×4 (07:43→23:11)
[2025-07-01] MEDS: FAMOTIDINE 20 MG/2 ML VIAL IV PUSH ×2 (07:44→20:52)
[2025-07-01] MEDS: ENOXAPARIN 40 MG/0.4 ML SYRINGE SUB-Q (07:44)
[2025-07-01] MEDS: ONDANSETRON INJ 4 MG/2 ML VIAL IV PUSH (10:21)
[2025-07-01] MEDS: HYDROmorphone HCL INJ (*CRX) 1 MG/ML SYR 0.5 MG IV PUSH (10:21)
--- NOTE | 2025-07-01 12:06 | PM.PNGS ---
Progress Note: A&P Assessment and Plan (1) History of resection of small bowel: Code(s): Z90.49 - Acquired absence of other specified parts of digestive tract Status: Acute Assessment and Plan: Wound healing well but patient distended and having nausea. She has no bowel sounds. Prior to surgery she had some nausea and vomiting and evidence of gastric distension on imaging. Appears to have ileus. Will decrease oral intake to small amounts of clear liquids. If starts having vomiting will need nasogastric tube. I explained this to the patient. Hopefully will resolve soon. 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 Continue to monitor. (4) Anemia, hemolytic, G6PD deficiency: Code(s): D55.0 - Anemia due to lihwyde-3-cdvafhdyv dehydrogenase [G6PD] deficiency Status: Chronic Subjective Subjective Date/Time Seen: 07/01/25 12:06 Post Op day: 2 Patient reports: still having pain, voiding w/o difficulty, nausea and afebrile Exam Const: General: cooperative, comfortable, alert, awake and average body habitus Orientation/consciousness: patient oriented x3 GI: Inspection: distended and incision (Healing well) GI Palp: Yes Soft to palpation and Yes Tenderness to palpation present (GI) Auscultation: absent bowel sounds Objective Data Vital Signs Vital Signs: Vital Signs - 24 hr 06/30/25 14:26 06/30/25 20:12 07/01/25 00:25 Temperature 36.4 C 36.9 C 36.5 C Pulse Rate 76 90 81 Respiratory Rate 16 18 16 Blood Pressure 124/60 117/72 119/81 Pulse Oximetry 100 100 100 Oxygen Delivery 07/01/25 05:07 07/01/25 07:40 Temperature 37.2 C Pulse Rate 85 Respiratory Rate 16 Blood Pressure 124/78 Pulse Oximetry 98 Oxygen Delivery Room Air Intake/Output Intake/Output: Intake & Output 06/28/25 06/29/25 06/30/25 08/23/25 23:59 23:59 23:59 23:59 Intake Total 950 1512 941 Output Total 1300 Balance 950 1562 468 Meds/Results Medications: Active Medications Generic Name Dose Route Start Last Admin Trade Name Freq PRN Reason Stop Dose Admin Hydrocodone Bitart/Acetaminophen 1 tab 06/29/25 13:39 07/01/25 11:56 Hydrocodone/Acetaminophen (*Crx) 5-325 Mg Tablet PO 1 tab Q4H PRN Administration Pain Rated 4-6 Enoxaparin Sodium 40 mg 06/30/25 09:00 07/01/25 07:44 Enoxaparin 40 Mg/0.4 Ml Syringe SUB-Q 40 mg DAILY ANALY Administration Famotidine 20 mg 06/29/25 21:00 07/01/25 07:44 Famotidine 20 Mg/2 Ml Vial IV PUSH 20 mg Q12HR ANALY Administration Hydromorphone HCl 1 mg 06/29/25 13:39 06/30/25 13:19 Hydromorphone Hcl Inj (*Crx) 1 Mg/Ml Syr IV PUSH 1 mg Q2H PRN Administration Breakthrough Pain Rated 7-10 or NPO Hydromorphone HCl 0.5 mg 06/29/25 13:39 07/01/25 10:21 Hydromorphone Hcl Inj (*Crx) 1 Mg/Ml Syr IV PUSH 0.5 mg Q2H PRN Administration Breakthrough Pain Rated 4-6 or NPO Naloxone HCl 0.1 mg 06/29/25 13:39 Naloxone Hcl 0.4 Mg/Ml Vial IV PUSH Q2M PRN Opiate Reversal Ondansetron HCl 4 mg 06/29/25 13:39 07/01/25 10:21 Ondansetron Inj 4 Mg/2 Ml Vial IV PUSH 4 mg Q4H PRN Administration Nausea And Vomiting Zolpidem Tartrate 10 mg 06/30/25 00:21 06/30/25 23:28 Zolpidem Tartrate (*Crx) 5 Mg Tablet PO 10 mg HS PRN Administration Insomnia Labs Labs: Laboratory Results - last 24 hr 07/01/25 05:23 WBC 7.4 RBC 2.93 L Hgb 7.4 L Hct 24.5 L MCV 83.6 MCH 25.3 L MCHC 30.2 L RDW 19.5 H Plt Count 363 MPV 9.5 Sodium 134 L Potassium 3.6 Chloride 105 Carbon Dioxide 24 Anion Gap 5 BUN 6 L Creatinine 0.67 L Estim Creat Clear Calc 88 Estimated GFR > 60 Glucose 91 Calcium 8.3 L
[2025-07-01 14:07] VITALS: BP 109/70; PULSE 82; RESP 18; TEMP 36.7; O2SAT 99
[2025-07-01] MEDS: KCL 20 MEQ/D5/0.9% SOD CHL 1,000 ML 100 ML IV CONT ×2 (14:12→23:14)
[2025-07-01 20:29] VITALS: BP 109/68; PULSE 78; RESP 16; TEMP 36.6; O2SAT 98
[2025-07-01 20:49] VITALS: O2SAT 98
[2025-07-01] MEDS: ZOLPIDEM TARTRATE (*CRX) 5 MG TABLET 10 MG PO (23:13)
[2025-07-02 04:35] VITALS: BP 116/78; PULSE 82; RESP 16; O2SAT 100
[2025-07-02] MEDS: HYDROcodone/acetaminophen (*CRX) 5-325 MG TABLET 1 TAB PO ×2 (05:22→12:16)
[2025-07-02 07:28] LABS: Anion Gap 3 mmol/L (4-12); Blood Urea Nitrogen 3 mg/dL (7-17); Calcium 8.3 mg/dL (8.4-10.2); Carbon Dioxide 25 mmol/L (22-30); Chloride 108 mmol/L (98-107); Estimated CRCL calculation 97 ml/min; Estimated Glomerular Filt Rate > 60; Glucose 105 mg/dL (65-110); Potassium 3.8 mmol/L (3.4-5.0); Sodium 136 mmol/L (137-145)
[2025-07-02 07:29] LABS: Hematocrit 24.6 % (37.0-47.0); Hemoglobin 7.4 g/dL (12.0-15.0); Mean Corpuscular HGB Conc 30.1 g/dl (32-36); Mean Corpuscular Hemoglobin 25.5 pg (26-34); Mean Corpuscular Volume 84.8 fl (80-100); Platelet Count Result 362 k/mm3 (150-375); Red Blood Count 2.90 M/mm3 (4.2-5.4); White Blood Count 4.2 K/mm3 (4.5-10.0)
[2025-07-02 08:00] VITALS: PULSE 82; RESP 16; O2SAT 100
[2025-07-02] MEDS: ENOXAPARIN 40 MG/0.4 ML SYRINGE SUB-Q (08:00)
[2025-07-02] MEDS: FAMOTIDINE 20 MG/2 ML VIAL IV PUSH (08:00)
[2025-07-02 13:02] VITALS: BP 125/72; PULSE 80; RESP 16; TEMP 36.7; O2SAT 100
--- NOTE | 2025-07-02 13:50 | PM.PNGS ---
Progress Note: A&P Assessment and Plan (1) History of resection of small bowel: Code(s): Z90.49 - Acquired absence of other specified parts of digestive tract Status: Acute Assessment and Plan: Much better today. Bowel function returning nicely now. Advanced to full liquids. Up walking. Possibly home tomorrow if continues to do well. (2) Adenocarcinoma of small bowel: Code(s): C17.9 - Malignant neoplasm of small intestine, unspecified Status: Chronic Assessment and Plan: Pathology on surgical specimen is pending (3) BARI (iron deficiency anemia): Qualifiers: Iron deficiency anemia type: chronic blood loss Qualified Code(s): D50.0 - Iron deficiency anemia secondary to blood loss (chronic) Code(s): D50.9 - Iron deficiency anemia, unspecified Status: Chronic Assessment and Plan: Hemoglobin remains 7.4. Seems to be tolerating this well. (4) Anemia, hemolytic, G6PD deficiency: Code(s): D55.0 - Anemia due to wfnocjq-4-nnescttjf dehydrogenase [G6PD] deficiency Status: Chronic Subjective Subjective Date/Time Seen: 07/02/25 13:50 Post Op day: 3 Patient reports: feels better, pain is less, tolerating liquids well, no flatus, no bowel movement and afebrile Exam Const: General: healthy appearing, comfortable and awake GI: Inspection: no abdominal wall ecchymosis, non-distended, incision (Dry and healing well) and scaphoid GI Palp: Yes Soft to palpation and Yes Tenderness to palpation present (GI) (Minimal tenderness) Auscultation: normoactive bowel sounds Objective Data Vital Signs Vital Signs: Vital Signs - 24 hr 07/01/25 14:07 07/01/25 20:29 07/01/25 20:46 Temperature 36.7 C 36.6 C Pulse Rate 82 78 Respiratory Rate 18 16 Blood Pressure 109/70 109/68 Pulse Oximetry 99 98 Oxygen Delivery Room Air 07/01/25 20:49 07/02/25 04:35 07/02/25 08:00 Temperature Pulse Rate 82 82 Respiratory Rate 16 16 Blood Pressure 116/78 Pulse Oximetry 98 100 100 Oxygen Delivery Room Air Room Air 07/02/25 13:02 Temperature 36.7 C Pulse Rate 80 Respiratory Rate 16 Blood Pressure 125/72 Pulse Oximetry 100 Oxygen Delivery Intake/Output Intake/Output: Intake & Output 06/29/25 06/30/25 07/01/25 07/02/25 23:59 23:59 23:59 23:59 Intake Total 950 2862 2139.3 1900 Output Total 1300 Balance 950 1562 2139.3 1900 Meds/Results Medications: Active Medications Generic Name Dose Route Start Last Admin Trade Name Freq PRN Reason Stop Dose Admin Hydrocodone Bitart/Acetaminophen 1 tab 06/29/25 13:39 07/02/25 12:16 Hydrocodone/Acetaminophen (*Crx) 5-325 Mg Tablet PO 1 tab Q4H PRN Administration Pain Rated 4-6 Enoxaparin Sodium 40 mg 06/30/25 09:00 07/02/25 08:00 Enoxaparin 40 Mg/0.4 Ml Syringe SUB-Q 40 mg DAILY ANALY Administration Famotidine 20 mg 06/29/25 21:00 07/02/25 08:00 Famotidine 20 Mg/2 Ml Vial IV PUSH 20 mg Q12HR ANALY Administration Hydromorphone HCl 1 mg 06/29/25 13:39 06/30/25 13:19 Hydromorphone Hcl Inj (*Crx) 1 Mg/Ml Syr IV PUSH 1 mg Q2H PRN Administration Breakthrough Pain Rated 7-10 or NPO Hydromorphone HCl 0.5 mg 06/29/25 13:39 07/01/25 10:21 Hydromorphone Hcl Inj (*Crx) 1 Mg/Ml Syr IV PUSH 0.5 mg Q2H PRN Administration Breakthrough Pain Rated 4-6 or NPO Naloxone HCl 0.1 mg 06/29/25 13:39 Naloxone Hcl 0.4 Mg/Ml Vial IV PUSH Q2M PRN Opiate Reversal Ondansetron HCl 4 mg 06/29/25 13:39 07/01/25 10:21 Ondansetron Inj 4 Mg/2 Ml Vial IV PUSH 4 mg Q4H PRN Administration Nausea And Vomiting Zolpidem Tartrate 10 mg 06/30/25 00:21 07/01/25 23:13 Zolpidem Tartrate (*Crx) 5 Mg Tablet PO 10 mg HS PRN Administration Insomnia Labs Labs: Laboratory Results - last 24 hr 07/02/25 06:53 WBC 4.2 L RBC 2.90 L Hgb 7.4 L Hct 24.6 L MCV 84.8 MCH 25.5 L MCHC 30.1 L RDW 19.4 H Plt Count 362 MPV 9.9 Sodium 136 L Potassium 3.8 Chloride 108 H Carbon Dioxide 25 Anion Gap 3 L BUN 3 L Creatinine 0.63 L Estim Creat Clear Calc 97 Estimated GFR > 60 Glucose 105 Calcium 8.3 L
[2025-07-02 19:52] VITALS: O2SAT 98
[2025-07-02] MEDS: FAMOTIDINE 20 MG TABLET PO (20:49)
[2025-07-02 22:00] VITALS: BP 142/79; PULSE 85; RESP 20; TEMP 36.4; O2SAT 100
[2025-07-02] MEDS: ZOLPIDEM TARTRATE (*CRX) 5 MG TABLET 10 MG PO (23:23)
[2025-07-03 05:15] LABS: Hematocrit 25.0 % (37.0-47.0); Hemoglobin 7.5 g/dL (12.0-15.0); Mean Corpuscular HGB Conc 30.0 g/dl (32-36); Mean Corpuscular Hemoglobin 25.1 pg (26-34); Mean Corpuscular Volume 83.6 fl (80-100); Platelet Count Result 371 k/mm3 (150-375); Red Blood Count 2.99 M/mm3 (4.2-5.4); White Blood Count 5.2 K/mm3 (4.5-10.0)
[2025-07-03 05:21] VITALS: BP 125/88; PULSE 83; RESP 20; TEMP 36.2; O2SAT 99
[2025-07-03 05:37] LABS: Anion Gap 4 mmol/L (4-12); Blood Urea Nitrogen 8 mg/dL (7-17); Calcium 8.5 mg/dL (8.4-10.2); Carbon Dioxide 25 mmol/L (22-30); Chloride 105 mmol/L (98-107); Estimated CRCL calculation 99 ml/min; Estimated Glomerular Filt Rate > 60; Glucose 89 mg/dL (65-110); Potassium 4.0 mmol/L (3.4-5.0); Sodium 134 mmol/L (137-145)
[2025-07-03] MEDS: ENOXAPARIN 40 MG/0.4 ML SYRINGE SUB-Q (08:30)
[2025-07-03] MEDS: FAMOTIDINE 20 MG TABLET PO (08:30)
--- NOTE | 2025-07-03 09:52 | P.DS_ITS ---
DS: Admitting Diagnosis Discharge Date 07/03/2025 Admitting Diagnosis Small-bowel adenocarcinoma Anemia DS: Discharge Diagnosis Discharge Diagnosis (1) Adenocarcinoma of small bowel: Code(s): C17.9 - Malignant neoplasm of small intestine, unspecified Status: Chronic (2) BARI (iron deficiency anemia): Qualifiers: Iron deficiency anemia type: chronic blood loss Qualified Code(s): D50.0 - Iron deficiency anemia secondary to blood loss (chronic) Code(s): D50.9 - Iron deficiency anemia, unspecified Status: Chronic DS: Summary Hospital Course Reason for hospitalization: This is a 45-year-old female who was evaluated as an outpatient in our office by Dr. Jones at the request of Dr. Pham for evaluation of adenocarcinoma. She has a history of iron deficiency anemia requiring blood transfusions. She had a capsule endoscopy done on 05/26/2025 which showed using an jejunum likely from ulcerated lesions. She then had an EGD on on 06/09/2025 which showed an intestinal mass and gastric retention, with pathology showing adenocarcinoma. Decision was made to proceed with hand assisted laparoscopic small bowel resection, which she presented for on 06/29/2025. Hospital Course: Patient underwent hand assisted laparoscopic small bowel resection by Dr. Jones on 06/29/2025. Surgery was straightforward. Following surgery, serial labs have been monitored. Her anemia has remained stable with her hemoglobin around 7.4-7.5. She developed a postoperative ileus, but this resolved with bowel rest and time. Once bowel function started to return, her diet was advanced as tolerated. Bowels were moving by postop day 4 inch she is tolerating a regular diet at this time. No nausea or vomiting. She is eating well. She is tolerating activity and postoperative incisional pain is well controlled with oral pain medication. She is stable for discharge today. Pathology still pending on discharge. Status at Discharge Functional status at discharge: independent ambulation Overall status at discharge: patient is progressing back to baseline Time Spent with Patient Time attestation: Total time spent providing and/or coordinating discharge services: Time spent: Less than 30 minutes Exam Const: General: comfortable and no acute distress GI: Inspection: non-distended and incision (incisions dry and intact) GI Palp: Yes Soft to palpation, Yes Tenderness to palpation present (GI) (incisional) and No Guarding due to palpation present (GI) Auscultation: normal bowel sounds Neuro: General: moves all extremities and no focal motor deficits Extrem: General: no calf tenderness and no edema Psych: Mental Status: mental status grossly normal Insight: Good insight present (Psych) DS: Data Data Completed and Pending Pending studies at discharge: Pending at discharge 06/29/25 13:14 Surgical [PTH] Routine Labs on day of discharge: Labs from last 24 hours 07/03/25 04:52 WBC 5.2 RBC 2.99 L Hgb 7.5 L Hct 25.0 L MCV 83.6 MCH 25.1 L MCHC 30.0 L RDW 19.2 H Plt Count 371 MPV 9.6 Sodium 134 L Potassium 4.0 Chloride 105 Carbon Dioxide 25 Anion Gap 4 BUN 8 D Creatinine 0.63 L Estim Creat Clear Calc 99 Estimated GFR > 60 Glucose 89 Calcium 8.5 Procedures/Treatments: Procedures Operation Date: 06/29/25 14:00 Actual Procedure Side Surgeon p Hand Assisted Laparoscopic Small Bowel Resection Not Applicable Nuha Jones MD Discharge Plan Discharge Attending physician on discharge: Nuha Jones Discharging Clinician: Nereida Barker Anticipated Discharge Date/Time: 07/03/25 10:08 Patient Disposition: Home Activity: may shower and no straining Diet: as tolerated Wound Care Instructions: incision open to air Discharge Instructions: DISCHARGE INSTRUCTION SHEET FOR DR. JONES 1. May shower, no soaking in bath x 2weeks. 2. Call office for: * Wound increasingly painful or bleeding * Vomiting * Fever of greater than 101 degrees 3. No heavy lifting > 10-15 pounds x 4-6 weeks. Your surgeon will give you instructions on lifting once seen in the office for follow-up. 4. No driving for 1 week or while taking narcotic pain medication 5. Up walking 10-30 minutes three times per day. 6. Follow-up as scheduled with Dr. Jones on 07/12/25 at 10:45am. Call sooner with any surgical concerns/questions. ([phone]) 7. Oral pain medications prescription sent to the pharmacy electronically. Take Tylenol 500mg every 6 hours and Ibuprofen 600mg every 6 hours as needed. Patient Instructions: Antibiotic Form Patient Language: Mauritian Stand Alone Forms: General Discharge Information Follow-up/Referrals: Nuha Jones MD [Physician, General Surgery] - 2 Weeks Discharge Medications: New hydrocodone-acetaminophen 5-325 mg tablet 1 tablet PO Q6H PRN (Reason: pain) Qty: 20 0RF docusate sodium [Colace] 100 mg capsule 100 mg PO BID Qty: 20 0RF Continued citalopram 10 mg tablet 10 mg PO DAILY ferrous sulfate 325 mg (65 mg iron) Tablet,Delayed Release (Dr/Ec) 325 mg PO BID Qty: 60 0RF atomoxetine 40 mg PO DAILY Patient Comments: . Wegovy 0.25 mg/0.5 mL pen injector 0.25 mg subcut WEEKLY ergocalciferol (vitamin D2) 1,250 mcg (50,000 unit) capsule 50,000 unit PO WEEKLY Patient Comments: takes on tuesdays Qulipta 30 mg Tablet 30 mg PO DAILY PRN (Reason: MIGRAINES) Patient Comments: . ondansetron 4 mg tablet,disintegrating 4 mg PO Q8H PRN (Reason: nausea and vomiting) Qty: 14 0RF zolpidem 10 mg tablet 10 mg PO HS Discontinued ciprofloxacin HCl 500 mg tablet 500 mg PO .COMPLEX Qty: 1 0RF Rx Instructions: 500 mg orally Take 1 tablet by mouth at 2pm the day before surgery.; metronidazole 500 mg tablet 500 mg PO .COMPLEX Qty: 3 0RF Rx Instructions: 500 mg orally Take 1 tablet by mouth at 1pm, 2pm, and 11pm the day before surgery.; Date of admission: 06/29/25 13:40 Primary Care Provider: Tavon,Annmarie Dalton Admitting Provider: Nuha Jones Attending physician on admission: Nuha Jones Condition: Stable Quality VTE Prophylaxis VTE prophylaxis: mechanical ordered and pharmacologic ordered
== END 2025-07-03 12:55 | disposition home or self-care (01) | DRG 330 ==
LOC: ANH3MED 15:19
PROVIDERS: Anesthesiology; Surgery; Admitting Provider Surgery; Visit Provider Nurse Practitioner Family
PROC: 0DTF4ZZ Resection of Right Large Intestine, Percutaneous Endoscopic Approach (ICD-10-PCS; CPT 44204; principal; 2025-06-29 14:00)
DX: C17.1 Malignant neoplasm of jejunum (principal); K56.7 Ileus, unspecified; K91.89 Other postprocedural complications and disorders of digestive system; D50.9 Iron deficiency anemia, unspecified; D55.0 Anemia due to glucose-6-phosphate dehydrogenase [G6PD] deficiency
CPT/HCPCS: 36415; 80048; 85014; 85018; 85027; 88309; 88342; 93005; J0690; A9270; J1171; J1650; J1836; J2250; J2405; J3010; J3480; J7120

== ENCOUNTER 2025-08-08 10:38 | Outpatient (CLI) | payer OTHER, SELFPAY ==
--- NOTE | ~2025-08-08 | MM_ITS ---
EXAMINATION: MM screening dora BI w nilsa HISTORY: Screening TECHNIQUE: Craniocaudal and mediolateral oblique 3-D tomosynthesis images were obtained and synthetic 2-D images were generated. CAD analysis was submitted and interpreted. COMPARISON: 01/12/2024 BREAST PARENCHYMAL COMPOSITION: Dense: The breasts are extremely dense, which lowers the sensitivity of mammography. FINDINGS: There are developing masses in the upper outer quadrant and central aspect of the right breast as well as the upper outer quadrant of the left breast. There is focal asymmetry posterior to the nipple on MLO view. IMPRESSION: 1. Developing bilateral breast masses as well as left breast asymmetry. 2. Additional mammographic views and possible breast ultrasound are recommended. BI-RADS Category 0: Incomplete: Needs additional imaging evaluation. Reviewed, dictated and finalized at location B. IMPRESSION: 1. Developing bilateral breast masses as well as left breast asymmetry. 2. Additional mammographic views and possible breast ultrasound are recommended . BI-RADS Category 0: Incomplete: Needs additional imaging evaluation.
--- OUTSIDE RECORDS SUMMARY | 2025-08-08 11:26 | XMS_ITS | Clinical Summary ---
Author Organization [facility] Lenore Leal Address [address] [place] [address] Care Team Providers Care Precision Agriculture Technician Name Role Phone Mark Burdick MD Primary Care Provider [phone] Allergies No known active allergies Medications traZODone [...] 10 mg by mouth daily. 06/11/2025 Active docusate sodium (COLACE) 100 mg capsule Take 1 Capsule by mouth 2 times daily. 07/03/2025 Active oxyCODONE-aceta minophen (PERCOCET) 5-325 mg tablet Take 1 Tablet by mouth every 4 hours as needed for Pain, Moderate. Active Active Problems No known active problems Encounters Date Type Department Care Team Description 07/06/2025 Abstract [facility] Oncology and Hematology - [place] [address] [place] [address] Alex Locke MD 07/05/2025 9:45 AM CDT Office Visit [facility] Oncology and Hematology - [place] [address] [place] [phone] Alex Locke MD Chronic anemia (Primary Dx) 07/05/2025 Orders Only [facility] Oncology and Hematology - [place] [address] [place] [phone] Alex Locke MD 06/29/2025 Abstract [facility] Oncology and Hematology - [place] [address] [place] [phone] Alex Locke MD 06/29/2025 Orders Only [facility] Oncology and Hematology - [place] [address] [place] [phone] Alex Locke MD 06/28/2025 Orders Only [facility] Oncology and Hematology - [place] [address] [place] [address] Alex Locke MD 06/27/2025 Orders Only [facility] Oncology and Hematology - [place] [address] [place] [phone] Alex Locke MD Chronic anemia (Primary Dx) 06/27/2025 Orders Only [facility] Oncology and Hematology - [place] [address] [place] [phone] Alex Locke MD Chronic anemia (Primary Dx) 06/16/2025 7:52 AM CDT - 06/16/2025 11:59 PM CDT Hospital Encounter [facility] [address] [place] [address] Alex Locke MD Discharge Disposition: Home or Self Care 06/15/2025 Orders Only [facility] Oncology and Hematology - [place] [address] [place] [phone] Alex Locke MD 06/14/2025 11:30 AM CDT Office Visit [facility] Oncology and Hematology - [place] [address] [place] [address] Alex Locke MD Small bowel cancer (CMS/HCC) (Primary Dx); Chronic anemia 06/13/2025 External Device Data STL ABSTRACTION Provider, Abstract 06/09/2025 Abstract [facility] Oncology and Hematology [facility] [address] [place] [address] Alex Locke MD 05/24/2025 External Device Data STL ABSTRACTION Provider, Abstract 05/24/2025 External Device Data STL ABSTRACTION Provider, Abstract 05/24/2025 External Device Data STL ABSTRACTION Provider, Abstract 05/19/2025 Telephone [facility] Oncology and Hematology [facility] [address] [place] [address] Alex Locke MD Feeling sick from Last 3 Months Family History Medical [...] Sign Reading Time Taken Comments Blood Pressure 120/74 07/05/2025 9:44 AM CDT Pulse 76 07/05/2025 9:44 AM CDT Temperature 36.6 C (97.8 F) 07/05/2025 9:44 AM CDT Respiratory Rate 12 07/05/2025 9:44 AM CDT Oxygen Saturation 100% 07/05/2025 9:44 AM CDT Inhaled Oxygen Concentration - - Weight 72 kg (158 lb 12.8 oz) 07/05/2025 9:44 AM CDT Height 160 cm (5' 3) 06/21/2024 10:56 AM CDT Body Mass Index 28.13 06/21/2024 10:56 AM CDT Plan of Treatment Upcoming Encounters Date Type Department Care Team (Late st Contact Info) Description 08/16/2025 11:00 AM CDT Office Visit [facility] Oncology and Hematology [facility] [address] [facility] [address] [place] [address] Alex Locke MD [address] [facility] [address] [place] [address] Health Maintenance Due Date Last Done Comments Pre-Diabetes and Diabetes Screening 1982 HEPATITIS B VACCINES (1 of 3 - 19+ 3-dose series) 2001 HPV/Cotest (21-29) 2003 HPV VACCINES (1 - 3-dose SCD M series) 2009 HPV/Cotest (30-65) 2012 CERVICAL CANCER SCREENING 02/09/2022 PAP SMEAR 02/09/2022 02/09/2019 BREAST CANCER SCREENING 2022 INFLUENZA VACCINE (#1) 2025 , 08/25/2023, 08/24/2020, Additional history exists COVID-19 Vaccine (3 - 2024-2 6 season) 2025 2021, 03/22/2021 DTAP/TDAP/TD VACCINES (2 - T d or Tdap) 10/14/2028 10/14/2018 Procedures Procedure Name Priority Date/Time Associated Diagnosis Comments BASIC METABOLIC PANEL Routine 07/05/2025 3:31 PM CDT CBC WITH AUTODIFFERENTIAL Routine 07/05/2025 1:40 PM CDT INFUSION THERAPY Routine 06/28/2025 1:41 PM CDT CBC WITH AUTODIFFERENTIAL Routine 06/27/2025 9:52 AM CDT [facility] XF Routine 06/22/2025 8:47 AM CDT Small bowel cancer (CMS/HCC) PET TUMOR OR INFECTION IMG W CT SKB MDTH Routine 06/16/2025 9:29 AM CDT Small bowel cancer (CMS/HCC) POC GLUCOSE Routine 06/16/2025 8:03 AM CDT [facility] DNA AND RNA Routine 06/14/2025 1:34 PM CDT Small bowel cancer (CMS/HCC) [facility] NORMAL BLOOD Routine 1:34 PM CDT Small bowel cancer (CMS/HCC) [facility] DNA AND RNA SOLID TUMOR Routine 06/14/2025 1:34 PM CDT Small bowel cancer (CMS/HCC) IRON, TIBC, AND PERCENT SATURATION Routine 06/14/2025 12:44 PM CDT CEA Routine 06/14/2025 12:31 PM CDT CBC WITH AUTODIFFERENTIAL Routine 06/14/2025 12:24 PM CDT from Last 3 Months Results * BASIC METABOLIC PANEL (07/05/2025 3:31 PM CDT) Blood us Alex Locke MD CHEMISTRY ORDERABLES Final Resu lt * CBC WITH AUTODIFFERENTIAL (07/05/2025 1:40 PM CDT) Only the most recent of3 resultswithin the time period is included. Blood us Alex Locke MD HEMATOLOGY ORDERABLES Final Res ult * INFUSION THERAPY (06/28/2025 1:41 PM CDT) us Alex Locke MD INFUSION - IV ORDERABLES [...] AM CDT [facility] [email or web address] 06/22/2025 8:47 AM CDT [facility] Comment:[facility] Portal link Low Coverage Regions ERRFI1, JAK1, KMT2A, MSH3, SPOP, TERT, TSC2 06/22/2025 8:47 AM CDT [facility] Trial Count 3 06/22/2025 8:47 AM CDT [facility] Tempus: Clinical Trial Match 1 Clinical Trial NCT ID: [id number] Clinical Trial Title: Study of Perioperative Dostarlimab in Participants With Untreated T4N0 or Stage III dMMR/MSI-H Resectable Colon Cancer Clinical Trial URL: [email or web address].gov/[email or web address] Clinical Phase: Phase 3 Clinical Trial Matches: 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 Clinical Trial Distance and Location: [address] [place], [place] 06/22/2025 8:47 AM CDT [facility] Tempus: Clinical Trial Match 2 Clinical Trial NCT ID: [id number] Clinical Trial Title: TAPUR: Testing the Use of Food and Drug Administration (FDA) Approved Drugs That Target a Specific Abnormality in a Tumor Gene in People With Advanced Stage Cancer Clinical Trial URL: [email or web address] rials.gov/[email or web address]/[email or web address] Clinical Phase: Phase 2 Clinical Trial Matches: 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 Clinical Trial Distance and Location: [address] [place], [place] 06/22/2025 8:47 AM CDT [facility] Tempus: Clinical Trial Match 3 Clinical Trial NCT ID: [id number] Clinical Trial Title: Study Of ATRN-119 In Patients With Advanced Solid Tumors Clinical Trial URL: [email or web address].[email or web address]/[email or web address] Clinical Phase: Phase 1/Phase 2 Clinical Trial Matches: 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 Clinical Trial Distance and Location: [address] [place], [place] 06/22/2025 8:47 AM CDT [facility] Blood Tumor Mutational [place] Note bTMB cannot be calculated due to [...] ORDERABLES Final Resu lt [facility] [address] [facility], [address] [place] [address], [facility] [address] [facility], [address] [place] [address] * PET TUMOR OR INFECTION IMG W CT SKB MD (06/16/2025 9:29 AM CDT) Anatomical Region Laterality [...] upper lobe pulmonary nodule. DICTATION LOCATION: Location [address] [place] [address] 06/16/2025 10:54 AM CDT EXAMINATION: PET TUMOR OR INFECTION IMG W CT SKB MDTH DATE: 06/16/2025 9:29 AM REFERRING PHYSICIAN: ALEX [...] TUMOR OR INFECTION IMG W CT SKB [facility] DATE: 06/16/2025 9:29 AM REFERRING PHYSICIAN: ALEX [...] upper lobe pulmonary nodule. DICTATION LOCATION: Location [address] [place] [address] us Alex Locke MD PE ORDERABLES Final Result * POC GLUCOSE (06/16/2025 8:03 AM CDT) [facility] GLUCOSE POC 93 74 - 99 mg/dL 06/16/2025 8:03 AM CDT [facility] SPECIMEN SOURCE, GLUCOSE POC Whole Blood 06/16/2025 8:03 AM CDT [facility] Blood, whole 06/16/2025 8:03 AM CDT 06/16/2025 8:18 AM CDT us Alex Locke MD POINT OF CARE TESTING Final Res ult [facility] CLIA#[id number] [address] [place] [address] * [facility] NORMAL BLOOD (06/14/2025 1:34 PM CDT) [facility] Portal 06/14/2025 11:00 PM CDT [facility] Comment:See NGS Report for R esults. Blood specimen (specimen) 06/14/2025 1:34 PM CDT 06/14/2025 9:58 PM CDT us Alex Locke MD MOLECULAR ORDERABLES Final Resu lt [facility] [address] [facility], [address] [place] [address], [facility] [address] [facility], [address] [place] [address] * [facility] DNA AND RNA SOLID TUMOR (06/14/2025 1:34 PM CDT) [facility] Reason for Study To identify somatic and germline mutations relevant to patient's cancer. 07/22/2025 12:03 PM CDT [facility] Genetic Diseases Assessed Cancer 07/22/2025 12:03 PM CDT [facility] Description of Ranges of DNA Sequences Examined 648 gene panel 07/22/2025 12:03 PM CDT [facility] Overall Interpretation positive 07/22/2025 12:03 PM CDT [facility] MSI MSI-H 07/22/2025 12:03 PM CDT [facility] TMB 46.3 m/MB 07/22/2025 12:03 PM CDT [facility] Portal [email or web address] 07/22/2025 12:03 PM CDT [facility] Comment:[facility] Portal link Pertinent Negatives KRAS, BRAF, NRAS 07/22/2025 12:03 PM CDT [facility] Low Coverage Regions KDM5D 07/22/2025 12:03 PM CDT [facility] Therapy Count 10 07/22/2025 12:03 PM CDT [facility] Tempus: Potential Therapy 1 Gene: N/A Variant: N/A Match Type: msi Agent: Dostarlimab Drug Class: Anti-PD-1 MAb Tissue: Small Bowel Adenocarcinoma Association: Response Evidence Status: Consensus Evidence ID: NCCN KDB Variant: Microsatellite Instability - High NCCN Associated Evidence: Consensus, Small Bowel Adenocarcinoma MSK Associated Evidence: MSK OncoKB, Level 2 Label: FDA On Label FDA Approved?: Yes On label?: Yes 07/22/2025 12:03 PM CDT [facility]: Potential Therapy 2 Gene: N/A Variant: N/A Match Type: msi Agent: Pembrolizumab Drug Class: Anti-PD-1 MAb Tissue: Small Bowel Adenocarcinoma Association: Response Evidence Status: Consensus Evidence ID: NCCN KDB Variant: Microsatellite Instability - High NCCN Associated Evidence: Consensus, Small Bowel Adenocarcinoma Label: FDA On Label FDA Approved?: Yes On label?: Yes 07/22/2025 12:03 PM CDT [facility] Tempus: Potential Therapy 3 Gene: N/A Variant: N/A Match Type: tmb Agent: Pembrolizumab Drug Class: Anti-PD-1 MAb Tissue: Small Bowel Adenocarcinoma Association: Response Evidence Status: Consensus Evidence ID: NCCN KDB Variant: TMB-High NCCN Associated Evidence: Consensus, Small Bowel Adenocarcinoma Label: FDA On Label FDA Approved?: Yes On label?: Yes 07/22/2025 12:03 PM CDT [facility] Tempus: Potential Therapy 4 Gene: N/A Variant: N/A Match Type: msi Agent: Cemiplimab Drug Class: Anti PD-1 MAb Tissue: Small Bowel Adenocarcinoma Association: Response Evidence Status: Consensus Evidence ID: NCCN KDB Variant: Microsatellite Instability - High NCCN Associated Evidence: Consensus, Small Bowel Adenocarcinoma Label: FDA Off Label FDA Approved?: Yes On label?: No 07/22/2025 12:03 PM CDT [facility]: Potential Therapy 5 Gene: N/A Variant: N/A Match Type: msi Agent: Nivolumab Drug Class: Anti-PD-1 MAb Tissue: Small Bowel Adenocarcinoma Association: Response Evidence Status: Consensus Evidence ID: NCCN KDB Variant: Microsatellite Instability - High NCCN Associated Evidence: Consensus, Small Bowel Adenocarcinoma MSK Associated Evidence: MSK OncoKB, Level 2 Label: FDA Off Label FDA Approved?: Yes On label?: No 07/22/2025 12:03 PM CDT [facility]: Potential Therapy 6 Gene: N/A Variant: N/A Match Type: msi Agent: Retifanlimab-dlwr Drug Class: Anti-PD-1 MAb Tissue: Small Bowel Adenocarcinoma Association: Response Evidence Status: Consensus Evidence ID: NCCN KDB Variant: Microsatellite Instability - High NCCN Associated Evidence: Consensus, Small Bowel Adenocarcinoma Label: FDA Off Label FDA Approved?: Yes On label?: No 07/22/2025 12:03 PM CDT [facility] Tempus: Potential Therapy 7 Gene: N/A Variant: N/A Match Type: msi Agent: Tislelizumab-jsgr Drug Class: Anti-PD-1 MAb Tissue: Small Bowel Adenocarcinoma Association: Response Evidence Status: Consensus Evidence ID: NCCN KDB Variant: Microsatellite Instability - High NCCN Associated Evidence: Consensus, Small Bowel Adenocarcinoma Label: FDA Off Label FDA Approved?: Yes On label?: No 07/22/2025 12:03 PM CDT [facility] Tempus: Potential Therapy 8 Gene: N/A Variant: N/A Match Type: msi Agent: Toripalimab-tpzi Drug Class: Anti-PD-1 MAb Tissue: Small Bowel Adenocarcinoma Association: Response Evidence Status: Consensus Evidence ID: NCCN KDB Variant: Microsatellite Instability - High NCCN Associated Evidence: Consensus, Small Bowel Adenocarcinoma Label: FDA Off Label FDA Approved?: Yes On label?: No 07/22/2025 12:03 PM CDT [facility]: Potential Therapy 9 Gene: N/A Variant: N/A Match Type: msi Agent: Nivolumab + Ipilimumab Drug Class: Combination (Anti-PD-1 MAb + Anti-CTLA4 MAb) Tissue: Small Bowel Adenocarcinoma Association: Response Evidence Status: Consensus Evidence ID: NCCN KDB Variant: Microsatellite Instability - High NCCN Associated Evidence: Consensus, Small Bowel Adenocarcinoma MSK Associated Evidence: MSK OncoKB, Level 2 Label: FDA Off Label FDA Approved?: Yes On label?: No 07/22/2025 12:03 PM CDT [facility]: Potential Therapy 10 Gene: 795^HUNTER^HGNC Variant: p.S214fs Match Type: snvIndel Match Type Description: HUNTER p.S214fs Agent: Olaparib Drug Class: PARP Inhibitor Tissue: Prostate Cancer Association: Response Evidence Status: Consensus Evidence ID: NCCN KDB Variant: Ibpr-xe-nhqjxnnu Label: FDA Off Label FDA Approved?: Yes On label?: No 07/22/2025 12:03 PM CDT [facility] Trial Count 3 07/22/2025 12:03 PM CDT [facility]: Clinical Trial Match 1 Clinical Trial NCT ID: [id number] Clinical Trial Title: Study of DECOY20 With or Without Tislelizumab in Patients With Advanced Solid Tumors Clinical Trial URL: [email or web address].gov/[email or web address]/[email or web address] Clinical Phase: Phase 1/Phase 2 Clinical Trial Matches: MSI high Clinical Trial Distance and Location: [address] [place] [address] 07/22/2025 12:03 PM CDT [facility]: Clinical Trial Match 2 Clinical Trial NCT ID: [id number] Clinical Trial Title: Tumor-agnostic Precision Immuno-oncology and Somatic Targeting Rational for You (TAPISTRY) Platform Study Clinical Trial URL: [email or web address].gov/[email or web address]/[email or web address] Clinical Phase: Phase 2 Clinical Trial Matches: HUNTER p.S214fs mutation Clinical Trial Distance and Location: [address] [place], [place] 07/22/2025 12:03 PM CDT [facility] Tempus: Clinical Trial Match 3 Clinical Trial NCT ID: [id number] Clinical Trial Title: Study of INBRX-106 and INBRX-106 in Combination With Pembrolizumab (Keytruda ) in Subjects With Locally Advanced or Metastatic Solid Tumors (Hexavalent OX40 Agonist) Clinical Trial URL: [email or web address] Clinical Phase: Phase 1/Phase 2 Clinical Trial Matches: MSI high, TMB-High Clinical Trial Distance and Location: [address], [place], [place] 07/22/2025 12:03 PM CDT [facility] xR Result 1 NEGATIVE Negative - This report is being issued to report the results of gene rearrangement and altered splicing analysis from RNA sequencing. No gene rearrangements nor reportable altered splicing events were identified from RNA sequencing. 07/22/2025 12:03 PM CDT [facility] Tissue specimen (specimen) 06/14/2025 1:34 PM CDT 07/05/2025 4:33 PM CDT Narrative This result has genomic variants that were not included in this document. us Alex Locke MD MOLECULAR ORDERABLES Edited Res ult - Final [facility] [address], [address] [place] [address], [facility] [address], [address] [place] [address] * IRON, TIBC, AND PERCENT SATURATION (06/14/2025 12:44 PM CDT) Blood Alex Locke MD CHEMISTRY ORDERABLES Final Resu lt * CEA (06/14/2025 12:31 PM CDT) Blood Alex Locke MD CHEMISTRY ORDERABLES Final Resu lt from Last 3 Months Insurance [facility] Care Teams Precision Agriculture Technician Relationship Specialty Start Date End Date Mark Burdick MD [address] [place] [phone] PCP - General Family Practice 06/21/24
--- OUTSIDE RECORDS SUMMARY | 2025-08-08 11:26 | XMS_ITS | Clinical Summary ---
Author Organization [facility] Address [address] [place] [address] Care Team Providers Care Licensed Sales Assistant Name Role Phone Non-Staff, Provider Primary Care Provider Joel gomez Encounters Date Type Department Care Team Description 06/23/2025 10:30 AM CDT - 06/23/2025 11:59 PM CDT Hospital Encounter [facility] [place] [address] [place] [address] Fabrizio Ornelas MD Discharge Disposition: Home or Self Care (Routine Discharge) 06/23/2025 9:30 AM CDT - 06/23/2025 10:29 AM CDT Hospital Encounter [facility] [address] [place] [address] Fabrizio Ornelas MD Discharge Disposition: Home or [...] Screening 2022 COVID-19 Vaccine (2023-2 5 season) 2025 Meningococcal B Vaccine Aged Out No l [...] 4:33 PM Narrative 06/23/2025 4:[address] PM [address]T [address] [address] EXAMINATION: Small bowel follow-through EXAM DATE: 06/23/2025 11:04 AM REASON FOR EXAM: bleeding Abnormal capsule endoscopy COMPARISON: None TECHNIQUE: Supervisor Compounding And Finishing image of the abdomen was obtained. This was followed by imaging of the abdomen at 20, 40, 60, 90, 120, 150, 180, 210 minutes after administration. FINDINGS: Supervisor Compounding And Finishing image of the abdomen demonstrates retained capsule [...] Procedure Note Osmany Pina MD - 06/23/[address] [address] EXAMINATION: Small bowel follow-through EXAM DATE: 06/23/2025 11:04 AM REASON FOR EXAM: bleeding Abnormal capsule endoscopy COMPARISON: None TECHNIQUE: Supervisor Compounding And Finishing image of the abdomen was obtained. This was followed byimaging of the abdomen at 20, 40, 60, 90, 120, 150, 180, 210 minutes afteradministration. FINDINGS: Supervisor Compounding And Finishing image of the abdomen demonstrates retained capsule [...] 6:41 PM Narrative 06/24/2025 6:46 PM CDT [address] [address] EXAMINATION: CT Abdomen and Pelvis with contrast [...] Procedure Note Kahlil Webber MD - 06/24/2025 [place] [address] EXAMINATION: CT Abdomen and Pelvis with contrast [...] from Last 3 Months Insurance Care Teams Licensed Sales Assistant Relationship Specialty Start Date End Date Non-Staff, Provider PCP - General UNKNOWN PHYSICIAN SPECIALTY 06/23/25
== END 2025-08-08 10:39 | disposition home or self-care (01) ==
PROVIDERS: Visit Provider Nurse Practitioner
DX: Z12.31 Encounter for screening mammogram for malignant neoplasm of breast (principal); N64.89 Other specified disorders of breast
CPT/HCPCS: 77063; 77067

== ENCOUNTER 2025-09-15 12:15 | Outpatient (CLI) | payer OTHER, SELFPAY ==
--- NOTE | ~2025-09-15 | MMUS_ITS ---
EXAMINATION: MM diagnostic dora BI w nilsa, US breast BI limited INDICATION: 45-year old female; BI-RADS 0, callback to evaluate bilateral breast masses. COMPARISON: 08/08/2025 and 01/12/2024 TECHNIQUE: Digital breast tomosynthesis True lateral and spot compression views of both breasts were obtained with computer-aided detection to assist in interpretation of the study. Focused bilateral breast ultrasound were completed. FINDINGS: The breasts are extremely dense, which lowers the sensitivity of mammography. Circumscribed masses persists in the superior lateral as well as in the retroareolar region at middle depth in the right breast. Circumscribed masses persists in the upper outer left breast. Ultrasound was performed for further evaluation. BILATERAL BREAST ULTRASOUND FINDINGS: Right breast: At 10:00, 6 cm FN, there is a circumscribed hypoechoic mass that measure 1.12 x 3.8 x 1.08 cm which correlates to a mammographic finding. This finding is probably benign. At at 10:00, 7 cm FN there is a 1.29 x 0.95 x 1.44 cm circumscribed cyst correlates to a mammographic finding. In the retroareolar region there is a dominant cyst that measure 2.52 x 1.38 x 2.44 cm which correlates to a mammographic finding. Left breast: At 1:00, 9 cm FN, there is a 0.7 x 0.53 x 1.00 cm cyst which correlates to a mammographic finding. At 2:00, 4 cm FN there is a 0.87 x 0.57 x 0.726 cm cyst which correlates to the mammographic finding. IMPRESSION: Probable Benign RIGHT breast mass at 10:00, 6 cm FN. Short-term follow-up recommended. Multiple bilateral simple cysts that correlate to mammographic finding. No further investigation necessary. RECOMMENDATION: 6 month follow-up diagnostic RIGHT mammogram and RIGHT breast ultrasound. BI-RADS 3, PROBABLY BENIGN Reviewed, dictated and finalized at location B. RDOUS MATERIAL SPECIALIST IMPRESSION: Probable Benign RIGHT breast mass at 10:00, 6 cm FN. Short-term follow-up recom mended. Multiple bilateral simple cysts that correlate to mammographic finding. No furt her investigation necessary. RECOMMENDATION: 6 month follow-up diagnostic RIGHT mammogram and RIGHT breast ultrasound. BI-RADS 3, PROBABLY BENIGN
--- OUTSIDE RECORDS SUMMARY | 2025-09-15 12:30 | XMS_ITS | Encounter Summary ---
Author Organization [facility] Address [address] [place] [address] Care Team Providers Care Soaker Name Role Phone Mark Burdick MD Primary Care Provider [phone] Encounter Details Date Type Department Care Team (Late st Contact Info) Description 09/13/2025 External Device Data STL ABSTRACTION Provider, Abstract [...] Care Team (Late st Contact Info) Description 10/30/2025 2:00 PM PRESCHOOL EDUCATION DIRECTOR Office Visit [facility] Oncology and Hematology [facility] [address] [facility] [address] [place] [address] Alex Locke MD [address] [facility] [address] [place] [address] Chico Garcia NP [address] [facility] [address] [place] [address] 11/16/2025 10:15 AM PRESCHOOL EDUCATION DIRECTOR Office Visit [facility] Oncology and Hematology [facility] [address] [facility] [address] [place] [phone] Alex Locke MD [address] [facility] [address] [place] [address] documented as of this encounter Visit Diagnoses Not on filedocumented in this encounter Care Teams Soaker Relationship Specialty Start Date End Date Mark Burdick MD [address] [place] [phone] PCP - General Family Practice 06/21/24 documented as of this encounter
--- OUTSIDE RECORDS SUMMARY | 2025-09-15 12:30 | XMS_ITS | Clinical Summary ---
Author Organization [facility] Lenore Leal Address [address] [address] Care Team Providers Care Advertising Traffic Manager Name Role Phone Mark Burdick MD Primary Care Provider [phone] Allergies No known active allergies Medications traZODone [...] Encounters Date Type Department Care Team Description 09/13/2025 External Device Data STL ABSTRACTION Provider, Abstract 09/06/2025 External Device Data STL ABSTRACTION Provider, Abstract 08/30/2025 External Device Data ST[facility] ABSTRACTION Provider, Abstract 08/16/2025 11:00 AM CDT Office Visit [facility] - [place] [address] [place] [phone] Alex Locke MD Chronic anemia (Primary Dx); Small bowel cancer (CMS/HCC) 07/06/2025 Abstract [facility] - [place] [address] [place] [address] Alex Locke MD 07/05/2025 9:45 AM CDT Office Visit [facility] - [place] [address] [place] [address] Alex Locke MD Chronic anemia (Primary Dx) 07/05/2025 Orders Only [facility] - [place] [address] [place] [address] Alex Locke MD 06/29/2025 Abstract [facility] - [place] [address] [place] [phone] Alex Locke MD 06/29/2025 Orders Only [facility] - [place] [address] [place] [phone] Alex Locke MD 06/28/2025 Orders Only [facility] - [place] [address] [place] [id number] Alex Locke MD 06/27/2025 Orders Only [facility] - [place] [address] [place] [address] Alex Lokce MD Chronic anemia (Primary Dx) 06/27/2025 Orders Only [facility] - [place] [address] [place] [address] Alex Locke MD Chronic anemia (Primary Dx) 06/16/2025 7:52 AM CDT - 06/16/2025 11:59 PM CDT Hospital Encounter [facility] [address] [place] [address] Alex Locke MD Discharge Disposition: Home or Self Care 06/15/2025 Orders Only [facility]ology - [place] [address] [place] [address] Alex Locke MD from Last [...] Sign Reading Time Taken Comments Blood Pressure 130/87 08/16/2025 11:09 AM CDT Pulse 74 08/16/2025 11:09 AM CDT Temperature 36.5 C (97.7 F) 08/16/2025 11:09 AM CDT Respiratory Rate 15 08/16/2025 11:0 9 AM CDT Oxygen Saturation 98% 08/16/2025 11: 09 AM CDT Inhaled Oxygen Concentration - - Weight 74.3 kg (163 lb 12.8 oz) 025 11:09 AM CDT Height 160 cm (5' 3) 06/21/2024 10:56 AM CDT Body Mass Index 29.02 06/21/2024 10:56 AM CDT Plan of Treatment Upcoming Encounters Date Type Department Care Team (Late st Contact Info) Description 10/30/2025 2:00 PM CHILDBIRTH AND 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 [address] [place] [address] Alex Locke MD [address] [place] [address] Health Maintenance Due Date Last [...] POC GLUCOSE Routine 06/16/2025 8:03 AM CDT from Last 3 Months Results * BASIC METABOLIC PANEL (07/05/2025 3:31 PM CDT) Blood us Alex Locke MD CHEMISTRY ORDERABLES Final Resu lt * CBC WITH AUTODIFFERENTIAL (07/05/2025 1:40 PM CDT) Only the most recent of2 [...] AM CDT [facility] Portal [email or web address] 06/22/2025 8:47 AM CDT [facility] Comment:[facility] link Low Coverage Regions ERRFI1, JAK1, KMT2A, MSH3, SPOP, TERT, TSC2 06/22/2025 8:47 AM CDT [facility] Trial Count 3 06/22/2025 8:47 AM CDT [facility]: Clinical Trial Match 1 Clinical Trial NCT ID: [id number] Clinical Trial Title: Study of Perioperative Dostarlimab in Participants With Untreated T4N0 or Stage III dMMR/MSI-H Resectable Colon Cancer Clinical Trial URL: [email or web address] Clinical Phase: Phase 3 Clinical Trial Matches: 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 Clinical Trial Distance and Location: [address] [place], [place] 06/22/2025 8:47 AM CDT [facility]: Clinical Trial Match 2 Clinical Trial NCT ID: [id number] Clinical Trial Title: TAPUR: Testing the Use of Food and Drug Administration (FDA) Approved Drugs That Target a Specific Abnormality in a Tumor Gene in People With Advanced Stage Cancer Clinical Trial URL: [email or web address]/[email or web address] Clinical Phase: Phase 2 Clinical Trial Matches: 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 Clinical Trial Distance and Location: [address], [place] 06/22/2025 8:47 AM CDT [facility]: Clinical Trial Match 3 Clinical Trial NCT ID: [id number] Clinical Trial Title: Study Of ATRN-119 In Patients With Advanced Solid Tumors Clinical Trial URL: [email or web address] rials.gov/[email or web address] Clinical Phase: Phase 1/Phase 2 Clinical Trial Matches: 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 DICTATION LOCATION: Location [address] [place] [address] Narrative 06/16/2025 10:54 AM CDT EXAMINATION: PET TUMOR OR INFECTION IMG W CT PAUL MD DATE: 06/16/2025 9:29 AM REFERRING PHYSICIAN: [...] TUMOR OR INFECTION IMG W CT [facility] DATE: 06/16/2025 9:29 AM REFERRING PHYSICIAN: ALEX [...] right upper lobe pulmonary nodule. DICTATION LOCATION: [address] us Alex Locke MD PE ORDERABLES Final Result * POC GLUCOSE (06/16/2025 8:03 AM T) GLUCOSE POC 93 74 - 99 mg/dL 06/16/2025 8:03 AM [facility] SPECIMEN SOURCE, GLUCOSE POC Whole Blood 06/16/2025 8:03 AM [facility] Blood, whole 06/16/2025 8:0 3 AM CDT 06/16/2025 8:18 AM CDT Alex Locke MD POINT OF CARE TESTING Final Res ult [facility] CLIA#[id number] [place] [address] from Last 3 [place] [address] [facility] Care Teams Advertising Traffic Manager Relationship Specialty Start Date End Date Mark Burdick MD [address] [place] [phone] PCP - General Family Practice 06/21/24
== END 2025-09-15 12:16 | disposition home or self-care (01) ==
PROVIDERS: Visit Provider Obstetrics & Gynecology Gynecology
DX: R92.8 Other abnormal and inconclusive findings on diagnostic imaging of breast (principal); N60.02 Solitary cyst of left breast; N60.01 Solitary cyst of right breast
CPT/HCPCS: 76642; 77062; 77066; G0279

== ENCOUNTER 2025-10-23 08:10 | Outpatient (CLI) | payer OTHER, SELFPAY ==
--- NOTE | ~2025-10-23 | CT_ITS ---
Chioma Kline EXAMINATION: CT abdomen pelvis w con COMPARISON: None HISTORY: Chronic anemia TECHNIQUE: Axial images were obtained through the abdomen, pelvis post administration of IV contrast. Oral contrast was also administered. Coronal reconstruction images were obtained from the axial views. CT scan performed using dose optimization techniques including the following automated exposure control; adjustment of mA and/or kV; use of iterative reconstruction technique. Automatic exposure control was used to reduce radiation dose. Permanent radiation dose record is archived to PACS. FINDINGS: CT abdomen: LUNG BASES: The lung bases are clear. The visualized portions of the heart and pericardium are unremarkable. LIVER: Within the liver there are innumerable simple and complex appearing liver cysts the largest within the right lobe liver 2.5 x 2 cm. Portal vein patent. No intrahepatic biliary duct dilatation. SPLEEN: Unremarkable. KIDNEYS: Right Kidney: Unremarkable. No calculi. No hydronephrosis. Left Kidney: Unremarkable. No calculi. No hydronephrosis ADRENAL GLANDS: Unremarkable. PANCREAS: Unremarkable. GALLBLADDER/BILIARY: Unremarkable. No biliary dilatation. STOMACH AND ESOPHAGUS: Small hiatal hernia. Minimal thickening of the esophagus. BOWEL/MESENTERY: Moderate fecal content, no colitis or diverticulitis. Appendix normal. Postsurgical changes noted within the bowel. No thickened or dilated loops of small bowel. The mesentery appears normal. The large bowel is unopacified limiting evaluation. ADENOPATHY/RETROPERITONEUM: No lymphadenopathy. AORTA/VASCULATURE: Normal caliber aorta. FREE FLUID OR FREE AIR: None. CT pelvis: SOLID ORGANS/REPRODUCTIVE: Unremarkable. BLADDER: There is circumferential thickening noted of the bladder wall. OSSEOUS STRUCTURES: No acute osseous abnormality.No suspicious lesions. OVERLYING SOFT TISSUES: Postsurgical changes in the abdominal wall. IMPRESSION: Mild cystitis Reviewed, dictated and finalized at location P. ITY OPERATOR YARN IMPRESSION: Mild cystitis
== END 2025-10-23 08:11 | disposition home or self-care (01) ==
PROVIDERS: Visit Provider Internal Medicine Hematology & Oncology
DX: N30.90 Cystitis, unspecified without hematuria (principal); D64.9 Anemia, unspecified
CPT/HCPCS: 74177; Q9967